=== PATIENT | male | born 1955 | race Caucasian/White ===

== ENCOUNTER → 2023-10-23 07:55 | Outpatient (REF) | payer MEDICARE, SELFPAY ==
[2023-10-23 10:03] LABS: % Basophils 0.7 % (0-2); % Eosinophils 0.4 % (0-6); % Immature Granulocytes 0.7 % (0-0.5); % Monocytes 7.2 % (1.7-9.3); Absolute Lymphocytes 1.3 10^3/uL (1.2-3.4); Absolute Monocytes 0.2 10^3/uL (0.1-0.6); Absolute Neutrophils 1.3 10^3/uL (1.4-6.5); Hemoglobin 11.1 g/dL (13.0-18.0); Mean Corp Hgb Conc. 32.6 g/dL (33.0-37.0); Mean Corpuscular Hgb 37.2 pg (27.0-31.0); Mean Corpuscular Volume 114.1 fL (80.0-94.0); Mean Platelet Volume 10.4 fL (7.4-10.4); Nucleated Red Blood Cells % 1.4 % (-); Platelet Count 140 10^3/uL (130-400); Red Blood Cell Count 2.98 10^6/uL (4.70-6.10); Red Cell Dist. Width 12.5 % (11.5-14.5); White Blood Cell Count 2.8 10^3/uL (4.8-10.8)
[2023-10-23 10:30] LABS: C-Reactive Protein < 5.00 mg/L (0.0-10.00)
[2023-10-23 11:00] LABS: Hepatitis B Surface Antigen Negative (Negative)
[2023-10-23 11:13] LABS: Erythrocyte Sed Rate 38 mm/hour (0-20)
[2023-10-23 11:18] LABS: Hepatitis B Core Ab, Total Negative (Negative); Hepatitis C Antibody Negative (Negative)
[2023-10-23 15:14] LABS: Hepatitis A Antibody, Total Negative (Negative)
[2023-10-24 17:46] LABS: HCV Quant by NAAT IU/mL Not Detected; HCV Quant by NAAT Interp Not Detected (Not Detected); HCV Quant by NAAT Log IU/mL Not Detected log IU/mL
[2023-10-26 03:47] LABS: Quantiferon Mitogen minus NIL >10.00 IU/mL; Quantiferon NIL 0.02 IU/mL; Quantiferon Plus TB2 minus NIL 0.01 IU/mL (0.00-0.34); Quantiferon TB Gold Plus Negative (Negative)
== END ==
LOC: REG 07:55
PROVIDERS: ATTENDING PHYSICIAN Internal Medicine; FAMILY PHYSICIAN Internal Medicine
DX: K75.9 Inflammatory liver disease, unspecified (principal); M05.79 Rheumatoid arthritis with rheumatoid factor of multiple sites without organ or systems involvement; Z22.7 Latent tuberculosis; Z51.81 Encounter for therapeutic drug level monitoring
CPT/HCPCS: 36415; 85025; 85652; 86140; 86480; 86704; 86708; 86803; 87340; 87522

== ENCOUNTER → 2024-01-03 07:57 | Outpatient (REF) | payer MEDICARE, SELFPAY ==
[2024-01-03 08:49] LABS: % Basophils 0.7 % (0-2); % Immature Granulocytes 1.4 % (0-0.5); % Monocytes 9.4 % (1.7-9.3); % Neutrophils 66.5 % (42.2-75.2); Absolute Eosinophils 0.1 10^3/uL (0-0.7); Absolute Immature Granulocytes 0.1 10^3/uL (0-0.05); Absolute Lymphocytes 1.2 10^3/uL (1.2-3.4); Absolute Monocytes 0.5 10^3/uL (0.1-0.6); Absolute Neutrophils 3.8 10^3/uL (1.4-6.5); Hematocrit 30.1 % (39.0-52.0); Hemoglobin 10.2 g/dL (13.0-18.0); Mean Corp Hgb Conc. 33.9 g/dL (33.0-37.0); Mean Corpuscular Hgb 36.4 pg (27.0-31.0); Mean Corpuscular Volume 107.5 fL (80.0-94.0); Mean Platelet Volume 10.5 fL (7.4-10.4); Nucleated Red Blood Cells % 0.3 % (-); Platelet Count 203 10^3/uL (130-400); Red Cell Dist. Width 13.6 % (11.5-14.5); White Blood Cell Count 5.8 10^3/uL (4.8-10.8)
[2024-01-03 09:00] LABS: Erythrocyte Sed Rate 75 mm/hour (0-20)
[2024-01-03 09:29] LABS: ALT (SGPT) < 10 U/L (0-50); AST (SGOT) 20 U/L (17-59); Albumin 3.7 g/dl (3.5-5.0); Alkaline Phosphatase 87 U/L (38-126); Blood Urea Nitrogen 14 mg/dl (9-20); Calcium 9.3 mg/dl (8.4-10.2); Carbon Dioxide 22 mmol/L (22-30); Chloride 98 mmol/L (98-107); Glucose 83 mg/dl (70-99); Potassium 4.2 mmol/L (3.5-5.1); Sodium 134 mmol/L (135-145); Total Protein 7.1 g/dl (6.3-8.2); eGFR > 60.00
[2024-01-03 09:38] LABS: C-Reactive Protein < 5.00 mg/L (0.0-10.00)
== END ==
LOC: REG 07:57
PROVIDERS: ATTENDING PHYSICIAN Internal Medicine; FAMILY PHYSICIAN Internal Medicine
DX: M05.79 Rheumatoid arthritis with rheumatoid factor of multiple sites without organ or systems involvement (principal); Z51.81 Encounter for therapeutic drug level monitoring
CPT/HCPCS: 36415; 80053; 85025; 85652; 86140

== ENCOUNTER → 2024-01-08 07:27 | Outpatient (REF) | payer MEDICARE, SELFPAY | LOC: RAD 07:27 | PROVIDERS: ATTENDING PHYSICIAN Surgery Vascular Surgery; FAMILY PHYSICIAN Internal Medicine | DX: I77.9 Disorder of arteries and arterioles, unspecified (principal) | CPT/HCPCS: 93922; 93925 ==

== ENCOUNTER 2024-01-11 08:39 | Day surgery (SDC) | payer MEDICARE, SELFPAY ==
[2024-01-11] VITALS (25 sets, daily range): BP systolic 91–135; BP diastolic 54–92; BMI 18.3
[2024-01-11] MEDS: NSS 204 ML IV (09:21)
[2024-01-11 09:29] LABS: Hematocrit 32.5 % (39.0-52.0); Hemoglobin 10.7 g/dL (13.0-18.0); Mean Corp Hgb Conc. 32.9 g/dL (33.0-37.0); Mean Corpuscular Hgb 35.9 pg (27.0-31.0); Mean Corpuscular Volume 109.1 fL (80.0-94.0); Mean Platelet Volume 10.6 fL (7.4-10.4); Platelet Count 189 10^3/uL (130-400); Red Blood Cell Count 2.98 10^6/uL (4.70-6.10); Red Cell Dist. Width 13.6 % (11.5-14.5); White Blood Cell Count 6.1 10^3/uL (4.8-10.8)
[2024-01-11 09:35] LABS: INR 1.12; PT 14.2 Sec (11.4-14.6)
[2024-01-11 09:36] LABS: APTT 35.5 Sec (23.4-35.0)
[2024-01-11 09:39] LABS: Blood Urea Nitrogen 12 mg/dl (9-20); Calcium 9.2 mg/dl (8.4-10.2); Carbon Dioxide 26 mmol/L (22-30); Chloride 101 mmol/L (98-107); Estimated Creatinine Clearance 112 ml/min; Glucose 100 mg/dl (70-99); Potassium 4.5 mmol/L (3.5-5.1); Sodium 131 mmol/L (135-145); eGFR > 60.00
--- NOTE | 2024-01-11 10:30 | W.SUR.PREOP ---
Pre-Operative Surgical Note
-
I have examined this patient prior to the performance of the scheduled procedure.
The patient's condition is unchanged from the time of the current History and
Physical and the patient is able to undergo the scheduled procedure.
--- NOTE | 2024-01-11 11:42 | W.IMMPOSTOP ---
Surgical Immed Post Op Note
-
Primary Surgeon: Dr. Fabio Maki III, MD
Assisting Surgeon: Dr. Santiago Cervantes MD, PhD (PGY-1)
Pre-op Diagnosis: Peripheral arterial occlusive disease
Post-op Diagnosis: Peripheral arterial occlusive disease
Procedure Performed: Diagnostic angiogram of the left lower extremity
Anesthesia Type: MAC
Specimen / Cultures: None
Estimated Blood Loss: Minimal
Complications: None
Operative Findings: The right femoral artery had significant disease by ultrasound. After vascular access into the right common femoral with a micropuncture kit, a sheath was inserted. Wire access was obtained by crossing into the contralateral
iliac-femoral system. Contrast was injected and demonstrated significant disease throughout the iliac-femoral vessels. The wire was removed, and palpable pulses were confirmed along the prior left lower extremity bypass. The patient tolerated the
procedure well, and the sheath will be removed with occlusive pressure in recovery.
[2024-01-11] MEDS: DILAUDID 0.5 MG IV (12:17)
--- NOTE | 2024-01-11 15:41 | OR.RPT ---
Operative Report
Operative Report
Date of Operation: 01/11/2024
Pre Op Diagnosis:
1.) Peripheral arterial occlusive disease with suspected bypass stenosis based on abnormal surveillance duplex
2.) Previous right lower extremity [id number] amputation
Post Op Diagnosis:
1.) Peripheral arterial occlusive disease with suspected bypass stenosis based on abnormal surveillance duplex
2.) Previous right lower extremity [id number]-[id number] amputation
Procedure:
1.) Selective catheterization of first-order lower extremity artery
2.) Diagnostic aortobiiliac arteriogram
3.) Diagnostic left lower extremity arteriogram
4.) Ultrasound-guided percutaneous access to the right common femoral artery
Surgeon: Fabio Maki III, MD
Bus Girl: Santiago Cervantes MD PhD, PGY1
Anesthesia: Sedation with local
Fluoroscopy:
10.6 min
78 mGy
22.95 Gy.cm2
Complications: None
Estimated Blood Loss: Minimal
History and Indications for Procedure: 68-year-old male with known severe peripheral arterial occlusive disease and prior right lower extremity amputation. Presents with abnormal surveillance duplex of his left lower extremity bypass. I made the
recommendation that we proceed with a diagnostic arteriogram of the left lower extremity with possible endovascular intervention.
Procedure in Detail: Adam Larios was correctly identified and placed supine on the operating table. After adequate induction of anesthesia the bilateral groins were prepped and draped in the usual sterile fashion. A timeout was performed with
the nursing and anesthesia staff confirming the patient's identity as well as the nature and laterality of the procedure.
The right common femoral artery was identified under ultrasound guidance. The artery was patent but heavily calcified and significant occlusive atherosclerotic plaque was identified. The superior and inferior aspects of the femoral head were
identified with radiographic guidance and marked at the skin level. The proposed puncture site was infiltrated with local anesthesia. We saved a copy of the ultrasound image to the medical record. Under ultrasound guidance we accessed the right
common femoral artery with a micropuncture needle and upsized to a 5 Fr sheath over a Bentson wire. The wire and a Shepherds hook flush catheter were advanced into the distal abdominal aorta and a diagnostic aorto-biiliac arteriogram was performed:
AORTO-ILIAC ARTERIOGRAM:
Aorta: Diffusely and heavily calcified. Patent with no significant stenosis identified.
Right common iliac artery: Heavily calcified. Diffusely stenotic with high-grade calcified stenosis in the proximal right common iliac artery
Right external iliac artery: Diffusely diseased with high-grade stenosis.
Left common iliac artery: Heavily calcified. Significant calcified stenosis identified at the origin and midportion of the common iliac artery. Significant angulation of the common iliac artery identified.
Left external iliac artery: Heavily calcified with 2 areas of high-grade stenosis identified in the proximal and distal segments.
Under roadmap guidance using a Glidewire and the Shepherds hook catheter we selected the left common iliac artery and then the external iliac artery. I could not easily pass the wire through the distal left external iliac artery calcified stenosis.
Multiple attempts were made. I was concerned about vessel injury and compromising the bypass with continued attempts therefore I performed the remainder of the diagnostic arteriogram with the catheter in the left common iliac artery. A diagnostic
left lower extremity arteriogram was then performed which demonstrated the following:
LEFT LOWER EXTREMITY:
Common femoral artery: Evidence of prior common femoral artery endarterectomy. Patent with no stenosis identified
Profunda femoral artery: Diffusely diseased and calcified. High-grade proximal stenosis identified, heavily calcified.
Superficial femoral artery: Chronically occluded.
Bypass: The common femoral artery to posterior tibial artery bypass was patent. No vein graft stenosis was identified. The proximal anastomosis was patent with no stenosis identified. The distal anastomosis appeared to be patent with no stenosis
identified. Outflow was through the posterior tibial artery. Contrast opacification in the distal calf and ankle was poor likely due to location of the catheter and loss of contrast volume/washout.
Satisfied with this result we concluded the procedure. The catheter was removed from the right femoral sheath.
The patient tolerated the procedure well and was taken to the recovery area in stable condition.
Attestation: I was present and responsible for the entire procedure.
Signed:
Fabio Maki III, MD
Vascular Surgery
[phone] (cscr)
--- NOTE | 2024-01-11 15:56 | W.PN.UPDATE ---
Update Note
Progress Note Update
Based on the distribution and location of his left iliac artery inflow disease coupled with difficulty navigating the wire up and over from the right common femoral artery access I elected to conclude today's procedure after the diagnostic portion.
My plan will be to bring Mr. Larios back to the operating room next week for an attempt at retrograde left iliac artery intervention via a bypass cutdown/exposure.
This was discussed with him in detail. The technical aspects of this procedure were discussed with him in detail. The benefits and rationale for this approach were discussed with him in detail. Operative risks were discussed with him in detail
including but not limited to bleeding, bypass thrombosis, Infection, wound healing complications, inability to successfully complete endovascular intervention, distal embolization and limb loss. He agrees to proceed with surgery as detailed above.
== END 2024-01-11 17:00 | disposition home or self-care (01) ==
LOC: CATH 08:39
PROVIDERS: ATTENDING PHYSICIAN Surgery Vascular Surgery; FAMILY PHYSICIAN Internal Medicine; OTHER PHYSICIAN Internal Medicine Cardiovascular Disease
DX: I70.209 Unspecified atherosclerosis of native arteries of extremities, unspecified extremity (principal); I25.84 Coronary atherosclerosis due to calcified coronary lesion; I73.9 Peripheral vascular disease, unspecified; I10 Essential (primary) hypertension; E78.5 Hyperlipidemia, unspecified; J44.9 Chronic obstructive pulmonary disease, unspecified; Z95.820 Peripheral vascular angioplasty status with implants and grafts; Z89.511 Acquired absence of right leg below knee; I70.0 Atherosclerosis of aorta
CPT/HCPCS: 36245; 75625; 75716; 74176; 76937; 80048; 85027; 85610; 85730; 93005; C1894; Q9967

== ENCOUNTER → 2024-01-15 08:10 | Outpatient (REF) | payer MEDICARE, SELFPAY | LOC: RAD 08:10 | PROVIDERS: ATTENDING PHYSICIAN Internal Medicine; FAMILY PHYSICIAN Internal Medicine | DX: M81.0 Age-related osteoporosis without current pathological fracture (principal) | CPT/HCPCS: 77080 ==

== ENCOUNTER 2024-01-18 08:24 | Inpatient (IN) | payer MEDICARE, SELFPAY ==
[2024-01-18] VITALS (15 sets, daily range): BP systolic 107–141; BP diastolic 54–88; BMI 17.8
[2024-01-18 09:16] LABS: Hematocrit 30.6 % (39.0-52.0); Hemoglobin 10.3 g/dL (13.0-18.0); Mean Corp Hgb Conc. 33.7 g/dL (33.0-37.0); Mean Corpuscular Hgb 37.1 pg (27.0-31.0); Mean Corpuscular Volume 110.1 fL (80.0-94.0); Mean Platelet Volume 10.2 fL (7.4-10.4); Platelet Count 212 10^3/uL (130-400); Red Blood Cell Count 2.78 10^6/uL (4.70-6.10); Red Cell Dist. Width 13.5 % (11.5-14.5); White Blood Cell Count 6.1 10^3/uL (4.8-10.8)
[2024-01-18] MEDS: BACTROBAN NASAL 1 GRAM NASAL (09:26)
[2024-01-18] MEDS: PERIDEX 0.12% ORAL RINSE 15 ML PO (09:28)
[2024-01-18 09:31] LABS: INR 1.08; PT 13.8 Sec (11.4-14.6)
[2024-01-18 09:32] LABS: APTT 34.3 Sec (23.4-35.0)
[2024-01-18 09:33] LABS: Blood Urea Nitrogen 10 mg/dl (9-20); Calcium 8.9 mg/dl (8.4-10.2); Carbon Dioxide 26 mmol/L (22-30); Chloride 101 mmol/L (98-107); Estimated Creatinine Clearance 112 ml/min; Glucose 89 mg/dl (70-99); Potassium 4.7 mmol/L (3.5-5.1); Sodium 132 mmol/L (135-145); eGFR > 60.00
[2024-01-18] MEDS: NSS 500 IV (09:37)
[2024-01-18] MEDS: DILAUDID 0.5 MG IV (15:41)
--- NOTE | 2024-01-18 15:43 | OR.RPT ---
Operative Report
Operative Report
Date of Operation: 01/18/2024
Pre Op Diagnosis: Threatened left lower extremity bypass with extensive calcified left iliac occlusive disease
Post Op Diagnosis: Threatened left lower extremity bypass with extensive calcified left iliac occlusive disease
Procedure:
1.) Cutdown and exposure of left lower extremity bypass in the proximal left thigh for endovascular access and intervention
2.) Retrograde intravascular lithotripsy of calcified left common iliac artery & left external iliac artery stenoses (9mm x 30mm L6 Shockwave balloon)
3.) Balloon angioplasty and stenting of left common iliac artery (overlapping 8 mm x 39 mm [place] VBX stents)
4.) Balloon angioplasty and stenting of left external iliac artery (overlapping 7 mm x 59 mm [place] VBX stents)
5.) Runoff arteriogram of the left lower extremity
Surgeon: Fabio Maki III, MD
Ceiling Installer: Santiago Cervantes MD PhD, PGY1
Anesthesia: Sedation with local
Fluoroscopy:
23.1 min
255 mGy
57.23 Gy.cm2
Complications: None
Estimated Blood Loss: 20 cc
History and Indications for Procedure: 68-year-old male with abnormal surveillance duplex and recent arteriogram demonstrating severe calcified inflow disease in his left iliac arterial system. He was brought to the operating room for endovascular
intervention
Procedure in Detail: Adam Larios was correctly identified and placed supine on the operating table. The ultrasound was marked with ultrasound at the skin level in the proximal left thigh. After adequate induction of anesthesia the bilateral
groins and left thigh were prepped and draped in the usual sterile fashion. A timeout was performed with the nursing and anesthesia staff confirming the patient's identity as well as the nature and laterality of the procedure.
An incision was made over the proximal left thigh over the bypass. Electrocautery and careful sharp dissection were used to expose a segment of the bypass. Proximal and distal control was obtained with vessel loops. Systemic heparin was
administered. Under direct visualization the bypass was accessed in a retrograde fashion with a micropuncture needle. I upsized to a 5 Czech sheath over a Bentson wire. Using a Quickcross and Glidewire I navigated retrograde through the heavily
calcified high-grade left external and common iliac artery stenoses. The wire and catheter were advanced into the abdominal aorta. An aortoiliac arteriogram was performed which demonstrated scattered areas of high-grade calcified stenosis in the
common iliac artery and external iliac artery. I upsized to a 7 Czech sheath. The wire was exchanged out for a 0.018 wire. A 5 mm angioplasty balloon was used to predilate the entire left iliac artery. Due to the heavily calcified nature of the
arterial disease and in an effort to modify the calcium to achieve maximum luminal gain with endovascular intervention I elected to proceed with intravascular lithotripsy. A 9 mm x 30 mm L6 shockwave balloon was placed across the stenosis under
roadmap guidance. Alternating rounds of lithotripsy pulse delivery at sub-nominal pressure and angioplasty at nominal pressure was performed across the stenosis. In between rounds of pulse delivery and angioplasty the balloon was deflated and
repositioned under roadmap guidance. All 300 pulses were delivered.
A subsequent arteriogram was performed which demonstrated a significant improvement in the appearance of the left common iliac artery and left external iliac artery with some residual stenosis remaining. I exchanged the wire out for a Storq wire.
Under roadmap guidance I treated the left common iliac artery disease with overlapping 8 mm x 39 mm [place] VBX stents. Each of these was deployed individually under roadmap guidance in the desired location. I then treated the left external iliac
artery with overlapping 8 mm x 39 mm [place] VBX stents. Each of these was deployed under roadmap guidance individually in the desired location. A 7 mm x 20 mm angioplasty balloon was used to treat a residual stenosis in the proximal aspect of the
left common iliac artery stent at the origin of the left common iliac artery.
A completion arteriogram demonstrated an excellent technical result. There was significant improvement in flow through the left common iliac artery and external iliac artery. There was a mild residual stenosis at the proximal aspect of the left
common iliac artery stent at the origin of the left common iliac artery. The left lower extremity bypass was widely patent. The proximal anastomosis was patent with no stenosis identified. The vein graft was widely patent with no stenosis
identified. The distal anastomosis at the distal posterior tibial artery was patent. There was retrograde flow through the posterior tibial artery towards the proximal calf. Antegrade flow through the [place] posterior tibial artery towards the
foot was identified but appeared diffusely diseased and small in diameter.
Satisfied with this result we concluded the procedure. The sheath was removed from the bypass. The bypass was allowed to forward bleed temporarily which was strongly pulsatile and brisk. The proximal and distal bypass was flushed with heparinized
saline solution. The vessel loops were secured. The arteriotomy was repaired with a single 6-0 Prolene suture. The vessel loops were released and there was a strong pulse easily palpable in the vein graft proximal and distal to the repair. The
suture line repair was hemostatic. The pulse in the bypass was significantly stronger than compared to pretreatment. The wound was irrigated with saline solution. The wound was then closed in layers and sterile skin glue was applied.
A robust Doppler signal was marked at the skin level over the posterior tibial artery location at the ankle.
The patient tolerated the procedure well and was taken to the recovery area in stable condition.
Attestation: I was present and responsible for the entire procedure.
Signed:
Fabio aMki III, MD
[facility] Vascular Surgery
[phone] (dpbh)
--- NOTE | 2024-01-18 15:56 | W.IMMPOSTOP ---
Surgical Immed Post Op Note
-
Primary Surgeon: Dr. Fabio Maki III, MD
Assisting Surgeon: Dr. Santiago Cervantes MD, PhD (PGY-1)
Pre-op Diagnosis: Threatened left lower extremity bypass with severe occlusive left iliac peripheral artery disease
Post-op Diagnosis: Threatened left lower extremity bypass with severe occlusive left iliac peripheral artery disease
Procedure Performed: cut down of left lower extremity bypass; diagnostic angiography; balloon angioplasty; intravascular lithotripsy of left common iliac and left external iliac; 8x39mm covered stents x2 in left common iliac; 7x59mm covered stents
x2 in left external iliac
Anesthesia Type: MAC
Specimen / Cultures: None
Estimated Blood Loss: 20cc
Complications: None
Operative Findings: The patient was brought to the OR and placed in the supine position with bilateral groins prepped and draped in usual sterile fashion. Ultrasound guidance was used to identify the left lower extremity bypass anastomosis to the
left common femoral artery. The trajectory of the bypass graft was marked on the skin. An incision was made at the skin along the path of the bypass distal to the anastomosis. The bypass graft was exposed and proximal and distal control was achieved
with vessel loops. A micropuncture kit was used to gain access to the bypass graft. A 5 canadian sheath was upsized over a [place] wire. A quickcross and glidewire was then used to access the iliac system in retrograde fashion. Arteriogram showed
extensive disease of the left common iliac and left external iliac arterial systems. A balloon angioplasty was performed for pre-treatment of the iliac system. Intravascular lithotripsy with a 9mm diameter balloon was then performed at 2 robert and
4atm. This was followed by the placement of two overlapping 8x39mm covered stents in the left common iliac artery and two overlapping 7x59mm covered stents in the left external iliac artery. A balloon angioplasty was performed again at the proximal
left common iliac where there remained a focal area of narrowing. Following this, an arteriogram was performed and showed improved patency of the left common and external iliac system with improved flow through the bypass graft. After this, the
sheath was removed from the bypass and heparinized saline was injected into the bypass graft proximally and distally. A figure of eight suture made with a 6-0 prolene suture was used to close the access site in the bypass graft. The wound bed was
irrigated and hemostasis was achieved with gel foam and fibrillar. The soft tissues were closed with running 3-0 suture followed by skin closure with running 4-0 suture and glue. At the conclusion of the case, there was a strong dp and pt doppler
signal in the left lower extremity. The patient was transferred to the PACU in stable condition.
[2024-01-18] MEDS: DILAUDID 0.25 MG IV (15:57)
[2024-01-18] MEDS: NSS 1000 IV (16:24)
--- NOTE | 2024-01-18 16:59 | PTCARENOTE ---
Pt arrived to [facility] from PACU s/p left common iliac stent placement. Pt on 1L NC satting 97%, IVF infusing, patient states mild pain. L thigh incision C/D/I, MIR with glue, + pulses with doppler, R BKA noted. Pt oriented to call peraza and room, bed
locked and in lowest position,c all peraza within reach.
[2024-01-18] MEDS: NEURONTIN 600 MG PO (17:33)
[2024-01-18] MEDS: HEPARIN 5000 UNITS SC (19:58)
[2024-01-18] MEDS: PROTONIX 40 MG PO (19:58)
[2024-01-18] MEDS: REMERON 15 MG PO (21:12)
[2024-01-19 03:01] VITALS: BP 122/61
--- NOTE | 2024-01-19 07:00 | W.PN.VS ---
Addendum entered and electronically signed by Sandip Thornton MD 01/19/24 11:38:
Note when I arrived here, I did go to patient's room to see if he was still here, but he had been discharged already. Plan of care and plan of discharge had been discussed with me already by TIGRE Conn as noted below. I was in agreement. I was
alerted now regarding rhythm strips overnight that demonstrated PACs. Not made aware of this earlier. I called patient to discuss with him. He is having no palpitations. No chest pain or pressure. No racing heartbeat. Feels well. Discussed
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 And I discussed with him that should he have any of those symptoms to immediately call 911. He is understanding fully.
Addendum entered and electronically signed by SANTANA Frias 01/19/24 07:52:
Dr. Thornton operating another hospitalist morning, plans discussed with him. He is in agreement with plan. Patient very eager to go home this morning and prefers not to wait to see Dr. Thornton. Dr. Thornton is aware, patient agreeable to call the office with
any new concerns or changes in his health. Patient will also be seeing his PCP on Sunday morning.
Original Note:
Today's Communication / Plan
-
Discussed with Dr. Thornton
Assessment/Plan
-
POD1 Cutdown and exposure of left lower extremity bypass in the proximal left thigh for endovascular access and intervention
Retrograde intravascular lithotripsy of calcified left common iliac artery & left external iliac artery stenoses (9mm x 30mm L6 Shockwave balloon)
Balloon angioplasty and stenting of left common iliac artery (overlapping 8 mm x 39 mm [place] VBX stents)
Balloon angioplasty and stenting of left external iliac artery (overlapping 7 mm x 59 mm [place] VBX stents)
Plan:
-Continue aspirin/Plavix
-Okay for DC from vascular standpoint
-Office will call patient with follow-up appointment
Subjective Data
-
Date of Service: January 19, 2024
Patient seen at bedside this a.m. Patient offers no complaints at this time, eager to go home. No events overnight
Objective Data
-
Vital Signs
Temp Pulse Resp BP Pulse Ox
97.4 F 75 16 122/61 96
01/19/24 03:01 01/19/24 03:01 01/19/24 03:01 01/19/24 03:01 01/19/24 03:01
Intake and Output
01/18/24 01/19/24 01/20/24
06:59 06:59 06:59
Intake Total 1205 / 1205
Output Total 1800 / 1800
Balance -595 / -595
Intake:
Oral fluids 910 / 910
IV fluids (Total) 295 / 295
NSS 275 / 275
Nss 1,000 ml @ 80 mls/hr IV . 20 / 20
[id number] AYAZ Rx#:[id number]
Output:
Urine, Voided 1800 / 1800
Other:
How many times incontinent 1
MODERATE amount urine
Lab Results
01/18/24 09:08
01/18/24 09:08
Calcium 8.9 mg/dl (8.4-10.2) 01/18/24 09:08
Physical Exam
-
AAOx3
No tachypnea
No tachycardia
Abdomen soft
Groin site clean dry and intact, no swelling, soft
+Doppler PT signal
--- NOTE | 2024-01-19 07:05 | W.DS.TRANS ---
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
-
Discharge Instructions:
Sleep Apnea Risk Intermediate
Discharge Diagnosis/Procedures Cutdown and exposure of left lower extremity
bypass in the proximal left thigh for
endovascular access and intervention
Retrograde intravascular lithotripsy of
calcified left common iliac artery & left
external iliac artery stenoses (9mm x 30mm L6
Shockwave balloon)
Balloon angioplasty and stenting of left common
iliac artery (overlapping 8 mm x 39 mm [place] VBX
stents)
Balloon angioplasty and stenting of left
external iliac artery (overlapping 7 mm x 59 mm
[place] VBX stents)
Runoff arteriogram of the left lower extremity
Diet No restrictions
Activity No strenuous activity
Driving Restrictions As prior to admission
Bathing Restrictions OK to Shower
Others Tests Ultrasound: Office will call with appt
Instructions:
Stand-Alone Forms: DC Instr - Vascular OR
Changes to Home Medications: No
Discharge Medications:
DC Medications w/original date entered in [employer]
acetaminophen 325 mg tablet 650 mg (2 x 325 mg) PO Q4HPRN PRN mild pain 01/17/21
bupropion HCl 200 mg tablet,12 hr sustained-release (Wellbutrin SR) 200 mg PO DAILY Mental Health 09/08/21
gabapentin 600 mg tablet 600 mg PO QPM Pain 09/08/21
polyethylene glycol 3350 17 gram oral powder packet 17 grams PO DAILYPRN PRN constipation 01/06/22
ascorbic acid (vitamin C) 500 mg tablet (Vitamin C) 500 mg PO DAILY Supplement 01/16/23
aspirin 81 mg chewable tablet 81 mg PO DAILY Blood clot prevention/tx 01/16/23
clopidogrel 75 mg tablet 75 mg PO DAILY Blood clot prevention/tx 01/16/23
cyanocobalamin (vitamin B-12) 1,000 mcg tablet 1,000 mcg PO DAILY Supplement 01/16/23
golimumab 12.5 mg/mL intravenous solution (Simponi ARIA) 100 mg IV Q8W rheumatoid arthritis 01/16/23
pantoprazole 40 mg tablet,delayed release 40 mg PO BID Gastrointestinal issue 01/16/23
sennosides 8.6 mg tablet (senna) 1 tab PO BIDPRN PRN constipation 01/16/23
atorvastatin 20 mg tablet 20 mg PO DAILY 01/10/24
levothyroxine 200 mcg tablet 200 mcg PO DAILY 01/10/24
mirtazapine 15 mg tablet (Remeron) 15 mg PO HS 01/10/24
multivitamin 1 tab PO DAILY 01/10/24
Home Medication Changes
Pending Results: No
[2024-01-19 07:44] VITALS: BP 111/60
[2024-01-19] MEDS: PLAVIX 75 MG PO (08:26)
[2024-01-19] MEDS: LOW STRENGTH ASPIRIN 81 MG PO (08:26)
[2024-01-19] MEDS: VITAMIN C 500 MG PO (08:27)
[2024-01-19] MEDS: VITAMIN B-12 1000 MCG PO (08:27)
[2024-01-19] MEDS: THERAGRAN 1 TABLET PO (08:27)
[2024-01-19] MEDS: HEPARIN 5000 UNITS SC (08:27)
[2024-01-19] MEDS: PROTONIX 40 MG PO (08:27)
[2024-01-19] MEDS: LIPITOR 20 MG PO (08:27)
--- NOTE | 2024-01-19 09:45 | PTCARENOTE ---
Patient stated he would to wellbutrin and synthroid when he gets home at home
--- NOTE | 2024-01-19 09:58 | PTCARENOTE ---
Patient discharged to home. Left via volunteer escort transport with personal rolling walker. Son Adam picking up patient. All discharge paperwork reviewed with patient. Left with all personal belongings.
--- NOTE | 2024-01-19 10:35 | PTCARENOTE ---
Noted patient had PACs on tele strip at 0730 today. Macy Conn, vascular BENCH PRESS OPERATOR notified.
--- NOTE | 2024-01-19 10:47 | CM ---
CM following re: discharge planning.
Reviewed pt's chart, met with pt.
Pt is a 68 year old male, admitted with primary dx of POD1 Cutdown and exposure of left lower extremity bypass in the proximal left thigh.
Pt reports he lives alone in an apartment 4th floor, has supportive daughter and son Brenton. Pt reports he is getting around in a wheelchair, family helps as needed.
PCP: Gunnar Castellano
Pharmacy: [facility]
Discharge order noted. Pt is aware, expressed his agreement with discharge and he stated his son Brenton will transport home. IMM reviewed, placed on chart, pt has a copy. Pt stated he will not need any after care VN services.
D/C plan: home no needs. Son Brenton to transport.
--- NOTE | 2024-01-22 14:38 | W.DCSUMMARY ---
Discharge Summary
Discharge Data
Date of Admission: 01/18/24
Date of Discharge: 01/19/24
-
Pending Results: No
Hospital Course
Attending: Fabio Maki III, MD
Consultants: None
Allergies: NKDA
Procedure with date: 01/18/2024
1.) Cutdown and exposure of left lower extremity bypass in the proximal left thigh for endovascular access and intervention
2.) Retrograde intravascular lithotripsy of calcified left common iliac artery & left external iliac artery stenoses (9mm x 30mm L6 Shockwave balloon)
3.) Balloon angioplasty and stenting of left common iliac artery (overlapping 8 mm x 39 mm [place] VBX stents)
4.) Balloon angioplasty and stenting of left external iliac artery (overlapping 7 mm x 59 mm [place] VBX stents)
5.) Runoff arteriogram of the left lower extremity
History of present illness: The patient is an 68 -year-old male with multiple medical conditions including: PAD, hypertension, hyperlipidemia, COPD, rheumatid arthritis, depression, and GI bleed. Patient presented on 01/18/2024 for scheduled procedure
with Dr. Maki. Patient presented at baseline health with no reports of recent illness.
Hospital Course: Briefly, the patient underwent scheduled arteriogram with cutdown and exposure of left lower extremity bypass without complications, and recovered in PACU. Following recovery phase one and two patient was transferred to
medical/surgical unit for continued hemodynamic monitoring. POD #1 (01/19/2024) Patient tolerating PO diet. Left leg surgical incision clean, dry, and intact with suture line well approximated and soft. No evidence of hematoma. Patient stable for
discharge to home. Prescriptions and follow up appointment are included in the DC summary manager infrastructure note. All instructions were given to the patient in both written and verbal form and the patient expressed understanding.
Discharge Plan
-
Patient Disposition: Home (Routine Discharge)
Discharge Diagnosis/Procedures: Cutdown and exposure of left lower extremity bypass in the proximal left thigh for endovascular access and intervention
Retrograde intravascular lithotripsy of calcified left common iliac artery & left external iliac artery stenoses (9mm x 30mm L6 Shockwave balloon)
Balloon angioplasty and stenting of left common iliac artery (overlapping 8 mm x 39 mm [place] VBX stents)
Balloon angioplasty and stenting of left external iliac artery (overlapping 7 mm x 59 mm [place] VBX stents)
Runoff arteriogram of the left lower extremity
Condition: Good
Diet: No restrictions
Activity: No strenuous activity
Driving Restrictions: As prior to admission
Bathing Restrictions: OK to Shower
Others Tests: Ultrasound: Office will call with appt
Stand Alone Forms: DC Instr - Vascular OR
Referrals:
Gunnar Castellano MD [Family Provider] -
Sunitha Davis CRNP [Specified Professional Personl] - (Vascular office will call you with your appt time)
Prescriptions:
Continued
gabapentin 600 MG tablet
600 mg PO QPM
bupropion HCl [Wellbutrin SR] 200 MG tablet sustained-release 12 hr
200 mg PO DAILY
polyethylene glycol 3350 17 GRAMS powder in packet
17 grams PO DAILYPRN PRN (Reason: constipation )
sennosides [senna] 1 TABLET tablet
1 tab PO BIDPRN PRN (Reason: constipation)
pantoprazole 40 MG tablet,delayed release (DR/EC)
40 mg PO BID
Simponi ARIA 12.5 mg/mL Solution
100 mg IV Q8W
cyanocobalamin (vitamin B-12) 1,000 MCG tablet
1,000 mcg PO DAILY
clopidogrel 75 MG tablet
75 mg PO DAILY
ascorbic acid (vitamin C) [Vitamin C] 500 MG tablet
500 mg PO DAILY
aspirin 81 MG tablet,chewable
81 mg PO DAILY
multivitamin Tablet
1 tab PO DAILY
atorvastatin 20 mg Tablet
20 mg PO DAILY
levothyroxine 200 mcg Tablet
200 mcg PO DAILY
mirtazapine [Remeron] 15 mg Tablet
15 mg PO HS
acetaminophen 325 MG tablet
650 mg PO Q4HPRN PRN (Reason: mild pain) 0RF
Discharge Orders:
Discharge Patient (As Directed); Ordered 01/19/24
Ordered By: Macy Conn
Discharge Date and Time
Discharge Date/Time: 01/19/24 10:00
Print Language: BOLIVIAN
== END 2024-01-19 10:00 | disposition home or self-care (01) | DRG 279 ==
LOC: 2 SOUTH 08:24
PROVIDERS: ADMITTING PHYSICIAN Surgery Vascular Surgery; FAMILY PHYSICIAN Internal Medicine
PROC: B41G1ZZ Fluoroscopy of Left Lower Extremity Arteries using Low Osmolar Contrast (ICD-10-PCS; 2024-01-18)
PROC: 04FD3ZZ Fragmentation of Left Common Iliac Artery, Percutaneous Approach (ICD-10-PCS; 2024-01-18)
PROC: 047J3DZ Dilation of Left External Iliac Artery with Intraluminal Device, Percutaneous Approach (ICD-10-PCS; 2024-01-18)
PROC: 04FJ3ZZ Fragmentation of Left External Iliac Artery, Percutaneous Approach (ICD-10-PCS; 2024-01-18)
PROC: 047D3DZ Dilation of Left Common Iliac Artery with Intraluminal Device, Percutaneous Approach (ICD-10-PCS; 2024-01-18)
DX: I70.322 Atherosclerosis of unspecified type of bypass graft(s) of the extremities with rest pain, left leg (principal); K92.2 Gastrointestinal hemorrhage, unspecified; I10 Essential (primary) hypertension; J44.9 Chronic obstructive pulmonary disease, unspecified; E78.5 Hyperlipidemia, unspecified; F32.A Depression, unspecified; M19.90 Unspecified osteoarthritis, unspecified site; Z79.82 Long term (current) use of aspirin; Z79.02 Long term (current) use of antithrombotics/antiplatelets; Z79.890 Hormone replacement therapy; Z79.52 Long term (current) use of systemic steroids
CPT/HCPCS: 37221; 77080; 80048; 85027; 85610; 85730; 86850; 86900; 86901; 87070; C1725; C1769; C1874; C1894; C9765

== ENCOUNTER → 2024-01-24 09:50 | Outpatient (REF) | payer MEDICARE, SELFPAY | LOC: RAD 09:50 | PROVIDERS: ATTENDING PHYSICIAN Nurse Practitioner | DX: Z04.3 Encounter for examination and observation following other accident (principal); W19.XXXA Unspecified fall, initial encounter; M51.35 Other intervertebral disc degeneration, thoracolumbar region | CPT/HCPCS: 72072; 72110 ==

== ENCOUNTER → 2024-02-12 07:17 | Outpatient (REF) | payer MEDICARE, SELFPAY ==
[2024-02-12 08:26] LABS: % Basophils 0.7 % (0-2); % Eosinophils 1.3 % (0-6); % Immature Granulocytes 0.9 % (0-0.5); % Lymphocytes 25.5 % (20.5-51.1); % Monocytes 7.6 % (1.7-9.3); Absolute Eosinophils 0.1 10^3/uL (0-0.7); Absolute Immature Granulocytes 0.1 10^3/uL (0-0.05); Absolute Lymphocytes 1.4 10^3/uL (1.2-3.4); Absolute Monocytes 0.4 10^3/uL (0.1-0.6); Absolute Neutrophils 3.5 10^3/uL (1.4-6.5); Hematocrit 30.1 % (39.0-52.0); Hemoglobin 9.5 g/dL (13.0-18.0); Mean Corp Hgb Conc. 31.6 g/dL (33.0-37.0); Mean Corpuscular Hgb 35.4 pg (27.0-31.0); Mean Corpuscular Volume 112.3 fL (80.0-94.0); Mean Platelet Volume 10.6 fL (7.4-10.4); Nucleated Red Blood Cells % 0.9 % (-); Platelet Count 145 10^3/uL (130-400); Red Blood Cell Count 2.68 10^6/uL (4.70-6.10); Red Cell Dist. Width 13.8 % (11.5-14.5); White Blood Cell Count 5.5 10^3/uL (4.8-10.8)
[2024-02-12 08:53] LABS: ALT (SGPT) < 10 U/L (0-50); AST (SGOT) 17 U/L (17-59); Albumin 3.3 g/dl (3.5-5.0); Alkaline Phosphatase 103 U/L (38-126); Blood Urea Nitrogen 9 mg/dl (9-20); Calcium 8.7 mg/dl (8.4-10.2); Carbon Dioxide 22 mmol/L (22-30); Chloride 103 mmol/L (98-107); Glucose 76 mg/dl (70-99); Iron 132 ug/dl (49-181); Potassium 4.7 mmol/L (3.5-5.1); Sodium 136 mmol/L (135-145); Total Bilirubin 0.9 mg/dl (0.2-1.3); Total Protein 6.9 g/dl (6.3-8.2); eGFR > 60.00
[2024-02-12 09:34] LABS: TSH < 0.02 uIU/ml (0.47-4.68)
== END ==
LOC: REG 07:17
PROVIDERS: ATTENDING PHYSICIAN Nurse Practitioner; FAMILY PHYSICIAN Internal Medicine; OTHER PHYSICIAN Internal Medicine; REFERRING PHYSICIAN Physical Medicine & Rehabilitation
DX: I70.309 Unspecified atherosclerosis of unspecified type of bypass graft(s) of the extremities, unspecified extremity (principal); E03.9 Hypothyroidism, unspecified; M06.9 Rheumatoid arthritis, unspecified; D64.9 Anemia, unspecified
CPT/HCPCS: 36415; 80053; 82728; 83540; 84443; 85025

== ENCOUNTER → 2024-02-22 10:42 | Outpatient (REF) | payer MEDICARE, SELFPAY | LOC: RAD 10:42 | PROVIDERS: ATTENDING PHYSICIAN Surgery Vascular Surgery; FAMILY PHYSICIAN Internal Medicine | DX: I77.9 Disorder of arteries and arterioles, unspecified (principal) | CPT/HCPCS: 93922; 93925; 93978 ==

== ENCOUNTER → 2024-02-29 06:48 | Outpatient (REF) | payer MEDICARE, SELFPAY | LOC: PAVMRI 06:48 | PROVIDERS: ATTENDING PHYSICIAN Physical Medicine & Rehabilitation; FAMILY PHYSICIAN Internal Medicine | DX: M54.6 Pain in thoracic spine (principal); W19.XXXA Unspecified fall, initial encounter | CPT/HCPCS: 72146 ==

== ENCOUNTER → 2024-03-11 13:44 | Outpatient (REF) | payer MEDICARE, SELFPAY ==
[2024-03-11 15:40] LABS: % Basophils 0.4 % (0-2); % Eosinophils 0.9 % (0-6); % Immature Granulocytes 1.1 % (0-0.5); % Lymphocytes 18.9 % (20.5-51.1); % Monocytes 7.4 % (1.7-9.3); % Neutrophils 71.3 % (42.2-75.2); Absolute Eosinophils 0.1 10^3/uL (0-0.7); Absolute Immature Granulocytes 0.1 10^3/uL (0-0.05); Absolute Lymphocytes 1.3 10^3/uL (1.2-3.4); Absolute Monocytes 0.5 10^3/uL (0.1-0.6); Hematocrit 28.3 % (39.0-52.0); Hemoglobin 9.2 g/dL (13.0-18.0); Mean Corp Hgb Conc. 32.5 g/dL (33.0-37.0); Mean Corpuscular Hgb 35.7 pg (27.0-31.0); Mean Corpuscular Volume 109.7 fL (80.0-94.0); Mean Platelet Volume 10.1 fL (7.4-10.4); Platelet Count 231 10^3/uL (130-400); Red Blood Cell Count 2.58 10^6/uL (4.70-6.10); Red Cell Dist. Width 13.3 % (11.5-14.5)
[2024-03-11 16:14] LABS: ALT (SGPT) < 10 U/L (0-50); AST (SGOT) 19 U/L (17-59); Albumin 3.4 g/dl (3.5-5.0); Alkaline Phosphatase 114 U/L (38-126); Blood Urea Nitrogen 11 mg/dl (9-20); Calcium 8.4 mg/dl (8.4-10.2); Carbon Dioxide 22 mmol/L (22-30); Chloride 99 mmol/L (98-107); Glucose 66 mg/dl (70-99); Potassium 4.4 mmol/L (3.5-5.1); Sodium 134 mmol/L (135-145); Total Bilirubin 0.8 mg/dl (0.2-1.3); eGFR > 60.00
== END ==
LOC: HWRAD 13:44
PROVIDERS: ATTENDING PHYSICIAN Nurse Practitioner; FAMILY PHYSICIAN Internal Medicine
DX: R91.8 Other nonspecific abnormal finding of lung field (principal); R89.8 Other abnormal findings in specimens from other organs, systems and tissues; D53.9 Nutritional anemia, unspecified; E05.90 Thyrotoxicosis, unspecified without thyrotoxic crisis or storm; M25.551 Pain in right hip
CPT/HCPCS: 36415; 71260; 73502; 80053; 84155; 84165; 84443; 85025; Q9967

== ENCOUNTER 2024-03-24 06:33 | Outpatient (REF) | payer MEDICARE, SELFPAY ==
[2024-03-24] VITALS (12 sets, daily range): BP systolic 84–119; BP diastolic 56–70
[2024-03-24 07:09] LABS: % Basophils 0.7 % (0-2); % Eosinophils 0.9 % (0-6); % Immature Granulocytes 1.4 % (0-0.5); % Lymphocytes 13.6 % (20.5-51.1); % Monocytes 6.3 % (1.7-9.3); % Neutrophils 77.1 % (42.2-75.2); Absolute Basophils 0.1 10^3/uL (0-0.2); Absolute Eosinophils 0.1 10^3/uL (0-0.7); Absolute Immature Granulocytes 0.1 10^3/uL (0-0.05); Absolute Lymphocytes 1.2 10^3/uL (1.2-3.4); Absolute Monocytes 0.5 10^3/uL (0.1-0.6); Absolute Neutrophils 6.5 10^3/uL (1.4-6.5); Hematocrit 26.8 % (39.0-52.0); Hemoglobin 9.1 g/dL (13.0-18.0); Mean Corpuscular Hgb 35.5 pg (27.0-31.0); Mean Corpuscular Volume 104.7 fL (80.0-94.0); Mean Platelet Volume 11.2 fL (7.4-10.4); Nucleated Red Blood Cells % 0.7 % (-); Platelet Count 159 10^3/uL (130-400); Red Blood Cell Count 2.56 10^6/uL (4.70-6.10); Red Cell Dist. Width 13.5 % (11.5-14.5); White Blood Cell Count 8.5 10^3/uL (4.8-10.8)
[2024-03-24 07:19] LABS: INR 1.13; PT 14.6 Sec (11.4-14.6)
== END 2024-03-24 11:55 | disposition home or self-care (01) ==
LOC: RADI 06:33
PROVIDERS: ATTENDING PHYSICIAN Internal Medicine
DX: C34.32 Malignant neoplasm of lower lobe, left bronchus or lung (principal); Z87.891 Personal history of nicotine dependence
CPT/HCPCS: 88305; 32400; 36415; 71045; 71046; 77012; 81459; 85025; 85610; 88333; 88341; 88342; 99152; 99153

== ENCOUNTER → 2024-04-18 08:17 | Outpatient (REF) | payer MEDICARE, SELFPAY ==
[2024-04-18 08:51] VITALS: BP 103/63; BP_SYST 80
[2024-04-18] MEDS: ANCEF 10 IV (09:14)
[2024-04-18 10:24] VITALS: BP 105/59; BP_SYST 92
[2024-04-18 10:51] VITALS: BP 110/64
== END ==
LOC: RADI 08:17
PROVIDERS: ATTENDING PHYSICIAN Internal Medicine Hematology & Oncology; FAMILY PHYSICIAN Internal Medicine
DX: C34.92 Malignant neoplasm of unspecified part of left bronchus or lung (principal); D50.0 Iron deficiency anemia secondary to blood loss (chronic)
CPT/HCPCS: 36561; 76937; 77001; 99152; 99153; C1788

== ENCOUNTER 2024-05-14 14:22 | Inpatient (IN) | payer MEDICARE, SELFPAY ==
[2024-05-14] VITALS (15 sets, daily range): BP systolic 115–147; BP diastolic 66–93; BMI 17.6
--- NOTE | 2024-05-14 10:00 | EDRN ---
Arminda NEWMAN currently at the pts bedside speaking with the pt
--- NOTE | 2024-05-14 10:16 | ED.GENMED ---
History of Present Illness
General
Chief Complaint: Vascular Symptoms
Source: patient
Exam Limitations: none
Time Seen by Provider: 05/14/24 09:59
Nursing documentation reviewed up to this point in time: agreed with
History of Present Illness
History of Present Illness:
pt is a 68 y/o M with h/o newly diagnosed metastatic lung CA, chronic vasculopath (multiple LE vascular surgeries, PAD, including a R AKA 3 yeras ago, known to dr. foster/louisa and also heme/onc dr. maradiaga)
here from outpatient MRI where pt was having a screening MRI for metastatic disease and he was brought over with findings of subacute infarct R parietal and frontal lobes as well as what appears to be occlusion of R ICA;
he has no symptoms currently
his L side is his stronger side and he would like to preserve what function he has
he is on asa and plavix
he was brought over by MRI
Past History
Past History
ED Past Medical History: Hypercholesterolemia, Hypothyroidism, Psychiatric (anxiety, depressionj), Other (PVD) and Other (RA,); Negative NIDDM
ED Past Surgical History: Orthopedic (AKA right)
Social History
Tobacco: Former smoker (quit x 1 yr)
Alcohol: Daily (1-2 glasses of wine)
Drug: None
Personal: Single
Living: with family
Employment: Not employed
Family History
Family History: Other (Noncontributory)
Review of Systems
Review of Systems
Allergies reviewed?: Yes
All Other Systems: Not applicable
Phy Exam
Physical Exam
Physical Exam:
GENERAL: Alert , in no apparent distress
HEAD: NCAT
EYE: pupils equal and reactive, no nystagmus, photophobia
NECK: Supple,full rom, nontender
ENT: o/p clr, mmm.
CARDIAC: Regular rate and rhythm . no edema
LUNGS: Clear breath sounds bilaterally, no acute respiratory distress, no wheezes/rales/rhonchi
ABDOMEN: Soft, without focal tenderness, no r/g, no cvat
NEUROLOGICAL: Alert and orientedx 4, cn intact, no facial asymmetry strength intact B/L UE, LLE (right AKA moving appropriately), sensation intact, neg pronator drift
SKIN: Warm and dry, skin intact.
MUSCULOSKELETAL: No edema,
right AKA
PSYCH: Normal and appropriate interaction.
Course
Orders/Labs/Results
Orders:
Orders
05/14/24 10:16
Cardiac Monitoring- Treatment ONCE
05/14/24 10:17
Electrocardiogram (*1) Stat
Reason for Study: Other
Other Reason for Exam: neuro symptoms
EKG- Treatment ONCE
05/14/24 10:29
Cardiovascular Evaluation Urgent
Comment: ADD ON
Complete Blood Count/With Diff Urgent
Comprehensive Metabolic Panel Urgent
PTT Urgent
Prothrombin Time Urgent
05/14/24 11:03
Consult Neurology [NEUROLOGY CONSULT] Urgent
Consulting Provider: Radha Salguero
Was physician already notified: Yes
Aspirin 325 mg PO NOW STA
05/14/24 11:18
CT Head & Neck Angio W/wo IV Routine
Comment:
Reason For Exam: stroke workup
05/14/24 11:50
Echo 2D MMode Color/Doppler Routine
Reason for Study: stroke workup
05/14/24 13:01
Clopidogrel Bisulfate [Plavix] 75 mg PO NOW STA
05/14/24 13:45
Admit/Transfer Patient As Directed
Co-Sign Provider:
Level of Care: Inpatient admission
Assign to:: Telemetry
Physician / Group: Hospitalist
Diagnosis: Embolic stroke
Reason for Telemetry: CVA/TIA
Date to Stop Telemetry: 05/17/24
Time to Stop Telemetry: 11:00
Reason for Hospitalization: Right Subacute Infarct
Expected length of stay greater than two midnights?: Yes
ELOS- Estimated Length of Stay in days: 3
I certify the patient meets the requirements for IP care: Yes
05/14/24 13:46
PRN Pain Medication Management As Directed
May give lesser potent ordered pain med per pt: Yes
preference::
Protocol:: Medication orders for pain may be administered in a
manner that supports deferring to patient preference
when the pt is:
- Requesting an ordered lesser potent pain medication.
Least to most potent pain medications are defined
as: acetaminophen < NSAID < tramadol < opioids
(morphine, oxycodone, hydromorphone).
- Requesting a lesser dose of the same medication IF
ORDERED.
- Requesting a less intrusive route of administration
if both routes are prescribed by the provider (PO <
IV).
05/14/24 13:56
Code Status As Directed
Resuscitation Status: Full Code
05/14/24 14:21
Add On- LAB Urgent
Tests Added?: Lipid profile [Cardiovascular Evaluation]
05/17/24 11:00
DC Protocol for Telemetry ONCE
Abnormal Lab Results
05/14/24
10:29
RBC 2.86 L 10^6/uL
(4.70-6.10)
Hgb 9.7 L g/dL
(13.0-18.0)
Hct 28.4 L %
(39.0-52.0)
MCV 99.3 H fL
(80.0-94.0)
MCH 33.9 H pg
(27.0-31.0)
RDW 19.9 H %
(11.5-14.5)
Abs Immat Gran (auto) 0.2 H 10^3/uL
(0-0.05)
Absolute Lymphs (auto) 0.1 L 10^3/uL
(1.2-3.4)
Immature Gran % 4.4 H %
(0-0.5)
Neutrophils % 90.8 H %
(42.2-75.2)
Lymphocytes % 1.9 L %
(20.5-51.1)
PT 14.9 H Sec
(11.4-14.6)
Sodium 134 L mmol/L
(135-145)
Creatinine 0.6 L mg/dL
(0.7-1.3)
Glucose 106 H mg/dl
(70-99)
Calcium 7.8 L mg/dl
(8.4-10.2)
Total Protein 6.1 L g/dl
(6.3-8.2)
Albumin 3.0 L g/dl
(3.5-5.0)
05/14/24 10:29
05/14/24 10:29
Vital Signs
Initial and Last Documented VS:
Initial Vital Signs
Temp Pulse Resp BP Pulse Ox
98.1 F 98 18 147/83 98
05/14/24 09:41 05/14/24 09:41 05/14/24 09:41 05/14/24 09:41 05/14/24 09:41
Last Documented Vital Signs
Temp Pulse Resp BP Pulse Ox
98.5 F 72 10 127/66 98
05/14/24 10:33 05/14/24 15:05 05/14/24 15:05 05/14/24 14:09 05/14/24 14:09
MDM/Problems Addressed
Differential Diagnosis Includes:
stroke, dissection, carotid stenosis
MDM/Problems Addressed:
68 y/o M vasculopath, has had multiple LE vascular surgeries here and has R AKA, newly diagnosed metastatic lung cancer; started treatment a few weeks ago
went for brain imaging to eval for brain mets
has what looks like acute vs/ subacute r frontal and parietal lobe infarct (more likely subacute) with visualized portion of the R ICA suggestive of possible occlusion vs. slow flow;
he has no new deficits and no complaints; known to dr. foster and louisa;
consulted neurologist who ordered CTA head/neck
will admit for further w/u
*Critical Care Note
Total Time (30-74mins, 75-104mins- exclusive of procedures): Not Applicable
ED Attending Note
-
Portions of this chart may have been created with voice recognition software.� Occasional wrong word or��sound alike� substitutions may have occurred due to the inherent limitations of voice recognition software.
Discharge Plan
Departure
Patient Disposition: Admit
Date of Disposition: 05/14/24
Time of Disposition: 11:03
Presentation/result/management discussed w/ accepting MD/DO: Hospitalist
Condition: Fair
Covid-19: Not Applicable
Discharge Problem:
Stroke
Interventions
Interventions:
*Risk Screen - Suicide Last Done: 05/14/24 10:33
*General Assessment Last Done: 05/14/24 10:33
*Neglect/Abuse Screening Last Done: 05/14/24 10:33
ED- Fall Risk Assessment Last Done: 05/14/24 10:33
*ED COVID-19 Vaccine History Last Done: 05/14/24 10:33
ED- Cardiac Assessment Last Done: 05/14/24 10:33
ED- Pulmonary Assessment Last Done: 05/14/24 10:33
ED-Peripheral Vascular Assessment Last Done: 05/14/24 10:33
ED-Skin Assessment Last Done: 05/14/24 10:33
--- NOTE | 2024-05-14 10:35 | EDRN ---
the pt is resting in stretcher in the lowest position, side rails up x2, call peraza within reach, HOB elevated, no s/s of distress, this RN placed a Right upper arm #20 PIV and dakota and sent labs, the pt has a RCW Port, the pt also has a right AKA,
no s/s of distress, no c/o chest pain, no c/o SOB, will continue to monitor the pt closely
--- NOTE | 2024-05-14 11:15 | EDRN ---
the pt pressed the call peraza and this RN and the PCT entered the pts room, the pt stated that he needed to use the bathroom, the pt was able to get into his w/c by himself and go to the bathroom, the pt was able to get back into the w/c then back
into stretcher, no s/s of distress, will continue to monitor the pt closely
[2024-05-14 11:21] LABS: INR 1.17; PT 14.9 Sec (11.4-14.6)
[2024-05-14 11:22] LABS: APTT 31.6 Sec (23.4-35.0)
--- NOTE | 2024-05-14 11:24 | EDRN ---
neurology currently at the pts bedside
--- NOTE | 2024-05-14 11:31 | CON.NEURO4 ---
Addendum entered and electronically signed by Radha Salguero DO 05/14/24 15:09:
Studies reviewed.
I have personally examined the patient. I agree with the ASSISTANT PORTFOLIO MANAGER's Note.
My addenda:
68 year-old male with a history of squamous cell ca of the lung; MRI brain showed incidental finding of R parietal/frontal lobe ischemic infarct; he reports feeling completely asymptomatic with this. NIHSS is 0. Not a candidate for TNK/IAT as time
of onset is unknown.
CTA showed
1. No acute intracranial abnormality identified. Findings on MRI of earlier the same date are indistinct on noncontrast CT.
2. Complete occlusion of the right internal carotid artery. Approximately 50% stenosis of the proximal left internal carotid artery.
3. Multifocal severe stenoses of both extradural vertebral arteries as well as the bilateral intradural vertebral arteries as detailed above. Questionable occlusion versus severe stenosis proximal right vertebral artery. Severe stenosis proximal
left vertebral artery.
4. Anterior, middle, and posterior cerebral arteries show no major branch vessel occlusion. There is diffuse narrow caliber of right middle cerebral artery branches related to the ICA occlusion. There is narrowing of both posterior cerebral
arteries.
5. Pleural-based mass lesion left upper chest as seen on previous CT chest examinations. Emphysema.
Reviewed with his oncologist--Dr. Redd. Would clear for switch to anticoagulation after ~3 days given size of strokes/risk of hemorrhagic conversion. DAPT until then. Echo pending.
Consult vascular for CTA findings. Will continue to follow.
Original Note:
Documented by User: Cristela Rosario NP 05/14/24 13:29
Consultation - Neurology 4
-
CONSULTING PHYSICIAN: Radha Salguero DO
REFERRING PHYSICIAN: RAVEN/Arminda Ruiz PA-C
DICTATED BY: SANTANA Gu
DATE/TIME OF REQUEST: 05/14/24
DATE/TIME OF CONSULTATION: 05/14/24
Reason for Consultation: Incidental stroke finding on MRI brain
History of Present Illness:
This is a 68-year-old left-handed male with a recent diagnosis of left lower lung squamous cell carcinoma who has presented to the hospital after completing an outpatient MRI brain for metastases workup. MRI brain demonstrates an acute/subacute
right parietal/frontal lobe ischemic infarct, and patient was referred to ER for stroke workup. Patient denies any stroke symptoms or change in his baseline in the past few weeks. He is not a candidate for TNK/IAT due to being outside of the time
window and NIHSS 0.
He has been taking DAPT with aspirin/plavix for his extensive vascular history. He does have a history of paroxysmal Afib, a 12 second run was demonstrated on telemetry monitoring once. He has a history of GI bleed and OAC was deferred due to this.
He denies missing any doses of his medications except for not taking his meds yet today. He denies any headache, dizziness, vision changes, speech difficulty, numbness, weakness, nausea, chest pain, and palpitations. He endorses a 4 year history of
swallowing difficulty in addition to poor appetite. He feels like food gets stuck in his throat easily. He also endorses a several month history of dyspnea on exertion. He denies any history of TIA or stroke in the past.
He is followed by [facility]/onc Dr. Redd and radiation/onc at [facility]. He recently started chemotherapy with Carbo-Taxol once weekly, his second dose of this was yesterday (05/13/24), he reports tolerating this fairly well. He receiving radiation 5
days per week.
Past Medical History: Squamous cell carcinoma LLL, paroxysmal Afib, COPD, HTN, HLD, hypothyroidism, anxiety, depression, PAD, PVD, RA, osteomyelitis, GI bleeds, PUD
Surgical History: R AKA, R BKA, RLE bypass, thoracentesis,
Family History: Reviewed and noncontributory.
Social History: Former smoker, 30 2PPD. 1-2 glasses wine daily. Denies illicit drug use.
Allergies: No known allergies.
Home Medications: See below.
Review of Symptoms:
Patient denies any fever, headache, chest pain, shortness of breath, GI or symptoms.
�Per the HPI.�All systems are reviewed negative except above.
Physical Exam:
The patient is afebrile, abdomen is nondistended, breathing is unlabored, skin is warm and dry, R AKA amputation.
NIH Stroke Scale:
I performed the NIH stroke scale on the patient on 05/14/24 at 1145. The patient scored 0 points on the NIH stroke scale assessment, which were assigned as follows: See below.
Neurologic Examination:
The patient is awake, alert and oriented x 3. He is able to follow commands and answer questions appropriately. There is no aphasia or dysarthria. On cranial nerve assessment, pupils are 3 mm bilateral, round and reactive to light and
accommodation. Visual ruiz are full. Extraocular movements are intact. Facial sensations are intact and bilaterally symmetrical, there is no facial asymmetry. Hearing is diminished bilaterally to normal conversation volume. Tongue palate and
uvula are midline. Sternocleidomastoid strengths are full bilaterally. Motor strengths are 5/5 bilateral upper and left lower extremities on medical research [place] scale. Limited exam of RLE due to AKA, proximal strength is 5/5. There is no drift
or involuntary movement noted. Babinski is absent in the LLE. There was no extinction noted on double simultaneous stimulation. Coordination is intact by finger to nose bilaterally.
Lab Results: See below.
Neuro Imaging:
1, MRI brain 05/14/24: Foci of increased diffusion-weighted signal and decreased ADC signal within the right posterior frontal and parietal lobes, appearance compatible with regions of acute to subacute infarction, most likely subacute. There is loss
of flow void within the visualized superior cervical and petrous portion of the right ICA, suggestive of occlusion, although could possibly be due to slow flow. No evidence for metastatic disease to the brain.
2. CTA head/neck 05/14/24: pending
Differentials for the patient's presentation include:
1. Asymptomatic acute/subacute right parietal/posterior frontal ischemic infarct as demonstrated on MRI brain imaging; unclear etiology, possibly embolic due to Afib (not on OAC), hypercoagulable state in the setting of lung carcinoma, and/or MRI
suggestive of possible R ICA occlusion.
Patient has the following risk factors for their symptoms: Vascular risk factors, Afib (not on OAC), cancer, HTN, HLD, age
IV Tenecteplase/IAT candidacy: He is not a candidate for TNK/IAT due to outside of time window, NIHSS 0.
Recommendations:
-Patient was loaded with aspirin 325mg in the ER. Provide Plavix 75mg x1 now.
-Goal normotension as this event likely occurred >24 hours ago.
-CTA head/neck pending.
-TTE pending.
-Pending results, will need discussion with heme/onc and vascular surgery about potentially stopping antiplatelet therapy and initiating OAC.
-NIHSS and neurological checks per unit guidelines.
-Provide patient with a stroke education packet.
-PT/OT/ST evaluations.
-DVT prophylaxis.
-Will follow pending results.
Discussed patient care with: Dr. Salguero, the patient
Vital Signs and Labs
-
Vital Signs and Labs:
Vital Signs
Temp Pulse Resp BP Pulse Ox
98.5 F 74 12 115/76 95
05/14/24 10:33 05/14/24 11:22 05/14/24 11:22 05/14/24 11:21 05/14/24 11:11
Lab Results
05/14/24 10:29
05/14/24 10:29
PT 14.9 Sec (11.4-14.6) H 05/14/24 10:29
INR 1.17 05/14/24 10:29
APTT 31.6 Sec (23.4-35.0) 05/14/24 10:29
Sodium 134 mmol/L (135-145) L 05/14/24 10:29
Potassium 4.8 mmol/L (3.5-5.1) 05/14/24 10:29
BUN 13 mg/dl (9-20) 05/14/24 10:29
Glucose 106 mg/dl (70-99) H 05/14/24 10:29
Calcium 7.8 mg/dl (8.4-10.2) L 05/14/24 10:29
NIH Stroke Score
Subsequent NIH Scale
Date of Subsequent NIH Scale: 05/14/24
Time of Subsequent NIH Scale: 11:45
NIH Stroke Score
Level of Consciousness: 0 - Alert
LOC Questions: 0-Answers both correctly
LOC Commands: 0-Performs both correctly
Best Horizontal Gaze: 0-Normal
Visual Ruiz: 0=Normal, no visual loss
Facial Palsy: 0=Normal, symmetrical
Motor - Right Arm: 0=No drift 10 seconds
Motor - Left Arm: 0=No drift 10 seconds
Motor - Right Le-No drift 5 seconds
Motor - Left Le-No drift 5 seconds
Limb Ataxia: 0-Absent
Sensation: 0-Normal
Best Language: 0-No aphasia
Dysarthria: 0-Normal
Extinction and Inattention: 0-No abnormality
Total Score:: 0
Modified [place] (mRS) Score
Modified [place] Scale (mRS): No symptoms
Score: 0
Alteplase Contraindication
Inclusion and Exclusion criteria reviewed: Yes
IAT Contraindications: NIHSS < 6

Documented by User: Radha Salguero DO 05/14/24 15:03
NIH Stroke Score
NIH Stroke Score
Total Score:: 0
Modified [place] (mRS) Score
Score: 0
[2024-05-14 11:40] LABS: % Basophils 0.2 % (0-2); % Immature Granulocytes 4.4 % (0-0.5); % Lymphocytes 1.9 % (20.5-51.1); % Monocytes 2.7 % (1.7-9.3); % Neutrophils 90.8 % (42.2-75.2); Absolute Immature Granulocytes 0.2 10^3/uL (0-0.05); Absolute Lymphocytes 0.1 10^3/uL (1.2-3.4); Absolute Monocytes 0.1 10^3/uL (0.1-0.6); Absolute Neutrophils 4.7 10^3/uL (1.4-6.5); Hematocrit 28.4 % (39.0-52.0); Hemoglobin 9.7 g/dL (13.0-18.0); Mean Corp Hgb Conc. 34.2 g/dL (33.0-37.0); Mean Corpuscular Hgb 33.9 pg (27.0-31.0); Mean Corpuscular Volume 99.3 fL (80.0-94.0); Nucleated Red Blood Cells % 1.1 % (-); Red Blood Cell Count 2.86 10^6/uL (4.70-6.10); Red Cell Dist. Width 19.9 % (11.5-14.5); White Blood Cell Count 5.2 10^3/uL (4.8-10.8)
[2024-05-14] MEDS: ASPIRIN 325 MG PO (11:58)
[2024-05-14 12:00] LABS: ALT (SGPT) < 10 U/L (0-50); AST (SGOT) 18 U/L (17-59); Alkaline Phosphatase 94 U/L (38-126); Blood Urea Nitrogen 13 mg/dl (9-20); Calcium 7.8 mg/dl (8.4-10.2); Carbon Dioxide 24 mmol/L (22-30); Chloride 100 mmol/L (98-107); Estimated Creatinine Clearance 105 ml/min; Glucose 106 mg/dl (70-99); Potassium 4.8 mmol/L (3.5-5.1); Sodium 134 mmol/L (135-145); Total Bilirubin 1.2 mg/dl (0.2-1.3); Total Protein 6.1 g/dl (6.3-8.2); eGFR > 60.00
--- NOTE | 2024-05-14 13:12 | EDRN ---
Plavix PO ordered, awaiting for pharmacy to verify order,the pt is being taken to echo
--- NOTE | 2024-05-14 13:12 | EDRN ---
Plavix PO administered, awaiting for pharmacy to verify order,the pt is being taken to echo
--- NOTE | 2024-05-14 14:04 | HPS.HSE ---
Addendum entered and electronically signed by Isaak Stone MD 05/14/24 22:28:
Attending Addendum-
I performed a history and physical exam of the patient and discussed his management with the resident. I reviewed the resident's note and agree with the documented findings and plan of care CC/HPI- Patient sent to ED s/p abnormal MRI results ordered
for brain met screening. Found to have acute/subacute CVA. Patient is completely asymptomatic. New dx of lung ca and started chemo on 05/13. Full 12 point ROS reviewed and negative except as documented Exam- vitals reviewed in EMR GEN-NAD heart RRR
lungs clear abd soft Ext Right AKA right IJ port CDI
Plan:
# Acute/Subacute CVA
- MRI 05/14- Foci of increased diffusion-weighted signal and decreased ADC signal within the right posterior frontal and parietal lobes, appearance compatible with regions of acute to subacute infarction no brain mets
- check CTA-
1. Complete occlusion of the right internal carotid artery. Approximately 50% stenosis of the proximal left internal carotid artery.
2. Multifocal severe stenoses of both extradural vertebral arteries as well as the bilateral intradural vertebral arteries as detailed above. Questionable occlusion versus severe stenosis proximal right vertebral artery. Severe stenosis proximal
left vertebral artery.
3. Anterior, middle, and posterior cerebral arteries show no major branch vessel occlusion. There is diffuse narrow caliber of right middle cerebral artery branches related to the ICA occlusion. There is narrowing of both posterior cerebral
arteries.
- cont DAPT increase statin to high intensity
- not a candidate for TNK
- maintain normotension
- start OAC in @ 3 days
- PT OT speech PMnR c/s
- check ECHO
# Complete RICS and 50% LICS
- cont DAPT and statin
- c/s vascular for eval
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
- care per onc Dr. Redd
- s/p chemo on 05/13- carbo/taxol
# Severe PAD
- s/p multiple procedures including right AKA
- cont dapt
- c/s vasc surg
# Hyponatremia-
- mild
- cont IVF
- repeat BMP in am
# Paroxysmal A fib
- will likely need OAC
- high risk due to h/o GI bleed
- monitor on tele
- check echo
# COPD
- not in AE
- cont nebs prn
# RA-
- on chronic steroids- continue
- hold simponi
# HTN
- cont toprol XL
# Etoh Abuse
- monitor closely for w/d
- counselled re abstinence
- may need to place on MSAS protocol
# Hypothyroidism
- cont levothyroxine
# Peripheral Neuropathy
- cont gabapentin
# Severe PCM
- nutrition consult
# GERD
- cont Protonix
DVT p - lovenox
Code- Full
Time spent coordinating care, review of plan of care with resident, personally reviewed previous records in EMR, med rec, labs, radiology, d/w nursing, family (daughter) �- 78 mins
Original Note:
Family Physician
-
Family Physician: Gunnar Castellano
Chief Complaint
-
no complaints
History of Present Illness
Pt is a 68 y/o M with h/o hypertension, hyperlipidemia, hypothyroidism, rheumatoid arthritis, peripheral arterial disease s/p��R AKA 3 years ago , left toe osteomyelitis,� newly diagnosed metastatic lung CA. He is a known patient to Dr. Thornton/louisa
and also heme/onc Dr. Redd.
Patient was here for� outpatient MRI where pt was having a screening MRI for metastatic disease and he was brought over with findings of subacute infarct R parietal and frontal lobes as well as what appears to be occlusion of R ICA; despite being on
clopidogrel 75 ans Aspirin 81 mg.� He denies missing any doses.� He denies any headache, visual changes, facial numbness, lower extremity weakness, chest pain, shortness of breath, palpitations.� For left toe osteomyelitis he was treated with IV
antibiotics infusions for 16 days.� Patient has a history of paroxysmal afib, OAC was deferred as he also has a h/o GI bleed due to PUD.� Patient is currently on chemotherapy once a week, radiation 5 days a week.� Last chemotherapy was on 05/13.�
Right internal jugular port was placed on 04/18.�
Medical History
Past Medical History
Past Medical History: Reports Arrhythmia, Cancer, HTN, Hypothyroidism and NIDDM
Past Surgical History: Reports Other (right AKA )
Additional Past Surgical History:
AKA right
Social History
Tobacco: Former Smoker (quit 2019)
Alcohol: Daily (1-2 glasses of wine )
Personal: Single
Living: With Family
Employment: Not Employed
Family History
Family History: Not pertinent
Allergies / Home Medications
Allergies reflects when Allergies were last updated in [facility].
Home Medications with original date entered in [facility]
Allergy/Medication List:
Allergies
Allergy/AdvReac Type Severity Reaction Status Date / Time
No Known Allergies Allergy Verified 05/14/24 09:40
Home Medications
acetaminophen 325 mg tablet 650 mg (2 x 325 mg) PO Q4HPRN PRN mild pain 01/17/21
bupropion HCl 200 mg tablet,12 hr sustained-release (Wellbutrin SR) 200 mg PO DAILY Mental Health 09/08/21
gabapentin 600 mg tablet 600 mg PO HS Pain 09/08/21
ascorbic acid (vitamin C) 500 mg tablet (Vitamin C) 500 mg PO DAILY Supplement 01/16/23
aspirin 81 mg chewable tablet 81 mg PO DAILY Blood clot prevention/tx 01/16/23
clopidogrel 75 mg tablet 75 mg PO DAILY Blood clot prevention/tx 01/16/23
cyanocobalamin (vitamin B-12) 1,000 mcg tablet 1,000 mcg PO DAILY Supplement 01/16/23
atorvastatin 20 mg tablet 40 mg PO DAILY High Cholesterol 01/10/24
multivitamin 1 tab PO DAILY Supplement 01/10/24
metoprolol succinate 25 mg tablet,extended release 24 hr (Toprol XL) 12.5 mg PO DAILY Blood Pressure 04/18/24
golimumab 12.5 mg/mL intravenous solution (Simponi ARIA) 100 mg IV Q8W rheumatologic condition 05/14/24
levothyroxine 150 mcg tablet (Synthroid) 150 mcg PO DAILY Thyroid 05/14/24
loperamide 2 mg tablet 2 mg PO Q6HPRN PRN diarrhea 05/14/24
ondansetron HCl 8 mg tablet 8 mg PO [id number] PRN nausea 05/14/24
pantoprazole 40 mg tablet,delayed release (Protonix) 40 mg PO DAILY Gastrointestinal Issue 05/14/24
prednisone 5 mg tablet 5 mg PO DAILYPRN PRN ra inflammation 05/14/24
tramadol 50 mg tablet 50 mg PO TIDPRN PRN moderate pain 05/14/24
Review of Systems
-
History Source: Patient
A 12 point ROS was completed and negative except as noted: Yes
Constitutional: Reports No Symptoms
EENT: Reports No Symptoms
Respiratory: Reports No Symptoms
Cardiac: Reports No Symptoms
Abdomen/GI: Reports No Symptoms
: Reports No Symptoms
Musculoskeletal: Reports No Symptoms
Skin: Reports No Symptoms
Neurological: Reports No Symptoms
Endocrine: Reports No Symptoms
Hematologic/Lymphatic: Reports No Symptoms
Psych: Reports No Symptoms
Physical Exam
Vital Signs
Vital Signs
Temp Pulse Resp BP Pulse Ox
98.5 F 74 12 115/76 95
05/14/24 10:33 05/14/24 11:22 05/14/24 11:22 05/14/24 11:21 05/14/24 11:11
Physical Exam
General: Comfortable and Conversant
HEENT: NormoCephalic, Anicteric and Moist mucous membranes
Respiratory: Clear; No Rales, Rhonchi or Crackles
Cardiac: S1/S2 and Regular Rhythm
Musculoskeletal: No Clubbing and Other (right above knee amputation )
Skin: Other (black eschar on left second toe )
Neuro: Awake, Alert, Oriented, No Motor Deficits, No Sensory Deficits and Other (no neglect, decreased dorsalis pulses b/l, finger-nose test normal); No Slurred Speech, Facial Droop or Tremors
Psych: Calm
Laboratory Results
-
05/14/24 10:
05/14/24 10:
Laboratory Results
PT 14.9 Sec (11.4-14.6) H 05/14/24 10:
INR 1.17 05/14/24 10:
APTT 31.6 Sec (23.4-35.0) 05/14/24 10:
Total Bilirubin 1.2 mg/dl (0.2-1.3) 05/14/24 10:
AST 18 U/L (17-59) 05/14/24 10:
ALT < 10 U/L (0-50) 05/14/24 10:
Alkaline Phosphatase 94 U/L (38-126) 05/14/24 10:29
Data Reviewed
-
MRI: Report Reviewed by me and Discussed with Physician
Lab Data: Labs Reviewed by me and Discussed with Physician
Impression/Plan
-
IMPRESSION:
Subacute infarct with occlusion of right ICA
History of paroxysmal atrial fibrillation
Hypertension
Hyperlipidemia
History of GI bleed
History of PAD s/p right AKA
Rheumatoid arthritis on chronic prednisone use
Hypothyroidism
Anxiety/depression
Assessment and Plan:
Subacute infarct with occlusion of right ICA
Suspect Embolic stroke
Patient is lying comfortably, oriented, no aphasia, dysarthria.
Brain MRI negative for hemorrhage
Continue DAPT- 75 mg clopidogrel increase dose of aspirin to 325 mg
Discussed with neurology to wait for 3 days from now before starting OAC given complete occlusion of right ICA and 50 % stenosis of left ICA- risk of conversion to hemorrhagic stroke
Atorvastatin 80 mg
PT/OT
CT head and neck angiogram and echo ordered
Neuro checks per unit guidelines
Neurology following
History of paroxysmal atrial fibrillation
Hold OAC
Echo ordered
EKG shows RBBB
Peripheral vascular disease s/p right AKA
Continue DAPT
Hypertension
Continue metoprolol succinate 12.5 mg
Hyperlipidemia
Start high intensity statin atorvastatin 80 mg
History of GI bleed
Patient is at a high risk to start OAC
Continue pantoprazole 40 mg
Hypothyroidism
Continue levothyroxine
Rheumatoid arthritis on chronic steroid use
Continue prednisone 5 mg
Hold IV golimumab
Anxiety/depression
Continue Wellbutrin
Full code
DVT prophylaxis- SCD, hold lovenox
Diet- chol lowering
Imaging
Brain MRI
Foci of increased diffusion-weighted signal and decreased ADC signal within the right posterior frontal and parietal lobes, appearance compatible with regions of acute to subacute infarction, most likely subacute.
There is loss of flow void within the visualized superior cervical and petrous portion of the right ICA, suggestive of occlusion, although could possibly be due to slow flow.
No evidence for metastatic disease to the brain
Head/neck CTA
IMPRESSION:
1. No acute intracranial abnormality identified. Findings on MRI of earlier the same date are indistinct on noncontrast CT.
2. Complete occlusion of the right internal carotid artery. Approximately 50% stenosis of the proximal left internal carotid artery.
3. Multifocal severe stenoses of both extradural vertebral arteries as well as the bilateral intradural vertebral arteries as detailed above. Questionable occlusion versus severe stenosis proximal right vertebral artery. Severe stenosis proximal
left vertebral artery.
4. Anterior, middle, and posterior cerebral arteries show no major branch vessel occlusion. There is diffuse narrow caliber of right middle cerebral artery branches related to the ICA occlusion. There is narrowing of both posterior cerebral
arteries.
5. Pleural-based mass lesion left upper chest as seen on previous CT chest examinations. Emphysema.
[2024-05-14] MEDS: PLAVIX 75 MG PO (14:07)
[2024-05-14 15:12] LABS: HDL Cholesterol 41 mg/dl; LDL Cholesterol, Calculated 67 mg/dl; Total Cholesterol 121 mg/dl (50-199); Triglyceride 68 mg/dl (10-149); Very Low Density Lipoprotein 13 mg/dl (0-30)
--- NOTE | 2024-05-14 15:15 | EDRN ---
admission orders processed, pharmacy notified
[2024-05-14] MEDS: LIPITOR 80 MG PO (17:42)
[2024-05-14] MEDS: TOPROL XL 12.5 MG PO (17:42)
--- NOTE | 2024-05-14 19:10 | EDRN ---
the pt pressed the call peraza and this RN entered the pts room, the pt stated that he was hungry, this RN provided the pt with an ER lunch box
[2024-05-14] MEDS: NEURONTIN 600 MG PO (22:02)
[2024-05-14] MEDS: LOVENOX 40 MG SC (23:22)
[2024-05-15 03:05] VITALS: BP 118/70
[2024-05-15] MEDS: SYNTHROID 150 MCG PO (06:30)
[2024-05-15 07:32] LABS: ALT (SGPT) < 10 U/L (0-50); AST (SGOT) 21 U/L (17-59); Albumin 2.8 g/dl (3.5-5.0); Alkaline Phosphatase 80 U/L (38-126); Blood Urea Nitrogen 13 mg/dl (9-20); Carbon Dioxide 28 mmol/L (22-30); Chloride 100 mmol/L (98-107); Estimated Creatinine Clearance 105 ml/min; Glucose 78 mg/dl (70-99); Potassium 4.5 mmol/L (3.5-5.1); Sodium 133 mmol/L (135-145); Total Bilirubin 1.2 mg/dl (0.2-1.3); Total Protein 5.9 g/dl (6.3-8.2); eGFR > 60.00
--- NOTE | 2024-05-15 07:32 | W.PN.HOSP.TC ---
Addendum entered and electronically signed by Isaak Stone MD 05/15/24 22:41:
Attending Addendum-
I saw and evaluated the patient. I reviewed the resident�s note and agree with findings and plan as documented in the resident�s note. Sub-patient wants to go home, 'i need my chemo' Patient is completely asymptomatic. Full 12 point ROS reviewed
and negative except as documented Exam- vitals reviewed in EMR GEN-NAD heart RRR lungs clear abd soft Ext Right AKA right IJ port site CDI
Plan:
# Acute/Subacute CVA
- MRI 05/14- Foci of increased diffusion-weighted signal and decreased ADC signal within the right posterior frontal and parietal lobes, appearance compatible with regions of acute to subacute infarction no brain mets
- CTA 05/14-
1. Complete occlusion of the right internal carotid artery. Approximately 50% stenosis of the proximal left internal carotid artery.
2. Multifocal severe stenoses of both extradural vertebral arteries as well as the bilateral intradural vertebral arteries as detailed above. Questionable occlusion versus severe stenosis proximal right vertebral artery. Severe stenosis proximal
left vertebral artery.
3. Anterior, middle, and posterior cerebral arteries show no major branch vessel occlusion. There is diffuse narrow caliber of right middle cerebral artery branches related to the ICA occlusion. There is narrowing of both posterior cerebral
arteries.
- cont DAPT increase statin to high intensity
- not a candidate for TNK
- maintain normotension
- start OAC in @ 2 days and dc ASA cont plavix
- PT OT speech PMnR c/s
- ECHO 05/14-Global hypokinesis with regional
variability. Left ventricular ejection fraction is 35-40%
# Complete RICS and 50% LICS
- cont DAPT and statin
- c/s vascular surg for eval
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
- care per onc Dr. Redd
- c/s onc for eval
- s/p chemo on 05/13- carbo/taxol
# Severe PAD
- s/p multiple procedures including right AKA
- cont dapt
- c/s vasc surg
# HFrEF
- new dx
- Echo 05/14- ef 35-40%
- cards c/s and appreciate input- increase Toprol-XL, add low-dose lisinopril. As an outpatient continue to reassess whether patient is a candidate for switching to Entresto, adding Aldactone or adding SGLT2 inhibitor.
# Hyponatremia-
- mild
- cont IVF
- repeat BMP in am
# Paroxysmal A fib
- start OAC in 2 days (
- high risk due to h/o GI bleed
- monitor on tele
# COPD
- not in AE
- cont nebs prn
# RA-
- on chronic steroids- continue
- hold simponi
# HTN
- cont toprol XL
# Etoh Abuse
- monitor closely for w/d
- counselled re abstinence
- start MSAS protocol
# Hypothyroidism
- cont levothyroxine
# Peripheral Neuropathy
- cont gabapentin
# Severe PCM
- nutrition consult
# GERD
- cont Protonix
DVT p - lovenox
Code- Full
Time spent coordinating care, review of plan of care with resident, personally reviewed previous records in EMR, med rec, labs, radiology, d/w nursing, and cards�- 59 mins
Original Note:
Today's Communication/Plan
-
New reduced LVEF 35-40%
Consult cardiology
Once Ok with cardiology and neurology possible d/c tomorrow
Assessment / Plan
Assessment / Plan
IMPRESSION:
Subacute infarct with occlusion of right ICA
Metastatic Lung cancer
Hyponatremia
History of paroxysmal atrial fibrillation
Hypertension
Hyperlipidemia
History of GI bleed
History of PAD s/p right AKA
Rheumatoid arthritis on chronic prednisone use
Hypothyroidism
Anxiety/depression
Assessment and Plan:
Subacute infarct with occlusion of right ICA
Suspect Embolic stroke
Patient is lying comfortably, oriented, no aphasia, no dysarthria.
Brain MRI negative for hemorrhage
Continue DAPT- 75 mg clopidogrel increase dose of aspirin to 325 mg
Discussed with neurology, plan is to start DOAC after 2 days, until then DAPT. After 2 days DOAC and ASA only.
Atorvastatin 80 mg
PT/OT
CT head and neck angiogram and echo ordered
Neuro checks per unit guidelines
Reduced LVEF 35-40 % -- new
Consult cardiology
Metastatic Lung cancer
Mets to the 6th rib with poorly diff SCC
on going chemotherapy and radiation
Hyponatremia
Euvolemic, moist mucous membrane
Na 133<134
Monitor BMP
History of paroxysmal atrial fibrillation
Hold OAC for 3 days
Echo Global hypokinesis with regional variability. Left ventricular ejection fraction is 35-40% by visual assessment. Mild concentric left ventricular hypertrophy
EKG shows RBBB
Peripheral vascular disease s/p right AKA
Continue DAPT
consult vascular surgery
Hypertension
Continue metoprolol succinate 12.5 mg
Hyperlipidemia
Start high intensity statin atorvastatin 80 mg
History of GI bleed
Patient is at a high risk to start OAC
Continue pantoprazole 40 mg
Hypothyroidism
Continue levothyroxine
Rheumatoid arthritis on chronic steroid use
Continue prednisone 5 mg
Hold IV golimumab
Anxiety/depression
Continue Wellbutrin
Full code
DVT prophylaxis- SCD, hold lovenox
Diet- chol lowering
Imaging
Brain MRI
Foci of increased diffusion-weighted signal and decreased ADC signal within the right posterior frontal and parietal lobes, appearance compatible with regions of acute to subacute infarction, most likely subacute.
There is loss of flow void within the visualized superior cervical and petrous portion of the right ICA, suggestive of occlusion, although could possibly be due to slow flow.
No evidence for metastatic disease to the brain
Head/neck CTA
IMPRESSION:
1. No acute intracranial abnormality identified. Findings on MRI of earlier the same date are indistinct on noncontrast CT.
2. Complete occlusion of the right internal carotid artery. Approximately 50% stenosis of the proximal left internal carotid artery.
3. Multifocal severe stenoses of both extradural vertebral arteries as well as the bilateral intradural vertebral arteries as detailed above. Questionable occlusion versus severe stenosis proximal right vertebral artery. Severe stenosis proximal
left vertebral artery.
4. Anterior, middle, and posterior cerebral arteries show no major branch vessel occlusion. There is diffuse narrow caliber of right middle cerebral artery branches related to the ICA occlusion. There is narrowing of both posterior cerebral
arteries.
5. Pleural-based mass lesion left upper chest as seen on previous CT chest examinations. Emphysema.
Echo:
Normal left ventricular chamber size. Global hypokinesis with regional variability. Left ventricular ejection fraction is 35-40% by visual assessment. Mild concentric left ventricular hypertrophy. Stage I diastolic dysfunction suggestive of
abnormal relaxation. Normal right ventricular size and function. Aortic sclerosis without stenosis.
Patient does not want to stay in the hospital as he has had a bad experience in the past when he was in [place]. Discussed echo results with the patient and we will consult cardiology for further evaluation. Patient seemed upset and would like to be
discharged or else he will leave the hospital by himself.
Anticipated Discharge: 24 - 48 hours
Subjective/Interval History
-
Date of Service: May 15, 2024
Patient denies any lower extremity weakness, no aphasia no dysarthria. Vitals are stable
Objective Data
-
Labs:
Laboratory Results
05/15/24
07:01
WBC Pending
Hgb Pending
Hct Pending
Plt Count Pending
Sodium Pending
Potassium Pending
Chloride Pending
Carbon Dioxide Pending
BUN Pending
Creatinine Pending
Glucose Pending
Calcium Pending
Total Bilirubin Pending
AST Pending
ALT Pending
Alkaline Phosphatase Pending
Vital Signs:
Vital Signs
Temp Pulse Resp BP Pulse Ox
98.5 F 75 20 118/70 97
05/14/24 10:33 05/15/24 06:15 05/14/24 18:39 05/15/24 03:05 05/15/24 06:15
Review of Systems
-
History Source: Patient
All other systems: Reviewed and negative
Physical Exam
-
General: Comfortable and Conversant
HEENT: Normocephalic and Atraumatic
Respiratory: Clear to Auscultation
Cardiac: Regular Rhythm and S1/S2
Musculoskeletal: No Edema
Neuro: AO x 3, No Motor Deficits and Other (feeble dorsalis pulses b/l ); Negative Slurred Speech or Facial Droop
Hematologic / Lymphatic: No Lymphadenopathy
Psych: Calm
Data Reviewed
-
MRI: Report Reviewed by me and Discussed with Physician
Labs: Labs Reviewed by me and Discussed with Physician
[2024-05-15 07:47] LABS: % Basophils 0.4 % (0-2); % Eosinophils 0.2 % (0-6); % Immature Granulocytes 2.3 % (0-0.5); % Lymphocytes 9.3 % (20.5-51.1); % Monocytes 3.4 % (1.7-9.3); % Neutrophils 84.4 % (42.2-75.2); Absolute Immature Granulocytes 0.1 10^3/uL (0-0.05); Absolute Lymphocytes 0.4 10^3/uL (1.2-3.4); Absolute Monocytes 0.2 10^3/uL (0.1-0.6); Hematocrit 28.6 % (39.0-52.0); Hemoglobin 9.8 g/dL (13.0-18.0); Mean Corp Hgb Conc. 34.3 g/dL (33.0-37.0); Mean Corpuscular Hgb 34.3 pg (27.0-31.0); Nucleated Red Blood Cells % 1.1 % (-); Red Blood Cell Count 2.86 10^6/uL (4.70-6.10); Red Cell Dist. Width 19.7 % (11.5-14.5); White Blood Cell Count 4.8 10^3/uL (4.8-10.8)
[2024-05-15] MEDS: PROTONIX 40 MG PO (09:07)
[2024-05-15] MEDS: THERAGRAN 1 TABLET PO (09:07)
[2024-05-15] MEDS: TOPROL XL 12.5 MG PO ×2 (09:07→20:04)
[2024-05-15 09:08] VITALS: BP 130/75
[2024-05-15] MEDS: WELLBUTRIN SR (12 hour sustained release) 200 MG PO (09:08)
--- NOTE | 2024-05-15 09:11 | W.PN.UPDATE ---
Update Note
Progress Note Update
Patient is eager to go home. Plan is:
DAPT with ASA 81mg daily and Plavix 75mg daily until switch to DOAC after two days.
In 2 days, switch to DOAC plus ASA 81mg daily (latter give diffuse intracranial stenoses).
Echo negative for any CSE.
Needs OP f/u with vascular and with neurology, latter in 1 month.
[2024-05-15 10:00] VITALS: BMI 17.6
--- NOTE | 2024-05-15 15:05 | CON.CAR ---
Addendum entered and electronically signed by Brenda Arnold MD 05/15/24 16:28:
I saw and examined the patient.
The Electric Brain [employer] Equipment Mechanic's note was reviewed and I agree with the note.
Comment: I saw the patient independently and examined the patient. Currently clinically stable.
He is very complicated with history of non-small cell lung cancer undergoing treatment, CAD, peripheral vascular disease status post right AKA, paroxysmal atrial fibrillation (previously low burden), paroxysmal atrial tachycardia, RA and
cardiovascular risk factors. As part of the workup for malignancy he underwent a CT scan which revealed an acute/subacute CVA on brain MRI. He then underwent further testing and was noted to have occlusion of the right internal carotid artery and
50% stenosis of left internal carotid artery. He underwent echocardiogram which showed ejection fraction 35 to 40%. He denies chest pain, palpitations, dizziness and syncope. We are consulted for reduction in ejection fraction.
Last echocardiogram 2020 with normal left ventricular ejection fraction however he had cardiac catheterization with chronic total occlusion of distal left circumflex which is medically managed in 2021. At that time V gram in the setting of PVCs
noted ejection fraction of 40%. He underwent Lexiscan nuclear stress test in 2021 which revealed ejection fraction of 33%. It is possible that although echocardiogram now shows ejection fraction of 35 to 40% that is not much different than 2022.
Unclear etiology of decline in ejection fraction compared to 2021. We discussed this at great length and may be in part related to known coronary disease or possibly silent tachyarrhythmias.
-Neurology evaluated the patient and plan right now is for DAPT for 3 days with aspirin and Plavix and then transition to DOAC and aspirin per neurology recommendations with neurology follow-up.
-Plan will be for 14-day monitor, rhythm*, on discharge which may be tomorrow. Want to assess burden of atrial arrhythmias.
-Guideline directed medical therapy for cardiomyopathy is limited because of patient's blood pressure. Will try to increase Toprol-XL slightly. Will add low-dose lisinopril. As an outpatient continue to reassess whether patient is a candidate for
switching to Entresto, adding Aldactone or adding SGLT2 inhibitor.
-Volume status clinically is stable follow-up. Will check proBNP.
-Continue oncology follow-up.
-EKG is stable and no symptoms of chest pain.
-Continue risk factor modification.
Discussed at length with the patient and all questions answered. Follow-up has been arranged.
-Vascular to follow carotid disease
Original Note:
Consultation
Consultation Request
Date/Time Consultation Requested: 05/15/2024
Date/Time Consultation Performed: 05/15/2024 at 1430
Requesting Provider: Dr. Betts
Performing Provider: Margaret Gonzalez PA-C for Dr. Brenda Arnold
Reason for Consultation: CM, CVA
Medical History
-
History of Present Illness:
HPI:Adam is a 68 year old male with PMH of NSCLC, CAD, PVD s/p R AKA, cardiomyopathy, paroxysmal atrial fibrillation, paroxysmal atrial tachycardia, GIB, DM2, COPD, chronic anemia, RA, HTN, HLD, and hypothyroidism. He presented to [facility] after he
was found to have acute/subacute CVA on MRI of brain which was ordered as part of OP cancer workup. He states a few months ago he started to use his prosthesis and had a couple severe falls and had ongoing back pain which he felt was related to the
falls. During workup of back pain, he was found to have bone lesion with pulmonary nodule noted. After further workup, he was diagnosed with stage III/IV NSCLC. He was started on chemotherapy with carboplatin and paclitaxel on 05/02 and started
radiation 05/05. He was planned for outpatient MRI of the brain as part of ongoing workup and was incidentally found to have acute/subacute right parietal/frontal lobe ischemic infarct. He was referred to ER for evaluation. Patient has not noted any
neurologic/stroke like symptoms and denies any weakness, facial droop, or difficulty speaking. He notes he has had chronic SOB which he feels is likely related to his cancer and also notes some decreased appetite and weight loss, also which he feels
is related to underlying malignancy. With acute CVA, he underwent CTA of head/neck where he was noted to have complete occlusion of the R ICA and 50% stenosis of the L ICA. Echo showed EF 35-40%. Cardiology consulted for evaluation given
cardiomyopathy as well as acute CVA with history of paroxysmal atrial fibrillation (11.3 seconds on prior OP monitor). He continues to feel well at this time and is mostly concerned with restarting his chemotherapy and radiation.
PMH:
Stage III NSCLC
Recently started chemo (Carboplatin and paclitaxel) 05/02/24 and radiation 05/05/2024
CAD
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
PVD
s/p angioplasty and stenting of left common iliac artery and left external iliac artery 01/18/2024
s/p R AKA (s/p non-healing R BKA) 12/2020
Cardiomyopathy, EF 40% by [facility] 12/2021
Paroxysmal atrial fibrillation
Paroxysmal atrial tachycardia
Not chronically anticoagulated due to low burden and h/o GIB
h/o GIB due to gastric ulcer 2020
DM2
COPD
Chronic Anemia
RA
HTN
HLD
Hypothyroidism
Past Medical History
Past Medical History: Other (In HPI)
Past Surgical History: Other (peripheral bypass, peripheral angioplasty and stenting, R AKA, )
Social History
Tobacco: Former Smoker
Alcohol: Daily
Drug: None
Personal: Single
Family History
Family History: Diabetes and Hypertension
Allergies / Home Medications
Allergy/AdvReac Type Severity Reaction Status Date / Time
No Known Allergies Allergy Verified 05/14/24 09:40
�Medication �Instructions �Recorded �Confirmed �Type
acetaminophen 325 mg tablet 650 mg (2 x 325 mg) PO Q4HPRN PRN 01/17/21 05/14/24 Rx
mild pain
bupropion HCl 200 mg tablet,12 hr 200 mg PO DAILY Mental Health 09/08/21 05/14/24 History
sustained-release (Wellbutrin SR)
gabapentin 600 mg tablet 600 mg PO HS Pain 09/08/21 05/14/24 History
ascorbic acid (vitamin C) 500 mg 500 mg PO DAILY Supplement 01/16/23 05/14/24 History
tablet (Vitamin C)
aspirin 81 mg chewable tablet 81 mg PO DAILY Blood clot 01/16/23 05/14/24 History
prevention/tx
clopidogrel 75 mg tablet 75 mg PO DAILY Blood clot 01/16/23 05/14/24 History
prevention/tx
cyanocobalamin (vitamin B-12) 1,000 mcg PO DAILY Supplement 01/16/23 05/14/24 History
1,000 mcg tablet
atorvastatin 20 mg tablet 40 mg PO DAILY High Cholesterol 01/10/24 05/14/24 History
multivitamin 1 tab PO DAILY Supplement 01/10/24 05/14/24 History
metoprolol succinate 25 mg 12.5 mg PO DAILY Blood Pressure 04/18/24 05/14/24 History
tablet,extended release 24 hr
(Toprol XL)
golimumab 12.5 mg/mL intravenous 100 mg IV Q8W rheumatologic 05/14/24 05/14/24 History
solution (Simponi ARIA) condition
levothyroxine 150 mcg tablet 150 mcg PO DAILY Thyroid 05/14/24 05/14/24 History
(Synthroid)
loperamide 2 mg tablet 2 mg PO Q6HPRN PRN diarrhea 05/14/24 05/14/24 History
ondansetron HCl 8 mg tablet 8 mg PO [id number] PRN nausea 05/14/24 05/14/24 History
pantoprazole 40 mg tablet,delayed 40 mg PO DAILY Gastrointestinal 05/14/24 05/14/24 History
release (Protonix) Issue
prednisone 5 mg tablet 5 mg PO DAILYPRN PRN ra 05/14/24 05/14/24 History
inflammation
tramadol 50 mg tablet 50 mg PO TIDPRN PRN moderate pain 05/14/24 05/14/24 History
Review of Systems
-
History Source: Patient
All other systems: Negative unless noted
Physical Exam
Vital Signs
Temp Pulse Resp BP Pulse Ox
98.5 F 90 20 130/75 98
05/14/24 10:33 05/15/24 12:00 05/14/24 18:39 05/15/24 09:08 05/15/24 12:00
Lab Results
05/15/24 07:01
05/15/24 07:01
Physical Exam
General: Well Developed, Well Nourished and No Apparent Distress
HEENT: Normocephalic, Anicteric and Moist Mucous Membranes
Respiratory: Clear and Non Labored Respirations
Cardiac: S1/S2 and Regular Rhythm
Musculoskeletal: No Clubbing, No Cyanosis, No Edema and Other (R AKA)
Skin: Warm and Dry
Neuro: AO x 3 and Nonfocal/Grossly Intact
Psych: Calm
Impression / Plan
-
PCP: Dr. Castellano
Card Hanger: Dr. Aponte
Impression:
Acute/subacute R parietal/frontal infarct on MRI of brain 05/14/24
Cardiomyopathy, EF 35-40% by echo 05/14/24
Carotid artery disease
Total occlusion of R ICA, 50% stenosis L ICA by CTA head/neck 05/14/24
Stage III NSCLC
Recently started chemo (Carboplatin and paclitaxel) 05/02/24 and radiation 05/05/2024
CAD
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
PVD
s/p angioplasty and stenting of left common iliac artery and left external iliac artery 01/18/2024
s/p R AKA
Paroxysmal atrial fibrillation
Paroxysmal atrial tachycardia
Not chronically anticoagulated due to low burden and h/o GIB
h/o GIB due to gastric ulcer 2020
DM2
COPD
Chronic Anemia
RA
HTN
HLD
Hypothyroidism
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 Nonobstructive disease in LAD. EF 40%.
Echo 12/30/2020: EF 50 to 55%, mild concentric LVH, mild basal to mid inferolateral hypokinesis, stage I diastolic dysfunction, trace TR, estimated PAP 40 mmHg
Echo 05/14/2024: EF 35 to 40%, global hypokinesis with regional variability, mild concentric LVH, stage I diastolic dysfunction, aortic sclerosis without stenosis
Plan:
-Presented to ER after he had outpatient MRI which revealed acute/subacute CVA. He is asymptomatic.
-Neurology evaluated and plan is for DAPT for 3 days with aspirin and Plavix. Will then transition to DOAC and aspirin per neurology recommendations.
-Total occlusion of the right ICA noted by CTA of head/neck. Outpatient follow-up with vascular surgery recommended.
-Echo completed 05/14/2024 with EF 35%-40%. Prior echo in 2020 noted EF 50-55%, but at time of cath 12/2021 EF noted to be 40%.
-Medical therapy over the past few years has been limited by hypotension, recently was able to started on Toprol 12.5mg daily.
-BP today improved and will increase Toprol to 12.5mg BID. Will also start lisinopril 2.5mg daily.
-Follow BP and will recheck BMP in AM.
-Follow up echo in 3 months as OP to reassess
-He has history of paroxysmal atrial fibrillation (11.3 seconds on prior OP monitor) and more frequent paroxysmal atrial tachycardia.
-He has not been anticoagulated as an outpatient due to low burden and history of GIB. He has had no recurrent bleeding. Hgb stable at 9.8.
-With acute stroke and CHADSVASc score 6, agree with starting anticoagulation. Will have case management assess the cost of Eliquis 5mg BID and will plan to start after 3 days of DAPT.
-Will arrange 14 day Rhythm Star monitor at time of discharge to follow burden of atrial fibrillation and atrial tachycardia.
-Continue lipitor at increased dose 80mg daily. LDL 67.
-Continue chemotherapy/radiation per oncology.
HPI: Adam is a 68 year old male with PMH of NSCLC, CAD, PVD s/p R AKA, cardiomyopathy, paroxysmal atrial fibrillation, paroxysmal atrial tachycardia, GIB, DM2, COPD, chronic anemia, RA, HTN, HLD, and hypothyroidism. He presented to [facility] after he
was found to have acute/subacute CVA on MRI of brain which was ordered as part of OP cancer workup. He states a few months ago he started to use his prosthesis and had a couple severe falls and had ongoing back pain which he felt was related to the
falls. During workup of back pain, he was found to have bone lesion with pulmonary nodule noted. After further workup, he was diagnosed with stage III/IV NSCLC. He was started on chemotherapy with carboplatin and paclitaxel on 05/02 and started
radiation 05/05. He was planned for outpatient MRI of the brain as part of ongoing workup and was incidentally found to have acute/subacute right parietal/frontal lobe ischemic infarct. He was referred to ER for evaluation. Patient has not noted any
neurologic/stroke like symptoms and denies any weakness, facial droop, or difficulty speaking. He notes he has had chronic SOB which he feels is likely related to his cancer and also notes some decreased appetite and weight loss, also which he feels
is related to underlying malignancy. With acute CVA, he underwent CTA of head/neck where he was noted to have complete occlusion of the R ICA and 50% stenosis of the L ICA. Echo showed EF 35-40%. Cardiology consulted for evaluation given
cardiomyopathy as well as acute CVA with history of paroxysmal atrial fibrillation (11.3 seconds on prior OP monitor). He continues to feel well at this time and is mostly concerned with restarting his chemotherapy and radiation.
Data Reviewed
-
EKG: Tracing Personally Visualized and interpreted
CT Scan: Report Reviewed by me
MRI: Report Reviewed by me
Medical Tests (Nuc Med, Echo etc): Report Reviewed by me
Labs: Labs Reviewed by me
Old Records: Reviewed
[2024-05-15 17:10] LABS: NT-proBNP 5370 pg/ml
[2024-05-15] MEDS: ZESTRIL 2.5 MG PO (17:36)
[2024-05-15] MEDS: LIPITOR 80 MG PO (17:39)
[2024-05-15] MEDS: LOW STRENGTH ASPIRIN 81 MG PO (17:39)
[2024-05-15 17:41] VITALS: BP 115/69
[2024-05-15 18:14] VITALS: BP 128/81
[2024-05-15] MEDS: LOVENOX 40 MG SC (18:20)
[2024-05-15] MEDS: PLAVIX 75 MG PO (18:20)
[2024-05-15 19:40] VITALS: BP 105/64
[2024-05-15] MEDS: NEURONTIN 600 MG PO (22:24)
--- NOTE | 2024-05-15 22:45 | PTCARENOTE ---
Pt reported hx of 'difficulty swallowing but it seemed even more difficult than usual to swallow that pill [half tablet].' Pt passed swallow screening. Pt reports 'this could be a possible side effect of my chemo.' Pt reported 'no difficulty'
swallowing capsules. Pt offered apple sauce for medication administration. 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 No new orders at this time. AM RN will be updated. Plan of care ongoing.
[2024-05-15 23:59] VITALS: BP 101/53
[2024-05-16] VITALS (7 sets, daily range): BP systolic 80–105; BP diastolic 49–58
[2024-05-16] MEDS: SYNTHROID 150 MCG PO (06:42)
[2024-05-16 07:16] LABS: Blood Urea Nitrogen 13 mg/dl (9-20); Carbon Dioxide 29 mmol/L (22-30); Chloride 96 mmol/L (98-107); Estimated Creatinine Clearance 90 ml/min; Glucose 77 mg/dl (70-99); Hematocrit 27.8 % (39.0-52.0); Hemoglobin 9.3 g/dL (13.0-18.0); Mean Corp Hgb Conc. 33.5 g/dL (33.0-37.0); Mean Corpuscular Hgb 33.5 pg (27.0-31.0); Potassium 4.4 mmol/L (3.5-5.1); Red Blood Cell Count 2.78 10^6/uL (4.70-6.10); Red Cell Dist. Width 19.1 % (11.5-14.5); Sodium 132 mmol/L (135-145); White Blood Cell Count 5.9 10^3/uL (4.8-10.8); eGFR > 60.00
--- NOTE | 2024-05-16 08:03 | W.PN.HOSP.TC ---
Addendum entered and electronically signed by Isaak Stone MD 05/16/24 15:19:
Attending Addendum-
I saw and evaluated the patient. I reviewed the resident�s note and agree with findings and plan as documented in the resident�s note. Sub- Had low BP this am due to change in BP meds. Was given NS bolus and resolved. Patient is completely
asymptomatic. Full 12 point ROS reviewed and negative except as documented Exam- vitals reviewed in EMR GEN-NAD heart RRR lungs clear abd soft Ext Right AKA right IJ port site CDI
Plan:
# Acute/Subacute CVA
- MRI 05/14- Foci of increased diffusion-weighted signal and decreased ADC signal within the right posterior frontal and parietal lobes, appearance compatible with regions of acute to subacute infarction no brain mets
- CTA 05/14-
1. Complete occlusion of the right internal carotid artery. Approximately 50% stenosis of the proximal left internal carotid artery.
2. Multifocal severe stenoses of both extradural vertebral arteries as well as the bilateral intradural vertebral arteries as detailed above. Questionable occlusion versus severe stenosis proximal right vertebral artery. Severe stenosis proximal
left vertebral artery.
3. Anterior, middle, and posterior cerebral arteries show no major branch vessel occlusion. There is diffuse narrow caliber of right middle cerebral artery branches related to the ICA occlusion. There is narrowing of both posterior cerebral
arteries.
- cont DAPT increase statin to high intensity
- not a candidate for TNK
- maintain normotension
- start eliquis 05/17, dc plavix and cont asa
- PT OT speech PMnR c/s
- ECHO 05/14-Global hypokinesis with regional
variability. Left ventricular ejection fraction is 35-40%
- dc home f/u neuro as OP
# Complete RICS and 50% LICS
- cont asa and statin
- f/u vascular surg as op
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
- care per onc Dr. Redd
- f/u onc as OP
- s/p chemo on 05/13- carbo/taxol
# Severe PAD
- s/p multiple procedures including right AKA
- cont asa
- f/u vasc surg as OP
# HFrEF
- new dx
- Echo 05/14- ef 35-40%
- cards c/s and appreciate input- decrease Toprol-XL, add low-dose lisinopril. As an outpatient continue to reassess whether patient is a candidate for switching to Entresto, adding Aldactone or adding SGLT2 inhibitor.
# Hyponatremia-
- mild
- repeat BMP as op
# Paroxysmal A fib
- start NOAC/eliquis 05/17
- high risk due to h/o GI bleed
- OP f/u OP
- DC with heart monitor
# COPD
- not in AE
- cont nebs prn
# RA-
- on chronic steroids- continue
- restart simponi
# HTN
- cont toprol XL
# Etoh Abuse
- monitor closely for w/d
- counselled re abstinence
# Hypothyroidism
- cont levothyroxine
# Peripheral Neuropathy
- cont gabapentin
# Severe PCM
# GERD
- cont Protonix
DVT p - lovenox
Code- Full
Dispo DC home today
Time spent coordinating care, review of plan of care with resident, DC planing, transition of care, personally reviewed previous records in EMR, med rec, labs, radiology, d/w nursing, family and cards�- 35 mins
Original Note:
Today's Communication/Plan
-
Discharge patient today
Eliquis 5 mg twice daily starting tomorrow 05/17 . Continue aspirin 81 mg daily
Stop Plavix
Start lisinopril 2.5mg daily
Continue Toprol XL 12.5mg daily
Assessment / Plan
Assessment / Plan
IMPRESSION:
Subacute infarct with occlusion of right ICA
HFrEF
Hyponatremia
Metastatic Lung cancer
Hyponatremia
History of paroxysmal atrial fibrillation
Hypertension
Hyperlipidemia
History of GI bleed
History of PAD s/p right AKA
Rheumatoid arthritis on chronic prednisone use
Hypothyroidism
Anxiety/depression
Assessment and Plan:
Patient's blood pressure decreased to 80/49 and this morning . Suspect due to increase dosage of toporol XL to 12.5 BID and new addition of lisinopril 2.5 mg QD.
Gave patients IV fluids in am . BP improved 99/59. Patient is hemodynamically stable . OK to discharge.
Subacute infarct with occlusion of right ICA
Suspect Embolic stroke
Patient is lying comfortably, oriented, no aphasia, no dysarthria.
Brain MRI negative for hemorrhage
Continue DAPT- 75 mg clopidogrel increase dose of aspirin to 325 mg
Discussed with neurology, plan is to start DOAC after 1 day, until then DAPT. After 1 day DOAC and ASA only. Stop Plavix.
Plan to discharge patient today.
Follow-up with neurology outpatient
HFrEF
New dx
Reduced LVEF 35-40 %
Plan for a 14 day monitor on discharge to assess for atrial arrhythmias per cardiology
Discharge with Toprol XL to 12.5 daily, adding lisinopril 2.5 mg.
Follow-up outpatient to reassess whether the patient is a candidate for switching to Entresto, adding Aldactone or adding SGLT2
Follow-up with cardiology outpatient
Metastatic Lung cancer
Mets to the 6th rib with poorly diff SCC
on going chemotherapy and radiation
Follow-up with hematology/oncology outpatient
Hyponatremia
Euvolemic, moist mucous membrane
Na 132. IV fluids given
Monitor BMP
History of paroxysmal atrial fibrillation
Hold OAC for 3 days
Echo Global hypokinesis with regional variability. Left ventricular ejection fraction is 35-40% by visual assessment. Mild concentric left ventricular hypertrophy
EKG shows RBBB
Peripheral vascular disease s/p right AKA
Starting Eliquis tomorrow. Continue aspirin 81 mg. Stop Plavix.
Follow-up with vascular surgery outpatient
Hypertension
Continue metoprolol succinate 12.5 mg
Hyperlipidemia
Start high intensity statin atorvastatin 80 mg
History of GI bleed
Patient is at a high risk to start OAC
Continue pantoprazole 40 mg
Hypothyroidism
Continue levothyroxine
Rheumatoid arthritis on chronic steroid use
Continue prednisone 5 mg
Hold IV golimumab
Anxiety/depression
Continue Wellbutrin
Full code
DVT prophylaxis- SCD, hold lovenox
Diet- chol lowering
Imaging
Brain MRI
Foci of increased diffusion-weighted signal and decreased ADC signal within the right posterior frontal and parietal lobes, appearance compatible with regions of acute to subacute infarction, most likely subacute.
There is loss of flow void within the visualized superior cervical and petrous portion of the right ICA, suggestive of occlusion, although could possibly be due to slow flow.
No evidence for metastatic disease to the brain
Head/neck CTA
IMPRESSION:
1. No acute intracranial abnormality identified. Findings on MRI of earlier the same date are indistinct on noncontrast CT.
2. Complete occlusion of the right internal carotid artery. Approximately 50% stenosis of the proximal left internal carotid artery.
3. Multifocal severe stenoses of both extradural vertebral arteries as well as the bilateral intradural vertebral arteries as detailed above. Questionable occlusion versus severe stenosis proximal right vertebral artery. Severe stenosis proximal
left vertebral artery.
4. Anterior, middle, and posterior cerebral arteries show no major branch vessel occlusion. There is diffuse narrow caliber of right middle cerebral artery branches related to the ICA occlusion. There is narrowing of both posterior cerebral
arteries.
5. Pleural-based mass lesion left upper chest as seen on previous CT chest examinations. Emphysema.
Echo:
Normal left ventricular chamber size. Global hypokinesis with regional variability. Left ventricular ejection fraction is 35-40% by visual assessment. Mild concentric left ventricular hypertrophy. Stage I diastolic dysfunction suggestive of
abnormal relaxation. Normal right ventricular size and function. Aortic sclerosis without stenosis.
Anticipated Discharge: Today
Subjective/Interval History
-
Date of Service: May 16, 2024
Patient's blood pressure was 80/40 9 in the AM. Gave him IV fluids his blood pressure went up to 99/58. Patient remains asymptomatic.
Objective Data
-
Labs:
Laboratory Results
05/16/24
06:27
WBC 5.9
Hgb 9.3 L
Hct 27.8 L
Plt Count
Sodium 132 L
Potassium 4.4
Chloride 96 L
Carbon Dioxide 29
BUN 13
Creatinine 0.7
Glucose 77
Calcium 8.0 L
Vital Signs:
Vital Signs
Temp Pulse Resp BP Pulse Ox
98.4 F 96 16 105/57 96
05/16/24 03:54 05/16/24 03:54 05/16/24 03:54 05/16/24 03:54 05/16/24 03:54
I&O
05/15/24 05/16/24 05/17/24
06:59 06:59 06:59
Intake Total 240 / 240
Output Total 550 / 550 475 / 475
Balance -310 / -310 -475 / -475
Review of Systems
-
All other systems: Reviewed and negative
Physical Exam
-
General: No Apparent Distress and Comfortable
HEENT: Normocephalic and Atraumatic
Respiratory: Clear to Auscultation
Cardiac: Regular Rhythm and S1/S2
Musculoskeletal: No Edema and Other (R AKA )
Neuro: AO x 3, No Motor Deficits and No Sensory Deficits; Negative Slurred Speech or Facial Droop
Psych: Calm
Data Reviewed
-
Labs: Labs Reviewed by me and Discussed with Physician
[2024-05-16] MEDS: NSS 250 IV (08:20)
[2024-05-16] MEDS: THERAGRAN 1 TABLET PO (08:32)
[2024-05-16] MEDS: PROTONIX 40 MG PO (08:32)
[2024-05-16] MEDS: DELTASONE 5 MG PO (08:32)
[2024-05-16] MEDS: WELLBUTRIN SR (12 hour sustained release) 200 MG PO (08:32)
[2024-05-16] MEDS: LOW STRENGTH ASPIRIN 81 MG PO (08:32)
[2024-05-16] MEDS: PLAVIX 75 MG PO (08:36)
[2024-05-16] MEDS: NSS 500 IV (09:06)
--- NOTE | 2024-05-16 10:33 | CM ---
Eliquis 5 mg BID $47 per [facility].
TT to .
--- NOTE | 2024-05-16 10:38 | W.PN.CARDCBS ---
Addendum entered and electronically signed by Titi Calvert MD 05/16/24 16:28:
I saw and examined the patient.
The Gardening Manager's note was reviewed and I agree with the note.
Comment: Briefly, 68-year-old man presenting for evaluation of stroke after outpatient MRI revealed likely subacute right parietal infarct
Cardiology was asked to evaluate for cardioembolic source of stroke
Transthoracic echocardiogram revealed newly identified cardiomyopathy with reduced LVEF 35-40% for which he is being treated with low-dose Toprol and lisinopril, up titration is limited by hypotension
Telemetry here is unremarkable, no evidence of atrial fibrillation; however reportedly had approximately 10 seconds of atrial fibrillation on an outpatient monitor in the past
Plan for long-term outpatient monitor which we will arrange on discharge
Per neurology plan is for aspirin/Eliquis on discharge
Stable cardiac status, outpatient follow-up has been arranged
Original Note:
Today's Communication / Plan
-
Transition to aspirin and Eliquis 5mg BID starting tomorrow
Reduce Toprol back to 12.5mg daily, continue lisinopril 2.5mg daily
Rhythm Star monitor to be placed today prior to discharge
Follow up arranged.
Impression / Plan
-
PCP: Dr. Castellano
Heavy Mobile Equipment Operator: Dr. Aponte
Impression:
Acute/subacute R parietal/frontal infarct on MRI of brain 05/14/24
Cardiomyopathy, EF 35-40% by echo 05/14/24
Carotid artery disease
Total occlusion of R ICA, 50% stenosis L ICA by CTA head/neck 05/14/24
Stage III NSCLC
Recently started chemo (Carboplatin and paclitaxel) 05/02/24 and radiation 05/05/2024
CAD
EDUCATION TRAINER of circ by cath 01/06/2022
PVD
s/p angioplasty and stenting of left common iliac artery and left external iliac artery 01/18/2024
s/p R AKA
Paroxysmal atrial fibrillation
Paroxysmal atrial tachycardia
Not chronically anticoagulated due to low burden and h/o GIB
h/o GIB due to gastric ulcer 2020
DM2
COPD
Chronic Anemia
RA
HTN
HLD
Hypothyroidism
LHC 01/06/2022: EDUCATION TRAINER of distal circumflex. Nonobstructive disease in LAD. EF 40%.
Echo 12/30/2020: EF 50 to 55%, mild concentric LVH, mild basal to mid inferolateral hypokinesis, stage I diastolic dysfunction, trace TR, estimated PAP 40 mmHg
Echo 05/14/2024: EF 35 to 40%, global hypokinesis with regional variability, mild concentric LVH, stage I diastolic dysfunction, aortic sclerosis without stenosis
Plan:
-Presented to ER after he had outpatient MRI which revealed acute/subacute CVA. He is asymptomatic.
-Seen by neurology who recommended DAPT x 3 days with subsequent transition to Eliquis 5mg BID and aspirin starting tomorrow.
-Total occlusion of the right ICA noted by CTA of head/neck. Outpatient follow-up with vascular surgery recommended.
-Echo completed 05/14/2024 with EF 35%-40%. Prior echo in 2020 noted EF 50-55%, but at time of cath 12/2021 EF noted to be 40%.
-Medical therapy has been limited by hypotension, recently was able to started on Toprol 12.5mg daily.
-Started on lisinopril 2.5mg daily 05/15 and Toprol was increased to 12.5mg BID, however hypotension noted this AM. Pt reports he was asymptomatic with this and had no dizziness/lightheadedness/weakness.
-Will decrease Toprol back to 12.5mg daily, and will continue lisinopril 2.5mg daily.
-Follow up echo in 3 months as OP to reassess EF.
-He has history of paroxysmal atrial fibrillation (11.3 seconds on prior OP monitor) and more frequent paroxysmal atrial tachycardia. Not chronically on AC due to low burden and h/o GIB.
-Will plan to start Eliquis 5mg BID in AM and will continue baby aspirin. No further plavix. Cost of Eliquis per CM $47/month.
-Will place 14 day Rhythm Star monitor today prior to discharge to follow burden of atrial fibrillation and atrial tachycardia.
-Continue lipitor at increased dose 80mg daily. LDL 67.
-Continue chemotherapy/radiation per oncology.
-Ok for discharge from cardiac standpoint. Follow up arranged.
HPI: Adam is a 68 year old male with PMH of NSCLC, CAD, PVD s/p R AKA, cardiomyopathy, paroxysmal atrial fibrillation, paroxysmal atrial tachycardia, GIB, DM2, COPD, chronic anemia, RA, HTN, HLD, and hypothyroidism. He presented to [facility] after he
was found to have acute/subacute CVA on MRI of brain which was ordered as part of OP cancer workup. He states a few months ago he started to use his prosthesis and had a couple severe falls and had ongoing back pain which he felt was related to the
falls. During workup of back pain, he was found to have bone lesion with pulmonary nodule noted. After further workup, he was diagnosed with stage III/IV NSCLC. He was started on chemotherapy with carboplatin and paclitaxel on 05/02 and started
radiation 05/05. He was planned for outpatient MRI of the brain as part of ongoing workup and was incidentally found to have acute/subacute right parietal/frontal lobe ischemic infarct. He was referred to ER for evaluation. Patient has not noted any
neurologic/stroke like symptoms and denies any weakness, facial droop, or difficulty speaking. He notes he has had chronic SOB which he feels is likely related to his cancer and also notes some decreased appetite and weight loss, also which he feels
is related to underlying malignancy. With acute CVA, he underwent CTA of head/neck where he was noted to have complete occlusion of the R ICA and 50% stenosis of the L ICA. Echo showed EF 35-40%. Cardiology consulted for evaluation given
cardiomyopathy as well as acute CVA with history of paroxysmal atrial fibrillation (11.3 seconds on prior OP monitor). He continues to feel well at this time and is mostly concerned with restarting his chemotherapy and radiation.
Progress Note - Heavy Mobile Equipment Operator
Subjective
Date of Service: May 16, 2024
Feeling well this morning. No complaints.
Objective
Labs:
05/16/24 06:27
05/16/24 06:27
Labs
Hgb 9.3 g/dL (13.0-18.0) L 05/16/24 06:27
Hct 27.8 % (39.0-52.0) L 05/16/24 06:27
Plt Count 10^3/uL (130-400) 05/16/24 06:27
PT 14.9 Sec (11.4-14.6) H 05/14/24 10:29
INR 1.17 05/14/24 10:29
APTT 31.6 Sec (23.4-35.0) 05/14/24 10:29
Sodium 132 mmol/L (135-145) L 05/16/24 06:27
Potassium 4.4 mmol/L (3.5-5.1) 05/16/24 06:27
BUN 13 mg/dl (9-20) 05/16/24 06:27
Creatinine 0.7 mg/dL (0.7-1.3) 05/16/24 06:27
Glucose 77 mg/dl (70-99) 05/16/24 06:27
Vital Signs and I&O:
Vital Signs
Temp Pulse Resp BP Pulse Ox
98.1 F 92 20 81/49 100
05/16/24 08:00 05/16/24 08:00 05/16/24 08:00 05/16/24 08:00 05/16/24 08:00
Vital Signs
Temp Pulse Resp BP Pulse Ox
98.1 F 92 20 81/49 100
05/16/24 08:00 05/16/24 08:00 05/16/24 08:00 05/16/24 08:00 05/16/24 08:00
Intake & Output
05/14/24 05/15/24 05/16/24 05/17/24
06:59 06:59 06:59 06:59
Intake Total 240 / 240
Output Total 550 / 550 475 / 475
Balance -310 / -310 -475 / -475
Physical Exam
Physical Exam
GEN: No distress, awake, alert, oriented x3
HEENT: supple, anicteric, mmm
LUNGS: CTA b/l, no wheezes/rales
CV: Reg, S1/S2, no murmur
EXT: No clubbing, cyanosis, or edema s/p R AKA
NEURO: Gross non-focal
SKIN: Warm, dry, no rash
--- NOTE | 2024-05-16 12:01 | CM ---
Patient seen bedside.
IA completed.
Patient lives alone in 4th floor apartment with elevator access.
Patient with RLE prosthesis.
Patient has WC, walker, cane.
Patient can drive and drove here.
Patient currently undergoing chemo at [facility] and XRT at [place] due to machine problems here.
Patient current with [facility] and would like to resume.
Referral placed with [facility] for RN/PT/OT/SW and STRAIGHT CUTTER.
Patient inquired about private nursing and inability to afford, recourses for the HUB/[facility] given to patient.
Patient also inquired about transportation, printed recourses and website for [employer] provided to patient.
Eliquis Coupon provided for patient.
IMM reviewed and signed.
PCP; Dr Castellano
Pharmacy: [facility]
Plan: home with [facility], resources provided.
[2024-05-16] MEDS: ZESTRIL PO (12:22)
[2024-05-16] MEDS: TOPROL XL PO (12:23)
--- NOTE | 2024-05-16 13:47 | VNURNOTE ---
Chart reviewed, spoke with patient over the phone, he is current with [facility] and would like to resume services. [facility] aware, Resumption referral in [facility].
--- NOTE | 2024-05-16 17:43 | W.DCSUMMARY ---
Addendum entered and electronically signed by Isaak Stone MD 05/16/24 21:49:
Read, reviewed, and agree. See same day progress note for additional details.
Sumeet Stone MD
Original Note:
Documented by User: Gwendolyn Narvaez MD, Resident 05/16/24 18:13
Discharge Summary
Discharge Data
Date of Admission: 05/14/24
Date of Discharge: 05/16/24
-
Pending Results: No
Hospital Course
Discharging Physician : Dr Gwendolyn Narvaez, Dr Isaak Stone
Disposition : Home
Primary care physician : Dr Gunnar Castellano
Principal Discharge diagnosis :
Subacute infarct with occlusion of right ICA
HFrEF
Hyponatremia
Metastatic Lung cancer
Hyponatremia
History of paroxysmal atrial fibrillation
Chronic Discharge diagnosis :
Hypertension
Hyperlipidemia
History of GI bleed
History of PAD s/p right AKA
Rheumatoid arthritis on chronic prednisone use
Hypothyroidism
Anxiety/depression
Hospital Course : Adam was scheduled to get his outpatient MRI on 05/14. Patient has a history of metastatic lung cancer for which he is getting treated with chemotherapy and radiation. He was brought over to the ED with findings of subacute
infarct right parietal and frontal lobe as well as occlusion of right ICA. On physical examination no aphasia, dysarthria, lower extremity weakness, headaches, visual changes. Neurology was consulted and patient was started on 325 mg of aspirin
and [address] angiography of the head and neck showed complete occlusion of the right ICA and 50% occlusion of the left ICA. Patient was not a candidate for TNK. Cardiology was consulted as echocardiogram showed reduced ejection
fraction 35 to 40% which changed from his previous echocardiogram. Patient was started on Toprol 12.5 mg twice daily and new addition of lisinopril 2.5 mg daily. There was a discussion about initiating DOAC. Neurology, hematology , vascular
surgery were reached out to for initiating DOAC. Agreed on starting DOAC after 3 days of admission with continuation of aspirin and to stop Plavix.
On the day of discharge, patient was hypotensive with blood pressure of 88/49, started patient on IV fluids , blood pressure increased to 99/58. Metoprolol was decreased to 12.5mg once a day. Patient was hemodynamically stable. We discharged the
patient on a monitor to assess for atrial arrhythmias for 14 days per cardiology. To start Eliquis 5 mg twice daily with aspirin only from 05/17/2024. Stop Plavix. Patient was advised to continue metoprolol and lisinopril.
All other home medications were continued.
Important imaging findings :
Brain MRI
Foci of increased diffusion-weighted signal and decreased ADC signal within the right posterior frontal and parietal lobes, appearance compatible with regions of acute to subacute infarction, most likely subacute.
There is loss of flow void within the visualized superior cervical and petrous portion of the right ICA, suggestive of occlusion, although could possibly be due to slow flow.
No evidence for metastatic disease to the brain
Head/neck CTA
IMPRESSION:
1. No acute intracranial abnormality identified. Findings on MRI of earlier the same date are indistinct on noncontrast CT.
2. Complete occlusion of the right internal carotid artery. Approximately 50% stenosis of the proximal left internal carotid artery.
3. Multifocal severe stenoses of both extradural vertebral arteries as well as the bilateral intradural vertebral arteries as detailed above. Questionable occlusion versus severe stenosis proximal right vertebral artery. Severe stenosis proximal
left vertebral artery.
4. Anterior, middle, and posterior cerebral arteries show no major branch vessel occlusion. There is diffuse narrow caliber of right middle cerebral artery branches related to the ICA occlusion. There is narrowing of both posterior cerebral
arteries.
5. Pleural-based mass lesion left upper chest as seen on previous CT chest examinations. Emphysema.
Echo:
Normal left ventricular chamber size. Global hypokinesis with regional variability. Left ventricular ejection fraction is 35-40% by visual assessment. Mild concentric left ventricular hypertrophy. Stage I diastolic dysfunction suggestive of
abnormal relaxation. Normal right ventricular size and function. Aortic sclerosis without stenosis.
Procedure findings : none
Discharge Plan
-
Patient Disposition: Home (Routine Discharge)
Discharge Diagnosis/Procedures: Subacute/acute CVA
Right and left ICA occlusion
Heart failure with reduced ejection fraction
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
Severe PAD
Hyponatremia
Proximal atrial fibrillation
Hypertension
Condition: Good
Diet: Low Cholesterol
Activity: No restrictions
Driving Restrictions: As prior to admission
Bathing Restrictions: None
Referrals:
Wesly Aponte MD [Active] - 06/17/24 2:00 pm (You have a follow up visit with Dr. Aponte at the [place] office. Please call with questions.)
Fay Redd DO [Active] - in one to two weeks (to start anticoagulation )
Sandip Thornton MD [Active] - in one to two weeks
Gunnar Castellano MD [Family Provider] - in less than 1 week
Radha Salguero DO [Active] - in one month
Additional Discharge Medication Instructions: Medication disposition :
Start taking ELIQUIS 5 mg twice daily from tomorrow 05/17/2024. You will continue taking ASPIRIN 81 mg daily. STOP taking PLAVIX from tomorrow, 05/17 2024.
You will be taking Eliquis and only aspirin from tomorrow. Patient will be discharged on 14-day monitor to assess arrhythmias. Please follow-up with cardiology in 1 month.
Follow-up with outpatient Dr. Redd hematology oncology
Follow-up with outpatient vascular surgery Dr. Thornton
Follow-up outpatient with neurology, Dr Salguero, in 1 month.
Eliquis take one tablet to be taken twice a day- Start medication on 05/17/2024
ASPIRIN 81 mg - Take one table to be taken once a day
Lisinopril 2.5 mg 1 tablet to be taken once a day
Toprol XL 12.5 mg 1 tablet to be taken once a day
Stop Plavix on 05/17/24
Prescriptions:
New
lisinopril 2.5 mg Tablet
2.5 mg PO DAILY Qty: 30 0RF
Eliquis 5 mg tablet
5 mg PO BID 30 Days Qty: 60 0RF
Rx Instructions:
Take one tablet starting from tomorrow 05/17/24.
Continued
gabapentin 600 MG tablet
600 mg PO HS
bupropion HCl [Wellbutrin SR] 200 MG tablet sustained-release 12 hr
200 mg PO DAILY
cyanocobalamin (vitamin B-12) 1,000 MCG tablet
1,000 mcg PO DAILY
ascorbic acid (vitamin C) [Vitamin C] 500 MG tablet
500 mg PO DAILY
aspirin 81 MG tablet,chewable
81 mg PO DAILY
multivitamin Tablet
1 tab PO DAILY
atorvastatin 20 mg Tablet
40 mg PO DAILY
metoprolol succinate [Toprol XL] 25 mg Tablet Extended Release 24 Hr
12.5 mg PO DAILY
ondansetron HCl 8 mg Tablet
8 mg PO [id number] PRN (Reason: nausea)
prednisone 5 mg Tablet
5 mg PO DAILYPRN PRN (Reason: ra inflammation)
loperamide 2 mg Tablet
2 mg PO Q6HPRN PRN (Reason: diarrhea)
tramadol 50 mg Tablet
50 mg PO TIDPRN PRN (Reason: moderate pain)
pantoprazole [Protonix] 40 mg Tablet,Delayed Release (Dr/Ec)
40 mg PO DAILY
levothyroxine [Synthroid] 150 mcg Tablet
150 mcg PO DAILY
Simponi ARIA 12.5 mg/mL Solution
100 mg IV Q8W
acetaminophen 325 MG tablet
650 mg PO Q4HPRN PRN (Reason: mild pain) 0RF
Discontinued
clopidogrel 75 MG tablet
75 mg PO DAILY
Discharge Orders:
Discharge Patient (As Directed); Ordered 05/16/24
Ordered By: Gwendolyn Narvaez
Discharge Date and Time
Discharge Date/Time: 05/16/24 15:37
Print Language: GERMAN

Documented by User: Isaak Stone MD 05/16/24 21:45
Discharge Summary
Discharge Data
Date of Admission: 05/14/24
Date of Discharge: 05/16/24
Discharge Plan
-
Patient Disposition: Home (Routine Discharge)
Discharge Diagnosis/Procedures: Subacute/acute CVA
Right and left ICA occlusion
Heart failure with reduced ejection fraction
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
Severe PAD
Hyponatremia
Proximal atrial fibrillation
Hypertension
Condition: Good
Diet: Low Cholesterol
Activity: No restrictions
Driving Restrictions: As prior to admission
Bathing Restrictions: None
Referrals:
Wesly Aponte MD [Active] - 06/17/24 2:00 pm (You have a follow up visit with Dr. Aponte at the [place] office. Please call with questions.)
Fay Redd DO [Active] - in one to two weeks (to start anticoagulation )
Sandip Thornton MD [Active] - in one to two weeks
Gunnar Castellano MD [Family Provider] - in less than 1 week
Radha Salguero DO [Active] - in one month
Additional Discharge Medication Instructions: Medication disposition :
Start taking ELIQUIS 5 mg twice daily from tomorrow 05/17/2024. You will continue taking ASPIRIN 81 mg daily. STOP taking PLAVIX from tomorrow, 05/17 2024.
You will be taking Eliquis and only aspirin from tomorrow. Patient will be discharged on 14-day monitor to assess arrhythmias. Please follow-up with cardiology in 1 month.
Follow-up with outpatient Dr. Redd hematology oncology
Follow-up with outpatient vascular surgery Dr. Thornton
Follow-up outpatient with neurology, Dr Salguero, in 1 month.
Eliquis take one tablet to be taken twice a day- Start medication on 05/17/2024
ASPIRIN 81 mg - Take one table to be taken once a day
Lisinopril 2.5 mg 1 tablet to be taken once a day
Toprol XL 12.5 mg 1 tablet to be taken once a day
Stop Plavix on 05/17/24
Prescriptions:
New
lisinopril 2.5 mg Tablet
2.5 mg PO DAILY Qty: 30 0RF
Eliquis 5 mg tablet
5 mg PO BID 30 Days Qty: 60 0RF
Rx Instructions:
Take one tablet starting from tomorrow 05/17/24.
Continued
gabapentin 600 MG tablet
600 mg PO HS
bupropion HCl [Wellbutrin SR] 200 MG tablet sustained-release 12 hr
200 mg PO DAILY
cyanocobalamin (vitamin B-12) 1,000 MCG tablet
1,000 mcg PO DAILY
ascorbic acid (vitamin C) [Vitamin C] 500 MG tablet
500 mg PO DAILY
aspirin 81 MG tablet,chewable
81 mg PO DAILY
multivitamin Tablet
1 tab PO DAILY
atorvastatin 20 mg Tablet
40 mg PO DAILY
metoprolol succinate [Toprol XL] 25 mg Tablet Extended Release 24 Hr
12.5 mg PO DAILY
ondansetron HCl 8 mg Tablet
8 mg PO [id number] PRN (Reason: nausea)
prednisone 5 mg Tablet
5 mg PO DAILYPRN PRN (Reason: ra inflammation)
loperamide 2 mg Tablet
2 mg PO Q6HPRN PRN (Reason: diarrhea)
tramadol 50 mg Tablet
50 mg PO TIDPRN PRN (Reason: moderate pain)
pantoprazole [Protonix] 40 mg Tablet,Delayed Release (Dr/Ec)
40 mg PO DAILY
levothyroxine [Synthroid] 150 mcg Tablet
150 mcg PO DAILY
Simponi ARIA 12.5 mg/mL Solution
100 mg IV Q8W
acetaminophen 325 MG tablet
650 mg PO Q4HPRN PRN (Reason: mild pain) 0RF
Discontinued
clopidogrel 75 MG tablet
75 mg PO DAILY
Discharge Orders:
Discharge Patient (As Directed); Ordered 05/16/24
Ordered By: Gwendolyn Narvaez
Discharge Date and Time
Discharge Date/Time: 05/16/24 15:37
Print Language: GERMAN
== END 2024-05-16 15:37 | disposition home health service (06) | DRG 64 ==
LOC: 4 WEST ACU 14:22
PROVIDERS: Nurse Practitioner Gerontology; Physician Assistant; Student in an Organized Health Care Education/Training Program; ADMITTING PHYSICIAN Family Medicine; CONSULT PHYSICIAN Internal Medicine Cardiovascular Disease; CONSULT PHYSICIAN Psychiatry & Neurology Neurology; EMERGENCY PHYSICIAN Emergency Medicine; FAMILY PHYSICIAN Internal Medicine
DX: I63.40 Cerebral infarction due to embolism of unspecified cerebral artery (principal); E43 Unspecified severe protein-calorie malnutrition; C34.32 Malignant neoplasm of lower lobe, left bronchus or lung; I50.20 Unspecified systolic (congestive) heart failure; E87.1 Hypo-osmolality and hyponatremia; Z68.1 Body mass index [BMI] 19.9 or less, adult; I42.9 Cardiomyopathy, unspecified; I47.19 Other supraventricular tachycardia; E11.51 Type 2 diabetes mellitus with diabetic peripheral angiopathy without gangrene; E11.40 Type 2 diabetes mellitus with diabetic neuropathy, unspecified; E03.9 Hypothyroidism, unspecified; E78.00 Pure hypercholesterolemia, unspecified; F41.9 Anxiety disorder, unspecified; M06.9 Rheumatoid arthritis, unspecified; F10.10 Alcohol abuse, uncomplicated; K21.9 Gastro-esophageal reflux disease without esophagitis; I48.0 Paroxysmal atrial fibrillation; I11.0 Hypertensive heart disease with heart failure; R13.10 Dysphagia, unspecified; R63.0 Anorexia; F32.A Depression, unspecified; J43.9 Emphysema, unspecified; I25.10 Atherosclerotic heart disease of native coronary artery without angina pectoris; D64.9 Anemia, unspecified; I95.9 Hypotension, unspecified; M54.9 Dorsalgia, unspecified; R06.09 Other forms of dyspnea; Z89.611 Acquired absence of right leg above knee; Z79.02 Long term (current) use of antithrombotics/antiplatelets; Z79.82 Long term (current) use of aspirin; Z87.891 Personal history of nicotine dependence; Z87.19 Personal history of other diseases of the digestive system; Z92.3 Personal history of irradiation; Z92.21 Personal history of antineoplastic chemotherapy; Z79.52 Long term (current) use of systemic steroids; Z79.890 Hormone replacement therapy
CPT/HCPCS: 70496; 70498; 70553; 80048; 80053; 80061; 83880; 85025; 85027; 85610; 85730; 93005; 93306; 93356; 99284; A9575; Q9967

== ENCOUNTER → 2024-06-11 12:36 | Outpatient (REF) | payer MEDICARE, SELFPAY | LOC: RAD 12:36 | PROVIDERS: ATTENDING PHYSICIAN Registered Nurse; FAMILY PHYSICIAN Internal Medicine | DX: I77.9 Disorder of arteries and arterioles, unspecified (principal) | CPT/HCPCS: 76770; 93922; 93925 ==

== ENCOUNTER → 2024-06-25 15:32 | Outpatient (REF) | payer MEDICARE, SELFPAY ==
[2024-06-25 11:33] LABS: % Basophils 0.5 % (0-2); % Immature Granulocytes 1.5 % (0-0.5); % Lymphocytes 4.9 % (20.5-51.1); % Monocytes 11.7 % (1.7-9.3); % Neutrophils 81.4 % (42.2-75.2); Absolute Immature Granulocytes 0.1 10^3/uL (0-0.05); Absolute Lymphocytes 0.2 10^3/uL (1.2-3.4); Absolute Monocytes 0.5 10^3/uL (0.1-0.6); Absolute Neutrophils 3.3 10^3/uL (1.4-6.5); Hematocrit 24.3 % (39.0-52.0); Hemoglobin 8.2 g/dL (13.0-18.0); Mean Corp Hgb Conc. 33.7 g/dL (33.0-37.0); Mean Corpuscular Hgb 32.8 pg (27.0-31.0); Mean Corpuscular Volume 97.2 fL (80.0-94.0); Mean Platelet Volume 10.9 fL (7.4-10.4); Platelet Count 59 10^3/uL (130-400); Red Cell Dist. Width 18.5 % (11.5-14.5); White Blood Cell Count 4.1 10^3/uL (4.8-10.8)
[2024-06-25 12:08] LABS: ALT (SGPT) < 10 U/L (0-50); AST (SGOT) 24 U/L (17-59); Albumin 2.5 g/dl (3.5-5.0); Alkaline Phosphatase 104 U/L (38-126); Blood Urea Nitrogen 10 mg/dl (9-20); Calcium 6.3 mg/dl (8.4-10.2); Carbon Dioxide 25 mmol/L (22-30); Chloride 98 mmol/L (98-107); Glucose 94 mg/dl (70-99); Sodium 132 mmol/L (135-145); Total Bilirubin 0.7 mg/dl (0.2-1.3); Total Protein 5.4 g/dl (6.3-8.2); eGFR > 60.00
[2024-06-25 13:10] LABS: Magnesium 0.7 mg/dl (1.6-2.3)
== END ==
LOC: OIDL 15:32
PROVIDERS: ATTENDING PHYSICIAN Internal Medicine Hematology & Oncology
DX: D50.0 Iron deficiency anemia secondary to blood loss (chronic) (principal); D63.8 Anemia in other chronic diseases classified elsewhere; M06.9 Rheumatoid arthritis, unspecified; C34.92 Malignant neoplasm of unspecified part of left bronchus or lung
CPT/HCPCS: 80053; 83735; 85025

== ENCOUNTER → 2024-07-02 15:18 | Outpatient (REF) | payer MEDICARE, SELFPAY ==
[2024-07-02 14:42] LABS: % Basophils 0.7 % (0-2); % Eosinophils 0.4 % (0-6); % Immature Granulocytes 3.4 % (0-0.5); % Lymphocytes 4.6 % (20.5-51.1); % Monocytes 8.7 % (1.7-9.3); % Neutrophils 82.2 % (42.2-75.2); Absolute Basophils 0.1 10^3/uL (0-0.2); Absolute Immature Granulocytes 0.3 10^3/uL (0-0.05); Absolute Lymphocytes 0.4 10^3/uL (1.2-3.4); Absolute Monocytes 0.7 10^3/uL (0.1-0.6); Absolute Neutrophils 6.9 10^3/uL (1.4-6.5); Hematocrit 24.2 % (39.0-52.0); Mean Corp Hgb Conc. 33.1 g/dL (33.0-37.0); Mean Corpuscular Hgb 33.1 pg (27.0-31.0); Platelet Count 68 10^3/uL (130-400); Red Blood Cell Count 2.42 10^6/uL (4.70-6.10); Red Cell Dist. Width 19.5 % (11.5-14.5); White Blood Cell Count 8.4 10^3/uL (4.8-10.8)
[2024-07-02 15:26] LABS: ALT (SGPT) < 10 U/L (0-50); AST (SGOT) 22 U/L (17-59); Albumin 2.3 g/dl (3.5-5.0); Alkaline Phosphatase 121 U/L (38-126); Blood Urea Nitrogen 11 mg/dl (9-20); Calcium 6.7 mg/dl (8.4-10.2); Carbon Dioxide 28 mmol/L (22-30); Chloride 99 mmol/L (98-107); Glucose 83 mg/dl (70-99); Magnesium 1.1 mg/dl (1.6-2.3); Potassium 3.2 mmol/L (3.5-5.1); Sodium 134 mmol/L (135-145); Total Bilirubin 0.7 mg/dl (0.2-1.3); Total Protein 5.3 g/dl (6.3-8.2); eGFR > 60.00
== END ==
LOC: OIDL 15:18
PROVIDERS: ATTENDING PHYSICIAN Internal Medicine Hematology & Oncology
DX: D50.0 Iron deficiency anemia secondary to blood loss (chronic) (principal); D63.8 Anemia in other chronic diseases classified elsewhere; M06.9 Rheumatoid arthritis, unspecified; C34.92 Malignant neoplasm of unspecified part of left bronchus or lung
CPT/HCPCS: 80053; 83735; 85025

== ENCOUNTER 2024-07-22 12:26 | Inpatient (IN) | payer MEDICARE, SELFPAY ==
[2024-07-22] VITALS (14 sets, daily range): BP systolic 111–125; BP diastolic 65–80; BMI 15.5
--- NOTE | 2024-07-22 10:49 | ED.GENMED ---
History of Present Illness
General
Chief Complaint: Dizziness
Source: patient
Exam Limitations: none
Time Seen by Provider: 07/22/24 10:15
Nursing documentation reviewed up to this point in time: agreed with
History of Present Illness
History of Present Illness:
PT IS A 68 Y/O M with h/o metastatic lung ca, PAF on eliquis, R ica occlusion
HFrEF
here with fatigue, sob, vomiting an ddiarrhea x 3 weeks
pt just completed weeks of chemo and radiation fo rhis metastatic L lung ca
he is followed by dr. maradiaga
pt started having nauesa/vomiting/diarrhea after completing the therpay
he feels worse now than he did while on cheom
he says he has a few episodes of diarrhea a day that is thin and watery and clear and not black but that is tapering down
he has dry heaving or vomiting every other day
pt has not had any ab dominal pain
he spoke with his oncologist who thought he should come get checked but he waited a day
his daughter thinks he needs to be somewhere where he can get more care; he lives alone
pt has not had any chest pain, recent falls, syncope, fever
he does have chronic lower back pain from a fall a fe wmonths ago
Past History
Past History
ED Past Medical History: Hypercholesterolemia, Hypothyroidism, Psychiatric (anxiety, depressionj), Other (PVD) and Other (RA,); Negative NIDDM
ED Past Surgical History: Orthopedic (AKA right)
Social History
Tobacco: Former smoker (quit x 1 yr)
Alcohol: Daily (1-2 glasses of wine)
Drug: None
Personal: Single
Living: with family
Employment: Not employed
Family History
Family History: Other (Noncontributory)
Review of Systems
Review of Systems
Allergies reviewed?: Yes
All Other Systems: Not applicable
Phy Exam
Physical Exam
Physical Exam:
GENERAL: Alert , in no apparent distress
EYE: pupils equal and reactive
NECK: Supple
ENT: o/p clr, mmm.
CARDIAC: Regular rate and rhythm .
LUNGS: Clear breath sounds bilaterally, no acute respiratory distress, no wheezes/rales/rhonchi
ABDOMEN: Soft, without focal tenderness, no r/g, no cvat, normal bowel sounds
NEUROLOGICAL: Alert and oriented, no focal neuro deficits
SKIN: Warm and dry, skin intact.
MUSCULOSKELETAL: No edema, well perfused. neg suly's sign
PSYCH: Normal and appropriate interaction.
Course
Orders/Labs/Results
Orders:
Orders
07/22/24 10:10
EKG [Electrocardiogram (*1)] Urgent
Reason for Study: Fatigue / Weakness
07/22/24 10:11
EKG- Treatment ONCE
07/22/24 10:31
Type+Screen Urgent
Complete Blood Count/With Diff Urgent
Comprehensive Metabolic Panel Urgent
Glycohemoglobin (HgbA1c) Urgent
Lipase Urgent
Magnesium Urgent
07/22/24 10:43
0.9% Sodium Chloride 500 ml [Nss] 500 ml IV BOLUS
Ondansetron Injectable [Zofran] 4 mg IV NOW STA
07/22/24 10:54
NT-proBNP Urgent
07/22/24 10:57
* Blood Bank Products Urgent
Blood Bank Products: *Packed RBC Leuko(PRBC's)
Quantity: 2
Transfuse Today: Yes
Reason: Anemia
07/22/24 10:58
CR Chest - 2 Views Urgent
Comment:
Reason For Exam: sob, anemia, eval chf
07/22/24 11:42
ONCOLOGY CONSULT Routine
Consulting Provider: Caro Burris
Was physician already notified: Yes
Prochlorperazine [Compazine] 10 mg IV NOW STA
07/22/24 11:43
Admit/Transfer Patient As Directed
Co-Sign Provider:
Level of Care: Inpatient admission
Assign to:: Telemetry
Physician / Group: bettie ny
Diagnosis: anemia, dehydration, vomiting, lung cancer
Reason for Telemetry: Medication for Arrhythmia
Date to Stop Telemetry: 07/24/24
Time to Stop Telemetry: 11:00
Reason for Hospitalization: anemia, dehydration, vomiting, lung cancer
Expected length of stay greater than two midnights?: Yes
ELOS- Estimated Length of Stay in days: 2
I certify the patient meets the requirements for IP care: Yes
07/22/24 11:44
PRN Pain Medication Management As Directed
May give lesser potent ordered pain med per pt: Yes
preference::
Protocol:: Medication orders for pain may be administered in a
manner that supports deferring to patient preference
when the pt is:
- Requesting an ordered lesser potent pain medication.
Least to most potent pain medications are defined
as: acetaminophen < NSAID < tramadol < opioids
(morphine, oxycodone, hydromorphone).
- Requesting a lesser dose of the same medication IF
ORDERED.
- Requesting a less intrusive route of administration
if both routes are prescribed by the provider (PO <
IV).
07/22/24 11:47
Code Status As Directed
Resuscitation Status: Full Code
07/22/24 11:52
Magnesium Sulfate 2 Gram/50 ml [Magnesium Sulfate] 2 gram in 50 ml IV NOW
07/22/24 11:54
Add On- LAB Routine
Tests Added?: HgbA1C
07/24/24 11:00
DC Protocol for Telemetry ONCE
Abnormal Lab Results
07/22/24
10:31
WBC 14.7 H 10^3/uL
(4.8-10.8)
RBC 1.78 L 10^6/uL
(4.70-6.10)
Hgb 5.9 L* g/dL
(13.0-18.0)
Hct 17.5 L* %
(39.0-52.0)
MCV 98.3 H fL
(80.0-94.0)
MCH 33.1 H pg
(27.0-31.0)
RDW 21.6 H %
(11.5-14.5)
Plt Count 44 L 10^3/uL
(130-400)
MPV 12.0 H fL
(7.4-10.4)
Abs Immat Gran (auto) 0.7 H 10^3/uL
(0-0.05)
Absolute Neuts (auto) 12.7 H 10^3/uL
(1.4-6.5)
Absolute Lymphs (auto) 0.3 L 10^3/uL
(1.2-3.4)
Absolute Monos (auto) 0.9 H 10^3/uL
(0.1-0.6)
Immature Gran % 4.7 H %
(0-0.5)
Neutrophils % 86.5 H %
(42.2-75.2)
Lymphocytes % 2.1 L %
(20.5-51.1)
Sodium 130 L mmol/L
(135-145)
Chloride 97 L mmol/L
(98-107)
Calcium 7.4 L mg/dl
(8.4-10.2)
Magnesium 1.5 L mg/dl
(1.6-2.3)
Alkaline Phosphatase 148 H U/L
(38-126)
Total Protein 5.3 L g/dl
(6.3-8.2)
Albumin 2.1 L g/dl
(3.5-5.0)
Crossmatch IS Only See Detail
07/22/24 10:31
07/22/24 10:31
Vital Signs
Initial and Last Documented VS:
Initial Vital Signs
Temp Pulse Resp BP Pulse Ox
98.2 F 121 18 119/78 100
07/22/24 10:05 07/22/24 10:05 07/22/24 10:05 07/22/24 10:05 07/22/24 10:05
Last Documented Vital Signs
Temp Pulse Resp BP Pulse Ox
98.2 F 103 18 117/80 96
07/22/24 12:16 07/22/24 12:19 07/22/24 12:19 07/22/24 12:19 07/22/24 11:30
MDM/Problems Addressed
Differential Diagnosis Includes:
SYMMPTOMATIC ANEMA, GI BLEED, DECONDITIONING, ELECTROLYTE DISTURBANCE
MDM/Problems Addressed:
roseann zamora 68 y/o M metastatic lung ca completed chemo/radiation 3 weeks ago, very thin, deconditioned, PAF on eliquis, h/o anemia
here with fatigue, nauesa, vomiting, diarrhea for 3 weeks, fluctuating episodes, maybe every other day or once a day, not eating; dyspneic on exertion; no chest pain, no edema
hf with pEF
cachectic, dry appearing, nontender abdomen, heme neg stool,
hg 5.9;
consented for blood
admit
*Critical Care Note
Total Time (30-74mins, 75-104mins- exclusive of procedures): Not Applicable
ED Attending Note
-
Portions of this chart may have been created with voice recognition software.� Occasional wrong word or��sound alike� substitutions may have occurred due to the inherent limitations of voice recognition software.
Discharge Plan
Departure
Patient Disposition: Admit
Date of Disposition: 07/22/24
Time of Disposition: 10:58
Admit to: Telemetry
Presentation/result/management discussed w/ accepting MD/DO: Hospitalist
Condition: Fair
Discharge Problem:
Symptomatic anemia
Interventions
Interventions:
*Risk Screen - Suicide Last Done: 07/22/24 10:05
*General Assessment Last Done: 07/22/24 10:05
*Neglect/Abuse Screening Last Done: 07/22/24 10:05
ED- Neurological Assessment Last Done: 07/22/24 12:24
[2024-07-22 10:52] LABS: % Basophils 0.2 % (0-2); % Eosinophils 0.1 % (0-6); % Immature Granulocytes 4.7 % (0-0.5); % Lymphocytes 2.1 % (20.5-51.1); % Monocytes 6.4 % (1.7-9.3); % Neutrophils 86.5 % (42.2-75.2); Absolute Immature Granulocytes 0.7 10^3/uL (0-0.05); Absolute Lymphocytes 0.3 10^3/uL (1.2-3.4); Absolute Monocytes 0.9 10^3/uL (0.1-0.6); Absolute Neutrophils 12.7 10^3/uL (1.4-6.5); Hematocrit 17.5 % (39.0-52.0); Hemoglobin 5.9 g/dL (13.0-18.0); Mean Corp Hgb Conc. 33.7 g/dL (33.0-37.0); Mean Corpuscular Hgb 33.1 pg (27.0-31.0); Mean Corpuscular Volume 98.3 fL (80.0-94.0); Nucleated Red Blood Cells % 1.2 % (-); Platelet Count 44 10^3/uL (130-400); Red Blood Cell Count 1.78 10^6/uL (4.70-6.10); Red Cell Dist. Width 21.6 % (11.5-14.5); White Blood Cell Count 14.7 10^3/uL (4.8-10.8)
[2024-07-22] MEDS: NSS 500 IV (10:54)
[2024-07-22] MEDS: ZOFRAN 4 MG IV (10:56)
--- NOTE | 2024-07-22 11:06 | PHANOTE ---
med rec note- patient does not know his medication and is not willing to go over them, patient also stated he lives alone and has not taking anything for weeks
[2024-07-22 11:13] LABS: ALT (SGPT) 12 U/L (0-50); AST (SGOT) 26 U/L (17-59); Albumin 2.1 g/dl (3.5-5.0); Alkaline Phosphatase 148 U/L (38-126); Blood Urea Nitrogen 18 mg/dl (9-20); Calcium 7.4 mg/dl (8.4-10.2); Carbon Dioxide 22 mmol/L (22-30); Chloride 97 mmol/L (98-107); Glucose 84 mg/dl (70-99); Lipase 297 U/L (23-300); Magnesium 1.5 mg/dl (1.6-2.3); Potassium 3.8 mmol/L (3.5-5.1); Sodium 130 mmol/L (135-145); Total Bilirubin 1.2 mg/dl (0.2-1.3); Total Protein 5.3 g/dl (6.3-8.2); eGFR > 60.00
[2024-07-22 11:25] LABS: NT-proBNP 9670 pg/ml
[2024-07-22] MEDS: COMPAZINE 10 MG IV (12:06)
--- NOTE | 2024-07-22 12:30 | HPS.HSE ---
Family Physician
-
Family Physician: SANTANA Hernandez
Chief Complaint
-
Fatigue, SOB
History of Present Illness
68-year-old male with a past medical history of metastatic lung cancer status post chemo and radiation, paroxysmal atrial fibrillation on Eliquis, diabetes, rheumatoid arthritis, anemia, COPD, hypertension, hyperlipidemia, and hypothyroidism
presents with fatigue and shortness of breath for 2-3 weeks. Patient states he finished his chemo and radiation treatments 3 weeks ago. About a week afterwards, he started having nausea, vomiting, diarrhea, and poor oral intake. Last loose stool
was 2-3 days ago. No abdominal pain. No chest pain, no shortness of breath.
Medical History
Past Medical History
Past Medical History: Reports Other
Additional Past Medical History:
Stage III NSCLC
Paroxysmal atrial fibrillation
Paroxysmal atrial tachycardia
Not chronically anticoagulated due to low burden and h/o GIB
h/o GIB due to gastric ulcer 2020
DM2
COPD
Chronic Anemia
RA
HTN
HLD
Hypothyroidism
Past Surgical History: Reports Other (Peripheral bypass, peripheral angioplasty and stenting, R AKA)
Social History
Tobacco: Former Smoker
Alcohol: Occasional
Drug: None
Living: Alone
Family History
Family History: Not pertinent
Allergies / Home Medications
Allergies reflects when Allergies were last updated in [facility].
Home Medications with original date entered in [facility]
Allergy/Medication List:
Allergies
Allergy/AdvReac Type Severity Reaction Status Date / Time
No Known Allergies Allergy Verified 07/22/24 10:05
Home Medications Table - record
�Medication �Instructions �Recorded �Confirmed
bupropion HCl 200 mg tablet,12 hr 200 mg PO DAILY Mental Health 09/08/21 07/22/24
sustained-release (Wellbutrin SR)
gabapentin 600 mg tablet 600 mg PO HS Pain 09/08/21 07/22/24
aspirin 81 mg chewable tablet 81 mg PO DAILY Blood clot 01/16/23 07/22/24
prevention/tx
cyanocobalamin (vitamin B-12) 1,000 mcg PO DAILY Supplement 01/16/23 07/22/24
1,000 mcg tablet
atorvastatin 20 mg tablet 40 mg PO DAILY High Cholesterol 01/10/24 07/22/24
multivitamin 1 tab PO DAILY Supplement 01/10/24 07/22/24
metoprolol succinate 25 mg 12.5 mg PO DAILY Blood Pressure 04/18/24 07/22/24
tablet,extended release 24 hr
(Toprol XL)
golimumab 12.5 mg/mL intravenous 100 mg IV Q8W rheumatologic 05/14/24 07/22/24
solution (Simponi ARIA) condition
levothyroxine 150 mcg tablet 150 mcg PO DAILY Thyroid 05/14/24 07/22/24
(Synthroid)
loperamide 2 mg tablet 2 mg PO Q6HPRN PRN diarrhea 05/14/24 07/22/24
ondansetron HCl 8 mg tablet 8 mg PO [id number] PRN nausea 05/14/24 07/22/24
pantoprazole 40 mg tablet,delayed 40 mg PO DAILY Gastrointestinal 05/14/24 07/22/24
release (Protonix) Issue
prednisone 5 mg tablet 5 mg PO DAILYPRN PRN ra 05/14/24 07/22/24
inflammation
tramadol 50 mg tablet 50 mg PO TIDPRN PRN moderate pain 05/14/24 07/22/24
apixaban 5 mg tablet (Eliquis) 5 mg PO BID 30 days #60 tabs 05/16/24 07/22/24
lisinopril 2.5 mg tablet 2.5 mg PO DAILY #30 tabs 05/16/24 07/22/24
olanzapine 5 mg disintegrating 10 mg PO HS 07/22/24 07/22/24
tablet
Review of Systems
-
A 12 point ROS was completed and negative except as noted: Yes
Physical Exam
Vital Signs
Vital Signs
Temp Pulse Resp BP Pulse Ox
98.2 F 103 18 117/80 96
07/22/24 12:16 07/22/24 12:19 07/22/24 12:19 07/22/24 12:19 07/22/24 11:30
Physical Exam
General: No Apparent Distress and Other (Thin, cachectic, appears chronically ill)
HEENT: NormoCephalic, Anicteric, Moist mucous membranes and Atraumatic
Respiratory: Clear
Cardiac: S1/S2 and Tachycardia
GI: Soft, Non Tender, Non Distended and Normal Bowel Sounds
Musculoskeletal: Edema, Left Lower Extremity and Other (Right AKA noted)
Skin: Warm
Neuro: Awake, Alert and Oriented
Psych: Calm
Laboratory Results
-
07/22/24 10:31
07/22/24 10:31
Laboratory Results
Total Bilirubin 1.2 mg/dl (0.2-1.3) 07/22/24 10:31
AST 26 U/L (17-59) 07/22/24 10:31
ALT 12 U/L (0-50) 07/22/24 10:31
Alkaline Phosphatase 148 U/L (38-126) H 07/22/24 10:31
Lipase 297 U/L (23-300) 07/22/24 10:31
Impression/Plan
-
HPI: 68-year-old male with a past medical history of metastatic lung cancer status post chemo and radiation, paroxysmal atrial fibrillation on Eliquis, diabetes, rheumatoid arthritis, anemia, COPD, hypertension, hyperlipidemia, and hypothyroidism
presents with fatigue and shortness of breath for 2-3 weeks. Patient states he finished his chemo and radiation treatments 3 weeks ago. About a week afterwards, he started having nausea, vomiting, diarrhea, and poor oral intake. Last loose stool
was 2-3 days ago. No abdominal pain. No chest pain, no shortness of breath.
#Symptomatic anemia
Hemoglobin 5.9 today, was 8.0 three weeks ago, baseline 9-11
Suspect likely from chemo
Consult oncology, transfuse 2 units packed red blood cells
#Nausea/vomiting
Zofran as needed, Compazine as needed
Monitor QTc
#Loose stools
Last bowel movement 2-3 days ago, loose per patient
#Stage III NSCLC
Follows [facility], consult oncology as above
#Hypovolemic hyponatremia
IV fluids
#Cachexia
#Failure to thrive
Start protein supplement, check prealbumin
#Leukocytosis
Patient is afebrile, was hypothermic at 96.2
Chest x-ray negative for pneumonia, check urine analysis, blood culture
#Hypomagnesemia
Replete by IV, trend a.m. labs
#Paroxysmal atrial fibrillation
Currently with sinus tachycardia
Continue Eliquis, metoprolol
#History of diabetes, no longer diabetic
Hemoglobin A1c 5.3
#Anxiety/depression
Continue Wellbutrin, olanzapine
#Hypothyroidism
Continue Synthroid
DVT prophylaxis�Eliquis
Full code
Total time spent to see the patient on the floor, examine the patient, review data and lab results, discuss treatment plan with patient, nursing staff around 78 minutes.
--- NOTE | 2024-07-22 13:27 | PTCARENOTE ---
received from ED. blood is infusing via RCW port. AAOx3, able to answer all the questions appropriately. skin check completed with 2 RNs. stage 2 pressure wound on mid back. foam dressing applied. VS obtained and documented. on RA, patient is w/c
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 on CLD. assisted with room service. family at bedside. assessment as documented.
[2024-07-22 13:55] LABS: Glycohemoglobin (HgbA1c) 5.3 % (4.0-5.6)
[2024-07-22] MEDS: ROXICODONE 5 MG PO (14:08)
[2024-07-22] MEDS: MAGNESIUM SULFATE 50 IV (15:03)
--- NOTE | 2024-07-22 15:34 | VNURNOTE ---
Chart reviewed. Patient is current with [facility] Nursing, PT, OT. Per T.Text from [facility] [employer] Geovany, patient has been declining at home- not eating since last chemo/rad tx. Patient's daughter requesting placement. [facility] remains available pending
DC dispo plan.
[2024-07-22] MEDS: TOPROL XL 12.5 MG PO (16:12)
--- NOTE | 2024-07-22 17:27 | CON.ONC ---
Impression
Impression
stage IIIB lung cancer, s/p chemo/RT which finished 06/20/24
symptomatic anemia, thrombocytopenia
Leukocytosis w/ immature granulocytes
N/V (brain MRI 05/14/24 showed no [employer] mets)
Plan
Plan
agree w/ pRBC transfusions
Prior anemia w/ u was unrevealing - will update iron studies, B12/folate and check flow cytometry
He may need bone marrow biopsy if cytopenias remain unexplained and don't improve
Continue antiemetics prn, low threshold to repeat [employer] imaging if symptoms persist
Patient History
History of Present Illness
This is a 68yo M w/ h/o stage IIIB lung cancer and chronic anemia, who finished chemo/RT on 06/20/24, who presented with fatigue and dyspnea, found to have hgb of 5.9 with MCV 98.3. He also has been struggling with N/V and diarrhea, recently started
on olanzapine per palliative care.
His second unit of PRBCs is running currently. He saw Dr. Redd prior to lung cancer diagnosis for anemia, which was thought secondary to etoh abuse, iron def, chronic inflammation from RA.
WBc elevated to 14.7, with immature granulocytes. He denies fevers or signs of infection.
Platelet count is 44, he denies bleeding.
Past-Medical/Surgical History
Stage III NSCLC
Paroxysmal atrial fibrillation
Paroxysmal atrial tachycardia
Not chronically anticoagulated due to low burden and h/o GIB
h/o GIB due to gastric ulcer 2020
DM2
COPD
Chronic Anemia
RA
HTN
HLD
Hypothyroidism
Past Surgical History: Reports Other (Peripheral bypass, peripheral angioplasty and stenting, R AKA)
Social History
Tobacco: Former Smoker
Alcohol: wine daily
Drug: None
Living: Alone
Family History
Family History: Not pertinent
Patient Medication
�Medication �Instructions �Recorded �Confirmed �Last Taken �Type
bupropion HCl 200 mg tablet,12 hr 200 mg PO DAILY Mental Health 09/08/21 07/22/24 2 Weeks Ago History
sustained-release (Wellbutrin SR) ~07/08/24
gabapentin 600 mg tablet 600 mg PO HS Pain 09/08/21 07/22/24 2 Weeks Ago History
~07/08/24
aspirin 81 mg chewable tablet 81 mg PO DAILY Blood clot 01/16/23 07/22/24 2 Weeks Ago History
prevention/tx ~07/08/24
cyanocobalamin (vitamin B-12) 1,000 mcg PO DAILY Supplement 01/16/23 07/22/24 2 Weeks Ago History
1,000 mcg tablet ~07/08/24
atorvastatin 20 mg tablet 40 mg PO DAILY High Cholesterol 01/10/24 07/22/24 2 Weeks Ago History
~07/08/24
multivitamin 1 tab PO DAILY Supplement 01/10/24 07/22/24 2 Weeks Ago History
~07/08/24
metoprolol succinate 25 mg 12.5 mg PO DAILY Blood Pressure 04/18/24 07/22/24 2 Weeks Ago History
tablet,extended release 24 hr ~07/08/24
(Toprol XL)
golimumab 12.5 mg/mL intravenous 100 mg IV Q8W rheumatologic 05/14/24 07/22/24 Unknown History
solution (Simponi ARIA) condition
levothyroxine 150 mcg tablet 150 mcg PO DAILY Thyroid 05/14/24 07/22/24 2 Weeks Ago History
(Synthroid) ~07/08/24
loperamide 2 mg tablet 2 mg PO Q6HPRN PRN diarrhea 05/14/24 07/22/24 2 Weeks Ago History
~07/08/24
ondansetron HCl 8 mg tablet 8 mg PO [id number] PRN nausea 05/14/24 07/22/24 Unknown History
pantoprazole 40 mg tablet,delayed 40 mg PO DAILY Gastrointestinal 05/14/24 07/22/24 2 Weeks Ago History
release (Protonix) Issue ~07/08/24
prednisone 5 mg tablet 5 mg PO DAILYPRN PRN ra 05/14/24 07/22/24 Unknown History
inflammation
tramadol 50 mg tablet 50 mg PO TIDPRN PRN moderate pain 05/14/24 07/22/24 05/14/24 History
apixaban 5 mg tablet (Eliquis) 5 mg PO BID 30 days #60 tabs 05/16/24 07/22/24 2 Weeks Ago Rx
~07/08/24
lisinopril 2.5 mg tablet 2.5 mg PO DAILY #30 tabs 05/16/24 07/22/24 2 Weeks Ago Rx
~07/08/24
olanzapine 5 mg disintegrating 10 mg PO HS 07/22/24 07/22/24 2 Weeks Ago History
tablet ~07/08/24
Active Medications
Generic Name Dose Route Start Last Admin
Trade Name Freq PRN Reason Stop Dose Admin
Acetaminophen 650 mg 07/22/24 13:12
Acetaminophen 325 Mg Tablet PO 08/19/24 13:11
Q4HPRN PRN
mild pain/BROWN/temp> 100.4F
Apixaban 5 mg 07/22/24 20:00
Apixaban (Eliquis) 5 Mg Tablet PO 08/19/24 19:59
BID AYAZ
Aspirin 81 mg 07/23/24 08:00
Aspirin 81 Mg Chewable Tablet PO 08/20/24 07:59
DAILY AYAZ
Atorvastatin Calcium 40 mg 07/23/24 08:00
Atorvastatin (Lipitor) 40 Mg Tablet PO 08/20/24 07:59
DAILY AYAZ
Bupropion HCl 200 mg 07/23/24 08:00
Bupropion (12hr) Sustained Release 100 Mg Tablet PO 08/20/24 07:59
DAILY AYAZ
Cyanocobalamin 1,000 mcg 07/23/24 08:00
Cyanocobalamin 1,000 Mcg Tablet PO 08/20/24 07:59
DAILY AYAZ
Gabapentin 600 mg 07/22/24 22:00
Gabapentin 300 Mg Capsule PO 08/19/24 21:59
HS AYAZ
Lactated Ringer's 1,000 mls @ 75 mls/hr 07/22/24 13:12
Lr IV
[id number] AYAZ
Levothyroxine Sodium 150 mcg 07/23/24 06:00
Levothyroxine 150 Mcg Tablet PO 08/20/24 05:59
DAILY @ 0600 AYAZ
Lisinopril 2.5 mg 07/23/24 08:00
Lisinopril 2.5 Mg Tablet PO 08/20/24 07:59
DAILY AYAZ
Loperamide HCl 2 mg 07/22/24 14:07
Loperamide 2 Mg Capsule PO 08/19/24 14:06
Q6HPRN PRN
diarrhea
Metoprolol Succinate 12.5 mg 07/22/24 15:00 07/22/24 16:12
Metoprolol 12.5 Mg Extended Release Dose (1/2 Of 25 Mg Xl Tablet) PO 08/19/24 14:59 12.5 mg
DAILY AYAZ Administration
Multivitamins Therapeutic 1 tablet 07/23/24 08:00
Multivitamin Tablet PO 08/20/24 07:59
DAILY AYAZ
Olanzapine 10 mg 07/22/24 22:00
Olanzapine (Orally-Disintegrating) 5 Mg Tablet PO 08/19/24 21:59
HS AYAZ
Ondansetron HCl 4 mg 07/22/24 17:00
Ondansetron 4 Mg/2 Ml Vial IV 08/19/24 16:59
Q6HPRN PRN
NAUSEA/VOMITING
Oxycodone HCl 5 mg 07/22/24 13:12 07/22/24 14:08
Oxycodone 5 Mg Regular Release Tablet PO 08/05/24 13:11 5 mg
Q4HPRN PRN Administration
severe pain
Pantoprazole Sodium 40 mg 07/23/24 08:00
Pantoprazole 40 Mg Delayed Release Tablet PO 08/20/24 07:59
DAILY AYAZ
Prednisone 5 mg 07/22/24 13:12
Prednisone 5 Mg Tablet PO 08/19/24 13:11
DAILYPRN PRN
ra inflammation
Prochlorperazine Edisylate 10 mg 07/22/24 18:00
Prochlorperazine 10 Mg/2 Ml Vial IV 08/19/24 17:59
Q6HPRN PRN
n/v not relieved w/ zofran
Sodium Chloride 0 flush 07/22/24 14:00
Sodium Chloride 0.9% (Flush) Syringe IV 08/19/24 13:59
PER PROTOCOL AYAZ
Tramadol HCl 50 mg 07/22/24 13:12
Tramadol Hcl 50 Mg Tablet PO 08/19/24 13:11
TIDPRN PRN
moderate pain
Review of Systems
-
All Other Systems: Not reviewed unless documented
Physical Exam
-
General: Appears Chronically Ill
HEENT: Negative Jaundice
Cardiology: Normal Sinus Rhythm
Pulmonary: Clear
GI: Soft
Musculoskeletal: Other (right BKA)
Neurology: Non Focal
Skin: Warm and Dry
Psych: Calm
Labs
Lab Results
WBC 14.7 10^3/uL (4.8-10.8) H 07/22/24 10:31
RBC 1.78 10^6/uL (4.70-6.10) L 07/22/24 10:31
Hgb 5.9 g/dL (13.0-18.0) L* 07/22/24 10:31
Hct 17.5 % (39.0-52.0) L* 07/22/24 10:31
MCV 98.3 fL (80.0-94.0) H 07/22/24 10:31
MCH 33.1 pg (27.0-31.0) H 07/22/24 10:31
MCHC 33.7 g/dL (33.0-37.0) 07/22/24 10:
RDW 21.6 % (11.5-14.5) H 07/22/24 10:31
Plt Count 44 10^3/uL (130-400) L 07/22/24 10:
MPV 12.0 fL (7.4-10.4) H 07/22/24 10:31
Abs Immat Gran (auto) 0.7 10^3/uL (0-0.05) H 07/22/24 10:
Absolute Neuts (auto) 12.7 10^3/uL (1.4-6.5) H 07/22/24 10:
Absolute Lymphs (auto) 0.3 10^3/uL (1.2-3.4) L 07/22/24 10:
Absolute Monos (auto) 0.9 10^3/uL (0.1-0.6) H 07/22/24 10:
Absolute Eos (auto) 0.0 10^3/uL (0-0.7) 07/22/24 10:
Absolute Basos (auto) 0.0 10^3/uL (0-0.2) 07/22/24 10:
Immature Gran % 4.7 % (0-0.5) H 07/22/24 10:
Neutrophils % 86.5 % (42.2-75.2) H 07/22/24 10:
Lymphocytes % 2.1 % (20.5-51.1) L 07/22/24 10:
Monocytes % 6.4 % (1.7-9.3) 07/22/24 10:
Eosinophils % 0.1 % (0-6) 07/22/24 10:
Basophils % 0.2 % (0-2) 07/22/24 10:
Creatinine 0.8 mg/dL (0.7-1.3) 07/22/24 10:31
Vital Signs
Vital Signs
Temp Pulse Resp BP Pulse Ox
98.2 F 106 21 111/72 96
07/22/24 16:48 07/22/24 16:48 07/22/24 16:48 07/22/24 16:48 07/22/24 16:48
[2024-07-22] MEDS: LR 1000 IV (18:09)
[2024-07-22 18:17] LABS: Urine Albumin 1+ (Neg - Trace); Urine Bilirubin 2+ (Negative); Urine Character Clear (Clear); Urine Color Yellow; Urine Glucose Negative (Negative); Urine Ketone Negative (Negative); Urine Leukocyte 2+ (Negative); Urine Nitrite Negative (Negative); Urine Occult Blood 3+ (Negative); Urine Urobilinogen 3+ (Neg - 1+)
[2024-07-22 18:23] LABS: Urine Calcium Oxalate Crystals Present; Urine Squamous Cell 0-2 /LPF (Few)
[2024-07-22 18:24] LABS: Urine Bacteria Many (Negative); Urine White Cell 70-80 /HPF (0-5)
[2024-07-22 19:07] LABS: Iron 62 ug/dl (49-181)
[2024-07-22 19:17] LABS: Percent Saturation 82 % (20-50); Total Iron Binding Capacity 75 ug/dl (261-462)
[2024-07-22] MEDS: ELIQUIS 5 MG PO (20:08)
[2024-07-22 20:36] LABS: Folate 3.1 ng/ml (2.76-20); Vitamin B12 > 1000 pg/ml (239-931)
[2024-07-22] MEDS: NEURONTIN 600 MG PO (21:34)
[2024-07-22] MEDS: ZYPREXA ZYDIS (ORALLY DISINTEGRATING) 10 MG PO (21:35)
[2024-07-23] VITALS (35 sets, daily range): BP systolic 68–116; BP diastolic 40–71; O2SAT 97
[2024-07-23] MEDS: SYNTHROID 150 MCG PO (05:45)
[2024-07-23] MEDS: LR 1000 IV (05:45)
[2024-07-23 06:02] LABS: Hematocrit 22.3 % (39.0-52.0); Hemoglobin 7.8 g/dL (13.0-18.0); Mean Corpuscular Hgb 32.1 pg (27.0-31.0); Mean Corpuscular Volume 91.8 fL (80.0-94.0); Mean Platelet Volume 11.6 fL (7.4-10.4); Red Blood Cell Count 2.43 10^6/uL (4.70-6.10); Red Cell Dist. Width 18.8 % (11.5-14.5); White Blood Cell Count 9.2 10^3/uL (4.8-10.8)
[2024-07-23 06:03] LABS: Platelet Count 30 10^3/uL (130-400)
[2024-07-23 06:23] LABS: Procalcitonin 0.17 ng/ml (0.0-0.25)
[2024-07-23 06:24] LABS: Blood Urea Nitrogen 17 mg/dl (9-20); Calcium 7.2 mg/dl (8.4-10.2); Carbon Dioxide 26 mmol/L (22-30); Chloride 99 mmol/L (98-107); Estimated Creatinine Clearance 79 ml/min; Glucose 62 mg/dl (70-99); Magnesium 1.8 mg/dl (1.6-2.3); Phosphorus 3.5 mg/dl (2.5-4.5); Potassium 3.9 mmol/L (3.5-5.1); Sodium 132 mmol/L (135-145); eGFR > 60.00
[2024-07-23 06:29] LABS: Prealbumin (Transthyretin) 3.8 mg/dl (17.6-36.0)
--- NOTE | 2024-07-23 07:15 | W.PN.ONC2 ---
Today's Communication / Plan
-
Anemia improved with transfusion; platelet count is dropping.
Her forearms, no clear-cut evidence to explain this.
Awaiting flow cytometry and BCR/ABL. Low threshold for bone marrow aspirate biopsy but I think that this would be somewhat unusual to have 2 separate diagnoses all within the same timeframe but that is possible as patient's platelet counts were
normal just prior to starting chemoradiation.
Continue inpatient observation and monitoring.
Impression
Impression
stage IIIB lung cancer, s/p chemo/RT which finished 06/20/24
symptomatic anemia, thrombocytopenia
Leukocytosis w/ immature granulocytes
N/V (brain MRI 05/14/24 showed no [employer] mets)
Plan
Plan
agree w/ pRBC transfusions. Hemoglobin much improved from 5.9 up to 7.8.
Platelet count 30,000. This is quite atypical based on the patient's recent chemoradiation but I do not have any other specific cause.
Awaiting flow cytometry and added BCR/ABL as differential seems to show predominantly granulocytic forms
Prior anemia w/ u was unrevealing.
No evidence of iron deficiency with ferritin >1000. Will start folic acid.
He may need bone marrow biopsy if cytopenias remain unexplained and don't improve.
Subjective/Objective
Chief Complaint
ACS Heme Onc
Subjective
States he is feeling much better. Vomiting much better. He is hungry. No fevers or chills. No bleeding
Vital Signs:
Vital Signs
Temp Pulse Resp BP Pulse Ox
97.4 F 94 18 111/65 96
07/22/24 23:14 07/22/24 23:14 07/22/24 23:14 07/22/24 23:14 07/22/24 23:14
Lab Results:
Laboratory Data
WBC 9.2 10^3/uL (4.8-10.8) 07/23/24 05:35
Hgb 7.8 g/dL (13.0-18.0) L D 07/23/24 05:35
Plt Count 30 10^3/uL (130-400) L D 07/23/24 05:35
eGFR > 60.00 07/23/24 05:35
Physical Exam
HEENT: No Jaundice
Cardiology: S1 and S2
Pulmonary: Clear
GI: Soft
Extremities: Other (Right AKA)
Review of Systems
Review of Systems
Feeling better. No bleeding.
Constitutional: Denies Fever
Gastrointestinal: Denies Nausea/Vomiting
Orders
Orders
Orders From Last 24 Hours
07/23/24 05:35
BCR-ABL1 Qual Reflex to Quant [S] Routine
[2024-07-23] MEDS: TOPROL XL 12.5 MG PO (09:08)
--- NOTE | 2024-07-23 09:08 | W.PN.HOSP.TC ---
Today's Communication/Plan
-
see bold
Assessment / Plan
Assessment / Plan
HPI: 68-year-old male with a past medical history of metastatic lung cancer status post chemo and radiation, paroxysmal atrial fibrillation on Eliquis, diabetes, rheumatoid arthritis, anemia, COPD, hypertension, hyperlipidemia, and hypothyroidism
presents with fatigue and shortness of breath for 2-3 weeks. Patient states he finished his chemo and radiation treatments 3 weeks ago. About a week afterwards, he started having nausea, vomiting, diarrhea, and poor oral intake. Last loose stool
was 2-3 days ago. No abdominal pain. No chest pain, no shortness of breath.
#Symptomatic anemia
#Thrombocytopenia
Hemoglobin 7.8 today, increased from 5.9 status post 2 units packed red blood cells 07/22
No evidence of iron deficiency with ferritin >1000. Oncology started folic acid 07/23
Appreciate oncology input, follow-up flow cytology and BCR/ABL
He may need bone marrow biopsy if cytopenias remain unexplained and don't improve
#Nausea/vomiting
Discontinue Zofran/Compazine secondary to prolonged QTc
Phenergan p.o. as needed, Tigan IM as needed
#Prolonged QTc
Discontinue Zofran/Compazine
Monitor EKG daily
#Loose stools
Last bowel movement 2-3 days ago, loose per patient
#Stage III NSCLC
[facility], oncology following inpatient
Consult palliative care
#Hypovolemic hyponatremia
Improved with IV fluids, continue
#Cachexia
#Failure to thrive
#Severe protein calorie malnutrition
Continue protein supplement, consult palliative care
#Leukocytosis
Patient is afebrile, was hypothermic at 96.2
Chest x-ray negative for pneumonia, blood culture negative to date
Leukocytosis resolved without any antibiotics
Urine analysis is positive, will follow-up on urine culture
#Hypomagnesemia
Repleted and resolved
#Paroxysmal atrial fibrillation
Currently with sinus tachycardia
Continue Eliquis, metoprolol
#History of diabetes, no longer diabetic
Hemoglobin A1c 5.3
#Anxiety/depression
Continue Wellbutrin, olanzapine
#Hypothyroidism
Continue Synthroid
DVT prophylaxis�Eliquis
Full code
Updated daughter on phone 07/23
Total time spent to see the patient on the floor, examine the patient, review data and lab results, discuss treatment plan with patient, nursing staff around 50 minutes.
Physical Exam
General: No Apparent Distress and Other (Thin, cachectic, appears chronically ill)
HEENT: NormoCephalic, Anicteric, Moist mucous membranes and Atraumatic
Respiratory: Clear
Cardiac: S1/S2 and regular rate/rhythm
GI: Soft, Non Tender, Non Distended and Normal Bowel Sounds
Musculoskeletal: Edema, Left Lower Extremity and Other (Right AKA noted)
Skin: Warm
Neuro: Awake, Alert and Oriented
Psych: Calm
Anticipated Discharge: > 48 hours
Subjective/Interval History
-
Date of Service: July 23, 2024
Patient reports feeling better. Shortness of breath improved. Nausea improved. No vomiting. He tolerated solids this morning. No fever, no chest pain.
Objective Data
-
Labs:
Laboratory Results
07/23/24
05:35
WBC 9.2
Hgb 7.8 L D
Hct 22.3 L
Plt Count 30 L D
Sodium 132 L
Potassium 3.9
Chloride 99
Carbon Dioxide 26
BUN 17
Creatinine 0.7
Glucose 62 L
Calcium 7.2 L
Vital Signs:
Vital Signs
Temp Pulse Resp BP Pulse Ox
97.6 F 81 16 100/64 95
07/23/24 08:22 07/23/24 08:22 07/23/24 08:22 07/23/24 08:22 07/23/24 08:22
I&O
07/22/24 07/23/24 07/24/24
06:59 06:59 06:59
Intake Total 500 / 500
Output Total 200 / 200
Balance 500 / 500 -200 / -200
[2024-07-23] MEDS: FOLVITE 1 MG PO (09:09)
[2024-07-23] MEDS: WELLBUTRIN SR (12 hour sustained release) 200 MG PO (09:09)
[2024-07-23] MEDS: THERAGRAN 1 TABLET PO (09:09)
[2024-07-23] MEDS: ELIQUIS 5 MG PO (09:09)
[2024-07-23] MEDS: VITAMIN B-12 1000 MCG PO (09:10)
[2024-07-23] MEDS: LOW STRENGTH ASPIRIN 81 MG PO (09:10)
[2024-07-23] MEDS: PROTONIX 40 MG PO (09:10)
[2024-07-23] MEDS: LIPITOR 40 MG PO (09:10)
--- NOTE | 2024-07-23 12:57 | W.CON.PAL ---
Consultation
-
Date/Time Consultation Requested: 07/23/2024
Date/Time Consultation Performed: 07/23/2024
Requesting Provider: Dr. Lobo
Performing Provider: Dr. Maher
Reason for Consult: Goals of Care Discussion
Primary Diagnosis: Symptomatic Anemia
Related Diagnosis: IV Lung cancer
Consult Requested By: Patient's Physician
Reason for Admission
Illness Course/HPI
Adam is a 68 y/o male with IV lung cancer who completed chemo therapy and radiation to the ribs about one month ago. He is s/p Right BKA approx 3 years ago. Admitted to hospital because of new finding of symptomatic anemia, hgb 5.9 and Low
platelets
He joined the outpatient palliative care program Jun 27, 2024.
Palliative care consult today to discuss goals of care of care.
Functional Status
He lives by himself in an appartment. He has caregivers 16-20 hours per week. At his baseline he is able to transfer out of bed into a chair, and even has a specialized car equiped with hand control brakes.
In the past month due to severe diarrhea, nausea and vomiting, he has become quite weak, but was starting on olanzapine which helped control symptoms (started approx 2 weeks ago), diarrhea is also better at present time.
Goals of Care Discussion
-
Individuals Present for Discussion & Relationship to Patient:
Patient
Patient's Information Preferences: Fully Involved/Able to Participate
Patient Goals
Patient was able to discuss his goals of care.
He reports he was actually scheduled for outpatient PET scan today for follow up of his lung cancer. If his lung cancer had showed signs of recurrence/progression, he was considering transition to hospice care.
Now with new complication of anemia, he would like to know if his anemia is from a correctable cause, and can be treated. If workup is showing a new/secondary cancer, would likely transition to hospice care.
He would prefer to be at home and hopes to maintain function in his hands and maintain his mentation.
If he was unable to make decisions, he would prefer his daughter Arminda to be his medical poa. he has not completed directives and he is aware that untill then both his son and daughter would legally share medical decision making authority. He
plans to complete the documentation in the near future.
Regarding code status - he is aware that chances of meaningful recovery are low, but would still want a trial of CPR. He would not want to be intubated however for more than 2 weeks and would not want tracheostomy to be done. If he is unable to
return to his current baseline level of function, then he would prefer to focus on comfort care.
He is hoping to complete medicaid application [facility] if he qualifies.
Pain & Symptom Assessment
-
He reports still feels tired but better than before the transfusion.
Today denies nasuea/vomiting. was able to eat
Objective Data
-
Objective Data:
Vital Signs
Temp Pulse Resp BP Pulse Ox
96.3 F L 86 14 116/71 99
07/23/24 11:46 07/23/24 11:46 07/23/24 11:46 07/23/24 11:46 07/23/24 11:46
Laboratory Results
07/23/24 05:35
07/23/24 05:35
Hemoglobin A1c 5.3 % (4.0-5.6) 07/22/24 10:31
Total Protein 5.3 g/dl (6.3-8.2) L 07/22/24 10:31
Albumin 2.1 g/dl (3.5-5.0) L 07/22/24 10:31
Prealbumin 3.8 mg/dl (17.6-36.0) L 07/23/24 05:35
Urine Color Yellow 07/22/24 18:10
Urine Clarity Clear (Clear) 07/22/24 18:10
Urine pH 6.0 (5.0-9.0) 07/22/24 18:10
Ur Specific [place] 1.020 (<1.030) 07/22/24 18:10
Urine Ketones Negative (Negative) 07/22/24 18:10
Urine Bilirubin 2+ (Negative) A 07/22/24 18:10
Palliative Performance Scale
Palliative Performance Scale:
PPS Level Ambulation Activity & Evidence of Disease Self Care Intake Conscious Level
100% Full Normal Activity & Work; Full Intake Full
No Evidence of Disease
90% Full Normal Activity & Work; Full Normal Full
Some Evidence of Disease
80% Full Normal Activity with Effort Full Normal or Full
Some Evidence of Disease Reduced
70% Reduced Unable Normal Job/Work Full Normal or Full
Significant Disease Reduced
60% Reduced Unable Hobby/Housework Occasional Normal or Full or Confusion
Significant Disease Assistance Reduced
50% Mainly Sit/Lie Unable to do Any Work Considerable Normal or Full or Confusion
Extensive Disease Assistance Req'd Reduced
40% Mainly in Bed Unable to do Most Activity Mainly Assistance Normal or Full or Drowsy;
Extensive Disease Reduced +/- Confusion
30% Totally Bed Unable to do Any Activity Total Care Normal or Full or Drowsy;
Bound Extensive Disease Reduced +/- Confusion
20% Totally Bed Bound Unable to do Any Activity Total Care Minimal to Full or Drowsy;
Extensive Disease Sips +/- Confusion
10% Totally Bed Bound Unable to do Any Activity Total Care Mouth Care Drowsy or Coma;
Extensive Disease Only +/- Confusion
0%
PPS Score Level:
Palliative Performance Score Response
Palliative Performance Score Response: 40%
Physical Exam
-
General: No Apparent Distress and Comfortable
Neuro: Awake and Alert
Psych: Calm and Intact Judgement/Insight
Assessment / Plan
-
Assessment/Plan:
Goals are treatment oriented, pending PET scan (now to be rescheduled as an outpatient) and anemia workup, likely to transition to comfort care if showing cancer progression.
Full code status with time limited trial on vent.
Patient working on advanced directive completion.
Regarding anemia - anemia and thrombocytopenia predates initiation of olanzapine, however if medication induced cytopenia is suspected, would discontinue and trial another medication for nausea control.
Spoke with daughter arminda, provided update.
Care Reviewed
Data Reviewed
Reviewed with: Patient
--- NOTE | 2024-07-23 15:51 | CM ---
Patient seen bedside, initial assessment completed. Patient resides independently in an apartment, fourth floor, elevator access. Patient has a cane, walker, wheelchair, and trapeze bar at home, current with [facility]. Patient denies SNF history,
agreeable to SNF, referrals placed to [facility]. Patient confirms PCP Marga Galindo, [facility], confirms prescription coverage. Patient denies insecurities at home, has meals on wheels. Palliative care consulted. CM
will continue to follow for all discharge planning needs.
Plan; SNF pending accepting facility.
[2024-07-23 15:53] LABS: Glucose - Point of Care 110 mg/dl (70-99)
--- NOTE | 2024-07-23 16:05 | PN.CDI ---
CDI
- -
CDI:
Physician Documentation Request
Admit Date: 07/22/24 12:26
Dear Doctor Do,
07/22 assessment and notes: Muscle loss over clavicle Severe, Temporal severe. Patient meets ASPEN critieria for severe protein calorie malnutrition of chronic illness due to less than 75% of nutritional needs met for more than 1 month and severe
muscle loss of the clavical and temporal regions. BMI 15.5 underweight (<18.5)
Based on the above information and your assessment, which of the following most accurately represents the patient's nutritional status?
Severe Malnutrition
Other (please specify)
Amalia Criteria ([facility] Hospitalist 2017)
2 or more criteria must be present for either
non severe or severe malnutrition
Note that the criteria differs related to the
presence of an acute or chronic illness
Acute Illness Chronic Illness
Energy Intake Non Severe: <75% for >7 days Non Severe: <75% for >1 month
Severe: <50% for >5 days Severe: <75% for >1 month
Weight Loss Non Severe: 1-2% over 1 week Non Severe: 5% over 1 month
5% over 1 month 7.5% over 3 months
7.5% over 3 months 10% over 6 months
1 year N/A 20% over 1 year
Severe: >2% over 1 week Severe: >5% over 1 month
>5% over 1 month >7.5% over 3 months
>7.5% over 3 months >10% over 6 months
1 year N/A >20% over 1 year
Body Fat Non Severe: Mild Decrease Non Severe: Mild Loss
Severe: Moderate Decrease Severe: Severe Loss
Muscle Mass Non Severe: Mild Decrease Non Severe: Mild Loss
Severe: Moderate Decrease Severe: Severe Loss
Fluid Accumulation Non Severe: Mild Accumulation Non Severe: Mild Accumulation
Severe: Moderate to severe Severe: Moderate to severe
accumulation accumulation
Reduced [employer] Kettle Tender Strength Non Severe: N/A Non Severe: N/A
Severe: Measurably reduced Severe: Measurably reduced
Use of terms such as suspected, likely, concern for, or probable (associated with a specific diagnosis that is being evaluated, monitored, or treated as if it exists) are acceptable and can be coded in the inpatient setting, when documented at the
time of discharge.
Thank you,
Isela Funez RN, BSN
CDI Specialist
tiger text
Please use your independent medical judgment in providing your response.
--- NOTE | 2024-07-23 16:24 | W.PN.UPDATE ---
Update Note
Progress Note Update
Called to evaluate the patient as he was hypotensive and he was also complaining of 8 out of 10 abdominal pain after he ate.
Patient is awake and alert able to communicate sitting up does not want to lay down as his back hurts. He stated that his pain started after he ate he had a good meal but now it hurts. Blood pressure is low he has slight dizziness but not
symptomatic otherwise.
Examination
Cachectic appearing gentleman
Cardiovascular system S1-S2 appreciated
Chest decreased breath sounds at bases
Abdomen epigastric tenderness present
Right amputation
Chart reviewed admitted for symptomatic anemia and thrombocytopenia
Hemoglobin 7.8 after 2 units of blood on 07/22/2024.
Patient has a history of stage III non-small cell lung cancer
Will give a bolus of normal saline 500 mL
Repeat blood pressure
Check EKG and troponin
If blood pressure not coming up needs to be transferred to stepdown
Discussed with nursing at bedside
Spoke to daughter.
Is very sick and he is waiting for his repeat scan to see if he will accept hospice.
CODE STATUS was addressed I asked if he would consider DNR daughter said that if it is up to her she would make a decision for him to be DNR but he does not want it at this time. Family is in the process of talking to him regarding this.
CC time 20 min
[2024-07-23 17:06] LABS: Lipase 151 U/L (23-300)
[2024-07-23] MEDS: NSS 250 IV (17:27)
--- NOTE | 2024-07-23 17:41 | W.PN.UPDATE ---
Addendum entered and electronically signed by Niurka Quinones MD 07/23/24 18:42:
Per discussion with Heme Onc. switch Eliquis to Heparin gtt.
Original Note:
Update Note
Progress Note Update
Discussed with radiology. Patient has a right-sided pulmonary embolism on CT chest, portal venous gas, moderate pericardial effusion, air in the mesenteric veins, emphysematous cystitis, 7.6 endometrial low-attenuation density soft tissue involving
and dystrophic right inferior pubic ramus metastasis versus infection.
Plan
Transferred patient to ICU
He likely has septic shock
Check Blood Cx times 2
Unclear why he has portal venous gas and air in the mesenteric veins I have requested general surgery to weigh in. Per discussion with general surgery patient's bile look bowels look okay.
He had has really bad emphysematous cystitis-I have started him on meropenem with a now dose.
Urine cultures with gram-negative bacilli noted
Continue with Eliquis
Will give patient IV fluids
Start pressors if needed
Check venous Dopplers
For pericardial effusion-will consult cardiology. I am reluctant to hold Eliquis given PE. This is likely malignant effusion
Check echo
Keep n.p.o.
Hold Zestril, metoprolol and also aspirin
I will also give him a stress dose of steroids because of patient using prednisone
Also texted lath tier regarding the transfer.
Multiple discussions with radiology.
I called and spoke to patient's daughter regarding all the findings on the CT scan. Guarded prognosis explained. She is supposed to travel for work tomorrow , but decided to stay back instead.
Critical care time 45 minutes
--- NOTE | 2024-07-23 18:20 | CON.CAR ---
Consultation
Consultation Request
Date/Time Consultation Requested: 07/23/2024 at 6:10 PM
Date/Time Consultation Performed: 07/23/2024 at 6:20 PM
Requesting Provider: Drs. Shen
Performing Provider: Dr Brenda Maxwell
Reason for Consultation: Hypertension pericardial effusion
Medical History
-
History of Present Illness:
He is a 68-year-old man with metastatic non-small cell lung cancer status post chemo and radiation (06/20/2024), coronary artery disease, peripheral vascular disease status post right AKA paroxysmal atrial fibrillation/PAT on Eliquis, rheumatoid
arthritis who presented with fatigue and shortness of breath. He has had nausea, vomiting, diarrhea and poor oral intake. Given poor p.o. intake and weight loss he has not been taking his outpatient medications including Eliquis. For the past few
weeks along with the GI symptomatology he has felt short of breath. He denies chest pain and palpitations.
He has history of hypertension and hyperlipidemia.
He became hypotensive this evening. CT scan tonight 07/23/2024 revealed moderate pericardial effusion, filling defects in distal right main pulmonary artery extending to predominately right lower lobe pulmonary artery branches consistent with
pulmonary embolism. Small bilateral pleural effusions. Left lower lobe mass no longer identified. Small sclerosis left sixth rib. Air in the liver suspicious for portal venous gas as well as widespread mesenteric air marked emphysematous
cystitis. Pelvic cystic density measuring 7.6 cm suspicious for a large metastatic lesion versus infection.
Of note he is also being followed by oncology he has anemia which responded to transfusion however platelet count was dropping. He had leukocytosis with immature granulocytes. During this admission hemoglobin improved from 5.9 up to 7.8 but
platelet count 30,000. BUN/creatinine 17/0.7. EKG 07/23/2024 at 1620 sinus rhythm with right bundle branch block and left axis deviation. Cannot rule out old inferior wall DE.
At last admission 05/16/2024 as part of the workup for malignancy he underwent a CT scan which revealed an acute/subacute CVA on brain MRI. He then underwent further testing and was noted to have occlusion of the right internal carotid artery and
50% stenosis of left internal carotid artery. He underwent echocardiogram which showed ejection fraction 35 to 40%.
He was noted to have paroxysmal atrial fibrillation/atrial tachycardia he was transition from aspirin and Plavix to DOAC given CVA and atrial arrhythmia. He was also seen by neurology at that time.
Rhythm star monitor revealed PACs and PVCs no significant pauses. No atrial fibrillation. 1 9 beat run of nonsustained VT.
Echocardiogram 05/14/2024 with EF 35 to 40%. Mild LVH. Normal RV. Aortic valve sclerosis.
Guideline directed medical therapy of heart failure with reduced ejection fraction was limited because of patient's blood pressure.
Previously in 2021 he had cardiac catheterization with chronic total occlusion of distal left circumflex which is medically managed. Otherwise he had nonobstructive disease. At that time V gram in the setting of PVCs noted ejection fraction of
40%. He underwent Lexiscan nuclear stress test in 2021 which revealed ejection fraction of 33%. At time of recent echocardiogram it was felt that ejection fraction of 35 to 40% may not have been very different than in 2021.
Past Medical History
Past Medical History: Arrhythmias (PAF and atrial tachycardia), CAD (Medically managed chronic total occlusion left circumflex 12/2021), Cancer (Non-small cell lung cancer carboplatin and paclitaxel along with radiation), CHF (Cardiomyopathy with
ejection fraction 35 to 40%), COPD, CVA (Carotid disease), Hypercholesterolemia, Hypothyroidism, NIDDM and Other (Anemia, peripheral vascular disease; Peripheral vascular disease status post angioplasty and stenting left common iliac artery and left
external iliac artery 01/18/2024. 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
Past Surgical History: Other (Right AKA)
Social History
Tobacco: Former Smoker
Family History
Family History: Reviewed & Not Pertinent
Allergies / Home Medications
Allergy/AdvReac Type Severity Reaction Status Date / Time
No Known Allergies Allergy Verified 07/22/24 10:05
�Medication �Instructions �Recorded �Confirmed �Type
bupropion HCl 200 mg tablet,12 hr 200 mg PO DAILY Mental Health 09/08/21 07/22/24 History
sustained-release (Wellbutrin SR)
gabapentin 600 mg tablet 600 mg PO HS Pain 09/08/21 07/22/24 History
aspirin 81 mg chewable tablet 81 mg PO DAILY Blood clot 01/16/23 07/22/24 History
prevention/tx
cyanocobalamin (vitamin B-12) 1,000 mcg PO DAILY Supplement 01/16/23 07/22/24 History
1,000 mcg tablet
atorvastatin 20 mg tablet 40 mg PO DAILY High Cholesterol 01/10/24 07/22/24 History
multivitamin 1 tab PO DAILY Supplement 01/10/24 07/22/24 History
metoprolol succinate 25 mg 12.5 mg PO DAILY Blood Pressure 04/18/24 07/22/24 History
tablet,extended release 24 hr
(Toprol XL)
golimumab 12.5 mg/mL intravenous 100 mg IV Q8W rheumatologic 05/14/24 07/22/24 History
solution (Simponi ARIA) condition
levothyroxine 150 mcg tablet 150 mcg PO DAILY Thyroid 05/14/24 07/22/24 History
(Synthroid)
loperamide 2 mg tablet 2 mg PO Q6HPRN PRN diarrhea 05/14/24 07/22/24 History
ondansetron HCl 8 mg tablet 8 mg PO [id number] PRN nausea 05/14/24 07/22/24 History
pantoprazole 40 mg tablet,delayed 40 mg PO DAILY Gastrointestinal 05/14/24 07/22/24 History
release (Protonix) Issue
prednisone 5 mg tablet 5 mg PO DAILYPRN PRN ra 05/14/24 07/22/24 History
inflammation
tramadol 50 mg tablet 50 mg PO TIDPRN PRN moderate pain 05/14/24 07/22/24 History
apixaban 5 mg tablet (Eliquis) 5 mg PO BID 30 days #60 tabs 05/16/24 07/22/24 Rx
lisinopril 2.5 mg tablet 2.5 mg PO DAILY #30 tabs 05/16/24 07/22/24 Rx
olanzapine 5 mg disintegrating 10 mg PO HS Mental Health/Anxiety 07/22/24 07/22/24 History
tablet
Review of Systems
-
History Source: Patient and Family
All other systems: Negative unless noted
Constitutional: Weight Loss and Fatigue
Respiratory: Trouble Breathing
Physical Exam
Vital Signs
Temp Pulse Resp BP Pulse Ox
97.2 F 67 16 68/40 99
07/23/24 15:52 07/23/24 15:52 07/23/24 15:52 07/23/24 15:52 07/23/24 15:52
Lab Results
07/23/24 05:35
Hum-C-Fwuydejzvyj Pept 9670 pg/ml 07/22/24 10:54
General: Cachectic appearing man
Heart: Non displaced PMI, RRR, no murmurs, No S3, S4, no rubs.
Lungs: Coarse anterior breath sounds
Extremities: No clubbing, cyanosis or edema bilaterally.
Neuro: Grossly nonfocal, awake, alert and oriented x3.
Impression / Plan
-
PCP: Dr. Castellano
Horse Stud Worker: Dr. Aponte
Impression:
Hypotension
Likely sepsis
Moderate pericardial effusion
Pulmonary embolism despite being on Eliquis oral anticoagulation-07/23/2024
Anemia
Thrombocytopenia
Recent acute/subacute R parietal/frontal infarct on MRI of brain 05/14/24
Cardiomyopathy, EF 35-40% by echo 05/14/24
Carotid artery disease
Total occlusion of R ICA, 50% stenosis L ICA by CTA head/neck 05/14/24Stage III NSCLC
Recently started chemo (Carboplatin and paclitaxel) 05/02/24 and radiation 4CAD
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
s/p angioplasty and stenting of left common iliac artery and left external iliac artery 01/18/2024
s/p R AKA
Paroxysmal atrial fibrillation
Paroxysmal atrial tachycardia
h/o GIB due to gastric ulcer 2020
DM2
COPD
Chronic Anemia
RA
HTN
HLD
Hypothyroidism
LHC 01/06/2022: FOOD AND BEVERAGE CHECKER of distal circumflex. Nonobstructive disease in LAD. EF 40%.
Echo 12/30/2020: EF 50 to 55%, mild concentric LVH, mild basal to mid inferolateral hypokinesis, stage I diastolic dysfunction, trace TR, estimated PAP 40 mmHg
Echo 05/14/2024: EF 35 to 40%, global hypokinesis with regional variability, mild concentric LVH, stage I diastolic dysfunction, aortic sclerosis without stenosis
Echocardiogram preliminary 07/23/2024 Limited study: Ejection fraction 40%. Normal right ventricle. No significant valve disease. Small to moderate, moderate circumferential pericardial effusion with fibrinous stranding which is adherent. No
echocardiographic evidence of tamponade.
Plan:
He presented with GI symptoms, dehydration, nausea vomiting and not taking his medications for few weeks including Eliquis. He appears weak and cachectic and tonight he was hypotensive. He is receiving IV fluids.
CT scan noted with abnormality in the pelvis that may be consistent with abscess/infection versus malignancy. In addition pulmonary emboli noted.
He denies chest pain. EKG stable. Echocardiogram with small to moderate, moderate pericardial effusion without echocardiographic evidence of tamponade. We spoke at great length and I spoke with his daughter in addition.
Plan at this time:
-Agree with IV fluids
-Pressor support if needed
-Panculture
-Broad-spectrum antibiotics
-Agree with stress dose steroids given history of rheumatoid arthritis and steroid use previous.
-Hospitalist service has consulted surgery regarding abnormality in pelvis which may be an abscess
-Supportive blood products given anemia for which he responded to packed red blood cells. Platelets as needed.
-Continue to hold all antihypertensive/rate control medications given low blood pressure
-Echocardiogram performed tonight with heart function stable ejection fraction 40%. Despite pulmonary emboli normal right ventricle. Small to moderate, moderate pericardial effusion with stranding but no echocardiographic evidence of tamponade.
Continue to follow. Continue supportive care.
-Thankfully no recurrence of atrial arrhythmias. Continue to monitor telemetry. EKG stable.
-At this time not a candidate for guideline directed medical therapy for heart failure with mildly reduced ejection fraction given hypotension.
-Defer care of pulmonary embolism to hematology/oncology, hospitalist and automatic pad making machine operator service. Tricky at this time given platelet count is 30,000. Repeat blood work pending.
-Cancer care per oncology.
I spoke with his daughter who is realistic about expectations. The patient however although they have met with palliative care does not seem to understand the gravity of his situation. I have given his daughter support. I will continue to discuss
with patient in addition. His daughter Arminda appreciated our discussion. Emotional support provided to the patient
40 minutes total critical care time.
Data Reviewed
-
EKG: Tracing Personally Visualized and interpreted
Radiology: Image Personally Visualized and interpreted and Report Reviewed by me
CT Scan: Image Personally Visualized and interpreted and Report Reviewed by me
Ultrasound: Image Personally Visualized and interpreted
Medical Tests (Nuc Med, Echo etc): Image Personally Visualized and interpreted and Report Reviewed by me
Labs: Labs Reviewed by me
Old Records: Reviewed
[2024-07-23] MEDS: NSS 1000 IV ×2 (18:45→23:21)
[2024-07-23] MEDS: SOLU-CORTEF 100 MG IV (18:45)
[2024-07-23] MEDS: MERREM 500 MG IV (18:46)
[2024-07-23] MEDS: STERILE WATER FOR INJECTION 10 ML IV (18:46)
--- NOTE | 2024-07-23 18:50 | PTCARENOTE ---
Patient received from the floor. No apparent signs of distress. C/o mild subjective, SOB,
--- NOTE | 2024-07-23 18:50 | PTCARENOTE ---
Patient received from the floor via bed accompanied by RN x 2. He is awake and alert, without apparent signs of distress. Denies pain, CP. Mild SOB but resps appear non labored. Placed on CM, SR 80s with BBB. SBP 85. Right SC PC accessed, CMP, CBC,
coags, Lactic acid drawn and BC x2 sets drawn peripherally. Skin care provided. Spine wound stage II and unstageable due to scabbed area and coccyx wound stage II--mepiplex dressings donned. Left heel red, mepiplex dressing. Left foot with 2nd and
3rd toes with abrasions, dressing donned to 2nd toe. Patient very cachectic with marked muscle wasting. Sats well on RA. Cardiology ADVERTISING COORDINATOR at bedside to assess, updated with patient clinical status. ECHO performed at bedside.
[2024-07-23 19:11] LABS: INR 1.59; PT 19.4 Sec (11.4-14.6)
[2024-07-23 19:12] LABS: APTT 51.1 Sec (23.4-35.0); Hematocrit 21.6 % (39.0-52.0); Hemoglobin 7.5 g/dL (13.0-18.0); Mean Corp Hgb Conc. 34.7 g/dL (33.0-37.0); Mean Corpuscular Hgb 32.2 pg (27.0-31.0); Mean Corpuscular Volume 92.7 fL (80.0-94.0); Mean Platelet Volume 11.1 fL (7.4-10.4); Platelet Count 28 10^3/uL (130-400); Red Blood Cell Count 2.33 10^6/uL (4.70-6.10); Red Cell Dist. Width 19.3 % (11.5-14.5); White Blood Cell Count 7.1 10^3/uL (4.8-10.8)
[2024-07-23 19:14] LABS: ALT (SGPT) < 10 U/L (0-50); AST (SGOT) 20 U/L (17-59); Albumin 1.7 g/dl (3.5-5.0); Alkaline Phosphatase 117 U/L (38-126); Blood Urea Nitrogen 17 mg/dl (9-20); Carbon Dioxide 27 mmol/L (22-30); Chloride 96 mmol/L (98-107); Estimated Creatinine Clearance 79 ml/min; Glucose 103 mg/dl (70-99); Lactic Acid 2.1 mmol/L (0.7-2.0); Potassium 3.7 mmol/L (3.5-5.1); Sodium 131 mmol/L (135-145); Total Bilirubin 0.8 mg/dl (0.2-1.3); Total Protein 4.5 g/dl (6.3-8.2); eGFR > 60.00
--- NOTE | 2024-07-23 19:24 | PTCARENOTE ---
Report endorsed to oncoming shift, questions answered.
[2024-07-23 19:34] LABS: Troponin I 0.013 ng/ml
[2024-07-23] MEDS: LR IV (19:46)
[2024-07-23] MEDS: PROTONIX IV 40 MG IV (19:50)
[2024-07-23] MEDS: NSS (PRESERVATIVE FREE) 10 ML IV (19:50)
--- NOTE | 2024-07-23 20:25 | W.PN.UPDATE ---
Update Note
Progress Note Update
1929- Follow up labs platelets trending down now 28, hgb 7.5. Discussed with Dr. Cannon, stand in, patient was non complaint at home with Eliquis the last 2 weeks vs Pulmonary embolisms from malignancy vs infectious etiology. At this time it
is felt that the bleeding risk outweighs the benefit and to hold on heparin gtt and re-evaluate lab work in the morning if hemoglobin and platelets are trending up. Patient at high risk for bleeding, will transfuse PRBC x1 unit. Plan possibly
tomorrow to consider placement of IVC filter if patient is still unable to be anticoagulated. Updated hospitalist Dr. Quinones and RN.
[2024-07-23] MEDS: CALCIUM GLUCONATE 100 IV (21:06)
[2024-07-23] MEDS: ZYPREXA ZYDIS (ORALLY DISINTEGRATING) PO (21:34)
--- NOTE | 2024-07-23 21:53 | PTCARENOTE ---
Received patient AAOx3, complaining of chronic back pain 11/24, tolerable level of pain for patient. Sinus oscar/normal sinus 50s-70s. BP soft, 70s-80s/50s-60s with MAP>65. +2 edema on left lower extremity. Normothermic, palpable pedal pulse on LLE
and radial pulses b/l. 99% on room air, lung sounds diminished throughout. No BM since admission, abdomen soft, hypoactive bowel sounds. Urinal to void. Foam on spine, sacrum, and left heel CDI. NSS ongoing per order. Norepinephrine gtt started per
order, maintaining MAP>65. 1 unit PRBCs onoging, calcium repleted. Right subcutaneous port and 2 PIVs inserted by IV team CDI, patent. Repositioned, call peraza within reach.
[2024-07-24] VITALS (63 sets, daily range): BP systolic 78–128; BP diastolic 53–95; PULSE 82–85; O2SAT 96; BMI 16.6
[2024-07-24] MEDS: SOLU-CORTEF 50 MG IV ×5 (00:14→23:52)
[2024-07-24] MEDS: MERREM 500 MG IV ×3 (00:14→11:59)
[2024-07-24] MEDS: STERILE WATER FOR INJECTION 10 ML IV ×4 (00:14→18:09)
--- NOTE | 2024-07-24 00:34 | PTCARENOTE ---
1 unit platelets given, titrating levo gtt as tolerated. Otherwise patient assessment unchanged from previous.
--- NOTE | 2024-07-24 01:35 | W.PN.SEPSIS ---
Sepsis
Vital Signs
Temp Pulse Resp BP Pulse Ox
96 F L 62 18 83/56 97
07/23/24 23:53 07/24/24 01:00 07/24/24 01:00 07/24/24 01:00 07/23/24 23:56
Physical Exam
Physical Exam:
A focused exam was performed after fluid resuscitation.
Capillary Refill
Bilateral Upper Extremity:
Vero Time: Less than 3 sec
Bilateral Lower Extremity:
Vero Time: Less than 3 sec
Pulse Evaluation
Bilateral Radial:
Pulse Evaluation: Present
Bilateral Dorsalis Pedis:
Pulse Evaluation: Present
[2024-07-24 02:09] LABS: Hematocrit 25.8 % (39.0-52.0); Hemoglobin 9.2 g/dL (13.0-18.0); Mean Corp Hgb Conc. 35.7 g/dL (33.0-37.0); Mean Corpuscular Hgb 32.1 pg (27.0-31.0); Mean Corpuscular Volume 89.9 fL (80.0-94.0); Mean Platelet Volume 10.6 fL (7.4-10.4); Platelet Count 49 10^3/uL (130-400); Red Blood Cell Count 2.87 10^6/uL (4.70-6.10); Red Cell Dist. Width 18.3 % (11.5-14.5); White Blood Cell Count 15.1 10^3/uL (4.8-10.8)
[2024-07-24 02:11] LABS: Troponin I < 0.012 ng/ml
[2024-07-24] MEDS: NSS 1000 IV ×3 (04:17→20:59)
[2024-07-24 04:42] LABS: Hemoglobin 9.5 g/dL (13.0-18.0); Mean Corp Hgb Conc. 35.2 g/dL (33.0-37.0); Mean Corpuscular Hgb 31.7 pg (27.0-31.0); Mean Platelet Volume 10.7 fL (7.4-10.4); Platelet Count 52 10^3/uL (130-400); Red Cell Dist. Width 18.5 % (11.5-14.5); White Blood Cell Count 17.7 10^3/uL (4.8-10.8)
[2024-07-24 04:53] LABS: Blood Urea Nitrogen 16 mg/dl (9-20); Carbon Dioxide 21 mmol/L (22-30); Chloride 102 mmol/L (98-107); Estimated Creatinine Clearance 92 ml/min; Glucose 101 mg/dl (70-99); Magnesium 1.5 mg/dl (1.6-2.3); Phosphorus 4.4 mg/dl (2.5-4.5); Sodium 132 mmol/L (135-145); eGFR > 60.00
[2024-07-24] MEDS: SYNTHROID PO (05:12)
--- NOTE | 2024-07-24 05:37 | PTCARENOTE ---
Patient assessment unchanged from previous, repositioned. Call peraza within reach.
[2024-07-24] MEDS: MAGNESIUM SULFATE 50 IV (06:39)
--- NOTE | 2024-07-24 06:48 | CON.GS ---
Consultation
-
Performing Provider: Haritha
Reason for Consultation: Portal venous gas/mesenteric venous gas
Medical History
-
Chief Complaint: Abdominal pain, nausea/vomiting/diarrhea
History of Present Illness:
Patient is a 68-year-old male with metastatic non-small cell lung cancer recently on chemoradiation who reports a 2-week history of nausea, diarrhea, anorexia and occasional vomiting. His symptoms did not resolve with supportive care so he
presented to the emergency department and was admitted on 07/22/2024.
He was started on a regular diet yesterday evening and acutely developed abdominal pain prompting CT imaging. CT imaging demonstrated severe emphysematous cystitis as well as portal venous gas within the left lobe of the liver and mesenteric venous
gas. Pulmonary embolism was seen as well.
This a.m. patient states that his abdominal pain has essentially resolved. Nausea resolved as well. He is thirsty and requesting drink. His last bowel movement was 2 days ago and diarrhea. Abdominal pain was generalized but greatest in the
epigastrium and right lower quadrant.
Past Medical History
Past Medical History: Other (Stage IIIb lung cancer, P A-fib, history of GI bleed due to gastric ulcer, DM2, COPD, chronic anemia, RA, hypertension, hyperlipidemia, hypothyroidism)
Past Surgical History: Other (Right AKA, previous right lower extremity peripheral bypass and angioplasties)
Social History
Tobacco: Former Smoker
Family History
Family History: Reviewed & Noncontributory
Allergies / Home Medications
Allergy/AdvReac Type Severity Reaction Status Date / Time
No Known Allergies Allergy Verified 07/22/24 10:05
�Medication �Instructions �Recorded �Confirmed �Type
bupropion HCl 200 mg tablet,12 hr 200 mg PO DAILY Mental Health 09/08/21 07/22/24 History
sustained-release (Wellbutrin SR)
gabapentin 600 mg tablet 600 mg PO HS Pain 09/08/21 07/22/24 History
aspirin 81 mg chewable tablet 81 mg PO DAILY Blood clot 01/16/23 07/22/24 History
prevention/tx
cyanocobalamin (vitamin B-12) 1,000 mcg PO DAILY Supplement 01/16/23 07/22/24 History
1,000 mcg tablet
atorvastatin 20 mg tablet 40 mg PO DAILY High Cholesterol 01/10/24 07/22/24 History
multivitamin 1 tab PO DAILY Supplement 01/10/24 07/22/24 History
metoprolol succinate 25 mg 12.5 mg PO DAILY Blood Pressure 04/18/24 07/22/24 History
tablet,extended release 24 hr
(Toprol XL)
golimumab 12.5 mg/mL intravenous 100 mg IV Q8W rheumatologic 05/14/24 07/22/24 History
solution (Simponi ARIA) condition
levothyroxine 150 mcg tablet 150 mcg PO DAILY Thyroid 05/14/24 07/22/24 History
(Synthroid)
loperamide 2 mg tablet 2 mg PO Q6HPRN PRN diarrhea 05/14/24 07/22/24 History
ondansetron HCl 8 mg tablet 8 mg PO [id number] PRN nausea 05/14/24 07/22/24 History
pantoprazole 40 mg tablet,delayed 40 mg PO DAILY Gastrointestinal 05/14/24 07/22/24 History
release (Protonix) Issue
prednisone 5 mg tablet 5 mg PO DAILYPRN PRN ra 05/14/24 07/22/24 History
inflammation
tramadol 50 mg tablet 50 mg PO TIDPRN PRN moderate pain 05/14/24 07/22/24 History
apixaban 5 mg tablet (Eliquis) 5 mg PO BID 30 days #60 tabs 05/16/24 07/22/24 Rx
lisinopril 2.5 mg tablet 2.5 mg PO DAILY #30 tabs 05/16/24 07/22/24 Rx
olanzapine 5 mg disintegrating 10 mg PO HS Mental Health/Anxiety 07/22/24 07/22/24 History
tablet
Review of Systems
-
History Source: Patient
All other systems: Negative unless noted
A 10 point review of systems was completed, and was negative except as per HPI.
Physical Exam
Vital Signs
Temp Pulse Resp BP Pulse Ox
97.4 F 61 11 100/63 96
07/24/24 03:36 07/24/24 06:30 07/24/24 06:30 07/24/24 06:30 07/24/24 06:30
07/22/24 07/23/24 07/24/24
06:59 06:59 06:59
Actual Weight 56.245 kg 60.2 kg
Body Mass Index (BMI) 16.6
Lab Results
07/24/24 04:21
07/24/24 04:21
WBC 17.7 10^3/uL (4.8-10.8) H 07/24/24 04:21
Hgb 9.5 g/dL (13.0-18.0) L 07/24/24 04:21
Hct 27.0 % (39.0-52.0) L 07/24/24 04:21
Plt Count 52 10^3/uL (130-400) L 07/24/24 04:21
Abs Immat Gran (auto) 0.7 10^3/uL (0-0.05) H 07/22/24 10:31
Neutrophils % 86.5 % (42.2-75.2) H 07/22/24 10:31
Physical Exam
General: Other (Comfortably lying in hospital bed in ICU. Pleasant and participatory with history taking. Cachectic and chronically ill-appearing.)
HEENT: Normocephalic and Anicteric
Respiratory: Non Labored Respirations
Cardiac: Regular Rhythm
GI: Soft, Non Tender, Non Distended and Other (Right femoral surgical scar)
Skin: Warm
Neuro: AO x 3
Psych: Calm
Data Reviewed
-
CT Scan: Image Personally Visualized and interpreted, Report Reviewed by me, Discussed with Physician and Discussed with Patient
Assessment / Plan
-
Assessment/plan: 68-year-old male with stage IIIb NSCLC initially admitted with acute on chronic anemia, thrombocytopenia and failure to thrive.
Severe emphysematous cystitis seen on CT imaging yesterday evening as well as portal venous gas and areas of mesenteric venous gas. Additional findings included pulmonary embolism and a large soft tissue mass within the right inferior pubic rami
likely reflective of metastatic lesion.
With regards to the portal venous gas and mesenteric venous gas there does not appear to be any significant small bowel thickening, mesenteric edema, no pneumatosis intestinalis involving stomach, small bowel or colon. No evidence of bowel
obstruction or significant signs of ileus. No wall significant thickening involving the colon. Imaging of the GI tract is unremarkable otherwise. Pt reports no diarrhea in last 2 days and no melena or hematochezia
Abdominal examination this a.m. is without any tenderness and patient denies abdominal pain that he was experiencing yesterday after dinner. No strong clinical signs to suggest bowel compromise or progressive/irreversible bowel ischemia. Recommend
continued expectant management of the GI viscera. No indications for emergent/urgent surgical intervention.
Suspect portal venous gas and mesenteric venous gas may be reflective of severity of emphysematous cystitis and possible secondary gas producing bacteremia - blood cultures pending.
In further discussions with patient he states that he likely would not pursue surgery even if indicated due to suspected bowel compromise given his overall medical health and comorbidities.
From surgical perspective continue supportive care
Okay for sips of clears/ice chips but would not advance diet until further recovery from acute illness.
Defer to primary service management of emphysematous cystitis
--- NOTE | 2024-07-24 08:00 | PTCARENOTE ---
Patient received, care assumed. Currently on 1mcg/kg/hr of Levophed. BP noted 107/75, Levophed off. RFA #22 site leaking when flushed, dc'd, catheter intact. Patient without c/o pain, no N/V, no CP or SOB. Skin care provided. SR 70s on CM with 1st
degree AVB and BBB, frequent pac's. Hypothermic with temp 93.6F orally. Burton david donned. Rectal thermometer placed, 97F rectal temp. Dr. Cannon made aware. sats 97% on RA.
[2024-07-24] MEDS: NSS (PRESERVATIVE FREE) 10 ML IV ×2 (08:04→20:42)
[2024-07-24] MEDS: PROTONIX IV 40 MG IV ×2 (08:04→20:42)
--- NOTE | 2024-07-24 09:00 | PTCARENOTE ---
Dr Paulino at bedside to assess. Updated with patient clinical status.
--- NOTE | 2024-07-24 09:01 | W.PN.HOSP.TC ---
Today's Communication/Plan
-
see bold
Assessment / Plan
Assessment / Plan
HPI: 68-year-old male with a past medical history of metastatic lung cancer status post chemo and radiation, paroxysmal atrial fibrillation on Eliquis, diabetes, rheumatoid arthritis, anemia, COPD, hypertension, hyperlipidemia, and hypothyroidism
presents with fatigue and shortness of breath for 2-3 weeks. Patient states he finished his chemo and radiation treatments 3 weeks ago. About a week afterwards, he started having nausea, vomiting, diarrhea, and poor oral intake. Last loose stool
was 2-3 days ago. No abdominal pain. No chest pain.
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
Appreciate wind turbine engineer input, status post Levophed
Discussed with general surgery, gallbladder is completely normal
Discussed with radiology, there is no cholecystitis
Urine cultures growing Klebsiella, sensitive to Rocephin
Continue stress dose IV steroids, change IV Merrem to Rocephin, blood cx NTD, repeat blood cx pending
Gentle IV fluids, patient has low albumin and will third space
#Stage III NSCLC, now stage IV with metastasis to the bone
#Cachexia
#Failure to thrive
#Severe protein calorie malnutrition
Oncology/palliative care following
Patient agreeable to hospice consult 07/24
Patient also agreeable to changing CODE STATUS to DNR 07/24
#No pulmonary embolism
Patient has not been taking his Eliquis for several weeks secondary to nausea/vomiting
Appreciate oncology input, started on heparin drip 07/24
#New small-moderate pericardial effusion
Suspicious for malignant pericardial effusion
Appreciate cardiology input, rec repeat echo on Saturday 07/28
#Paroxysmal atrial fibrillation
Currently on IV heparin drip for PE, holding metoprolol secondary to soft blood pressure
#Abdominal pain
#Portal venous gas and mesenteric venous gas
Appreciate general surgery input, suspect portal venous gas and mesenteric venous gas may be reflective of severity of emphysematous cystitis and possible secondary gas producing bacteremia
There is no pneumatosis intestinalis, no evidence of bowel obstruction or ileus. There is no cholecystitis either
Continue medical management as per general surgery, they have signed off
Continue clear liquid diet for now
#Symptomatic anemia
#Thrombocytopenia
Hemoglobin 9.5 today, he has received a total of 3 units of packed red blood cells
No evidence of iron deficiency with ferritin >1000. Oncology started folic acid 07/23
Appreciate oncology input, follow-up flow cytology and BCR/ABL
He may need bone marrow biopsy if cytopenias remain unexplained and don't improve
#Nausea/vomiting
Discontinue Zofran/Compazine secondary to prolonged QTc
Phenergan p.o. as needed, Tigan IM as needed
#Prolonged QTc
Discontinue Zofran/Compazine
Monitor EKG daily
#Loose stools
Last bowel movement 2-3 days ago, loose per patient
#Hypovolemic hyponatremia
Improved with IV fluids, continue
#Hypomagnesemia
Replete as needed
#History of diabetes, no longer diabetic
Hemoglobin A1c 5.3
#Anxiety/depression
Continue olanzapine
Hold Wellbutrin secondary to prolonged QTc
#Hypothyroidism
Continue Synthroid
DVT prophylaxis�IV heparin drip
Full code
Updated family at bedside 07/24
Total time spent to see the patient on the floor, examine the patient, review data and lab results, discuss treatment plan with patient, nursing staff around 60 minutes.
Physical Exam
General: No Apparent Distress and Other (Thin, cachectic, appears chronically ill)
HEENT: NormoCephalic, Anicteric, Moist mucous membranes and Atraumatic
Respiratory: Clear
Cardiac: S1/S2 and regular rate/rhythm
GI: Soft, Non Tender, Non Distended and Normal Bowel Sounds
Musculoskeletal: Edema, Left Lower Extremity and Other (Right AKA noted)
Skin: Warm
Neuro: Awake, Alert and Oriented
Psych: Calm
Anticipated Discharge: > 48 hours
Subjective/Interval History
-
Date of Service: July 24, 2024
Yesterday's event noted. Patient reports feeling better today. Abdominal pain resolved. No chest pain, no shortness of breath. No fever, no vomiting.
Objective Data
-
Labs:
Laboratory Results
07/24/24 07/24/24
01:38 04:21
WBC 15.1 H 17.7 H
Hgb 9.2 L D 9.5 L
Hct 25.8 L 27.0 L
Plt Count 49 L D 52 L
Sodium 132 L
Potassium 4.0
Chloride 102
Carbon Dioxide 21 L
BUN 16
Creatinine 0.6 L
Glucose 101 H
Calcium 7.0 L
Vital Signs:
Vital Signs
Temp Pulse Resp BP Pulse Ox
96.9 F L 61 11 100/63 96
07/24/24 08:25 07/24/24 06:30 07/24/24 06:30 07/24/24 06:30 07/24/24 06:30
I&O
07/23/24 07/24/24 07/25/24
06:59 06:59 06:59
Intake Total 500 / 500 2918.8 / 2918.8
Output Total 575 / 575
Balance 500 / 500 2343.8 / 2343.8
--- NOTE | 2024-07-24 09:20 | W.PN.CARDCBS ---
Today's Communication / Plan
-
Continue antibiotics, IV fluids and pressors as needed
Cultures pending
Rhythm stable
Likely starting IV heparin for pulmonary embolism and known atrial arrhythmias with stroke (04/2024)
Repeat echo on Sunday or if any sudden change.
Pericardial effusion noted to be small to moderate, moderate may be malignant
Impression / Plan
-
PCP: Dr. Castellano
Offline Editor: Dr. Aponte
Impression:
Hypotension
Likely sepsis
Emphysematous cystitis
Moderate pericardial effusion-unknown cause may be malignant
Mass in abdomen possibly metastatic
Pulmonary embolism 07/23/[address] scan (patient had not been taking Eliquis for a few weeks because of GI symptomatology)
Anemia
Thrombocytopenia
Recent acute/subacute R parietal/frontal infarct on MRI of brain 05/14/24
Cardiomyopathy, EF 35-40% by echo 05/14/24
Carotid artery disease
Total occlusion of R ICA, 50% stenosis L ICA by CTA head/neck 05/14/24Stage III NSCLC
Recently started chemo (Carboplatin and paclitaxel) 05/02/24 and radiation 4CAD
STRATEGIC PLANNER of circ by cath 01/06/2022 PVD
s/p angioplasty and stenting of left common iliac artery and left external iliac artery 01/18/2024
s/p R AKA
Paroxysmal atrial fibrillation
Paroxysmal atrial tachycardia
h/o GIB due to gastric ulcer 2020
DM2
COPD
Chronic Anemia
RA
HTN
HLD
Hypothyroidism
LHC 01/06/2022: STRATEGIC PLANNER of distal circumflex. Nonobstructive disease in LAD. EF 40%.
Echo 12/30/2020: EF 50 to 55%, mild concentric LVH, mild basal to mid inferolateral hypokinesis, stage I diastolic dysfunction, trace TR, estimated PAP 40 mmHg
Echo 05/14/2024: EF 35 to 40%, global hypokinesis with regional variability, mild concentric LVH, stage I diastolic dysfunction, aortic sclerosis without stenosis
Echocardiogram preliminary 07/23/2024 Limited study: Ejection fraction 40%. Normal right ventricle. No significant valve disease. Small to moderate, moderate circumferential pericardial effusion with fibrinous stranding which is adherent. No
echocardiographic evidence of tamponade.
Plan:
He presented with GI symptoms, dehydration, nausea vomiting and not taking his medications for few weeks including Eliquis. Rhythm remains sinus. He was transferred to intensive care unit 07/23/2024 with hypotension. Sepsis likely the etiology, CT
scan with emphysematous cystitis. Being seen by surgery. Urine with Klebsiella. Broad-spectrum antibiotics. He is hypotensive and remains on warming blanket. Being treated for infection and possible adrenal insufficiency.
Metastatic cancer status post chemo/radiation.
Blood pressure improved with IV fluids and hydration.
On CT scan pulmonary embolism noted. Last night platelet count 30,000. Now 52,000 after platelets. Currently not on anticoagulation.
He denies chest pain. EKG stable. Echocardiogram with small to moderate, moderate pericardial effusion without echocardiographic evidence of tamponade. We spoke at great length and I spoke with his daughter in addition.
Plan at this time:
-Agree with IV fluids
-Pressor support if needed, was on briefly overnight now discontinued
-Further cultures pending
-Broad-spectrum antibiotics
-Agree with stress dose steroids given history of rheumatoid arthritis and steroid use previous.
-Surgery consulted and abdomen/pelvis abnormality with probable metastatic lesion. In addition to changes consistent with emphysematous cystitis
-Supportive blood products given anemia for which he responded to packed red blood cells. Platelets as needed.
-Continue to hold all antihypertensive/rate control medications given low blood pressure
-Echocardiogram performed 07/23 with heart function stable ejection fraction 40%. Despite pulmonary emboli normal right ventricle. Small to moderate, moderate pericardial effusion with stranding but no echocardiographic evidence of tamponade.
Continue to follow. Continue supportive care. Patient will be starting heparin for pulmonary embolism (previously on Eliquis for atrial arrhythmias in the setting of stroke 04/2024). Would do repeat quick look echo if any hemodynamic changes that
are sudden or on Sunday.
-Thankfully no recurrence of atrial arrhythmias. Continue to monitor telemetry. EKG stable.
-At this time not a candidate for guideline directed medical therapy for heart failure with mildly reduced ejection fraction given hypotension.
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 Likely heparin to start.
-Cancer care per oncology.
I spoke with nursing, oncology, family at the bedside and daughter Arminda on the phone. They are realistic about expectations. Patient has met with palliative care.
He still prefers aggressive management. Continuing discussions regarding end-of-life decisions
40 minutes total critical care time.
Progress Note - Offline Editor
Subjective
Date of Service: July 24, 2024
He is feeling better than yesterday. He is not nauseated. He denies chest pain.
Objective
Labs:
07/24/24 04:21
07/24/24 04:21
Labs
Hgb 9.5 g/dL (13.0-18.0) L 07/24/24 04:21
Hct 27.0 % (39.0-52.0) L 07/24/24 04:21
Plt Count 52 10^3/uL (130-400) L 07/24/24 04:21
PT 19.4 Sec (11.4-14.6) H 07/23/24 18:35
INR 1.59 07/23/24 18:35
APTT Cancelled 07/23/24 18:58
Sodium 132 mmol/L (135-145) L 07/24/24 04:21
Potassium 4.0 mmol/L (3.5-5.1) 07/24/24 04:21
BUN 16 mg/dl (9-20) 07/24/24 04:21
Creatinine 0.6 mg/dL (0.7-1.3) L 07/24/24 04:21
Glucose 101 mg/dl (70-99) H 07/24/24 04:21
Troponins
07/23/24 07/24/24
18:58 01:38
Troponin I 0.013 < 0.012
Vital Signs and I&O:
Vital Signs
Temp Pulse Resp BP Pulse Ox
96.9 F L 61 11 100/63 96
07/24/24 08:25 07/24/24 06:30 07/24/24 06:30 07/24/24 06:30 07/24/24 06:30
Vital Signs
Temp Pulse Resp BP Pulse Ox
96.9 F L 61 11 100/63 96
07/24/24 08:25 07/24/24 06:30 07/24/24 06:30 07/24/24 06:30 07/24/24 06:30
Intake & Output
07/22/24 07/23/24 07/24/24 07/25/24
06:59 06:59 06:59 06:59
Intake Total 500 / 500 2918.8 / 2918.8
Output Total 575 / 575
Balance 500 / 500 2343.8 / 2343.8
Physical Exam
Physical Exam
General: Thin man laying in bed
Heart: Non displaced PMI, RRR, no murmurs, No S3, S4, no rubs.
Lungs: Coarse anterior breath sounds
Extremities: No clubbing, cyanosis or edema bilaterally.
Neuro: Grossly nonfocal, awake, alert and oriented x3..
--- NOTE | 2024-07-24 09:29 | W.PN.ONC2 ---
Today's Communication / Plan
-
daily CBC
Check DIC panel. Cryo prn fibrinogen <150 if bleeding, FFP prn INR >1.7 if bleeding
transfuse platelets prn <20, prn <50 if bleeding
monitor for bleeding
treat acute PE with heparin gtt, no bolus with platelet transfusion prn <50,000 while on anticoagulation
Unclear role of IVC filter with LE US negative for DVT.
PET/CT upon discharge to further evaluate for metastasis. Although PS will need to improve to be eligible for additional systemic antineoplastic options
Sepsis management per primary service
Impression
Impression
stage IIIB lung cancer, s/p chemo/RT which finished 06/20/24, unfortunately his CT CAP 07/23 suspicious for new metastasis to pelvis
symptomatic anemia, thrombocytopenia. s/p 3 unit prbc, last 07/23. s/p 1 platelet transfusion 07/23
Leukocytosis w/ immature granulocytes
N/V (brain MRI 05/14/24 showed no MACHINE STUFFER AUTOMATIC mets)
Plan
Plan
Sepsis on pressors, hydrocortisone, and IV abx
Thrombocytopenia with platelet count 30k is quite atypical based on the patient's recent chemoradiation, however, may be consumptive in setting of infection/sepsis
Awaiting flow cytometry and added BCR/ABL as differential seems to show predominantly granulocytic forms
Prior anemia w/ u was unrevealing.
No evidence of iron deficiency with ferritin >1000. Continue folic acid
emphysematous cystitis
moderate pericardial effusion, cardiomyopathy EF 35-40%
Acute pulmonary emboli, no DVT
>50% of visit was spent on education, counseling, and coordination of care. - 35min
Subjective/Objective
Subjective
Rectal temp 96.9, hypotension overnight improved, no hypoxia
denies bleeding
denies pain/nausea
Vital Signs:
Vital Signs
Temp Pulse Resp BP Pulse Ox
96.9 F L 61 11 100/63 96
07/24/24 08:25 07/24/24 06:30 07/24/24 06:30 07/24/24 06:30 07/24/24 06:30
Lab Results:
Laboratory Data
WBC 17.7 10^3/uL (4.8-10.8) H 07/24/24 04:21
Hgb 9.5 g/dL (13.0-18.0) L 07/24/24 04:21
Plt Count 52 10^3/uL (130-400) L 07/24/24 04:21
PT 19.4 Sec (11.4-14.6) H 07/23/24 18:35
INR 1.59 07/23/24 18:35
APTT Cancelled 07/23/24 18:58
eGFR > 60.00 07/24/24 04:21
Physical Exam
General: Appears Chronically Ill
HEENT: Negative Jaundice
Cardiology: Normal Sinus Rhythm
Pulmonary: Clear
GI: Soft
Musculoskeletal: right BKA
Neurology: Non Focal
Skin: Warm and Dry
Psych: Calm
--- NOTE | 2024-07-24 10:15 | W.PN.PAL2 ---
Today's Communication
-
Met With Mr. Larios. Son onesimo and patient's ex- at bedside.
reviewed recent clinical changes and findings from CT scan : PE, Moderate pericardial effusion, bilateral pleural effusions, Air in liver, Large 7.6 cm mass near the right inferior pubic ramus, suspicious for large metastatic lesion. R
Given the above findings, and likely cancer progression, patient agreeable to meet with hospice team today with goal of home with hospice, will need additional caregivers in the home.
Updated attending physician, order for hospice to be placed
Assessment / Plan
-
Assessment/Plan:
Hospice Referral
Reason for Admission
Illness Course/HPI
Adam is a 68 y/o male with IV lung cancer who completed chemo therapy and radiation to the ribs about one month ago. He is s/p Right BKA approx 3 years ago. Admitted to hospital because of new finding of symptomatic anemia, hgb 5.9 and Low
platelets
He joined the outpatient palliative care program Jun 27, 2024.
Palliative care consult today to discuss goals of care of care.
Functional Status
He lives by himself in an appartment. He has caregivers 16-20 hours per week. At his baseline he is able to transfer out of bed into a chair, and even has a specialized car equiped with hand control brakes.
In the past month due to severe diarrhea, nausea and vomiting, he has become quite weak, but was starting on olanzapine which helped control symptoms (started approx 2 weeks ago), diarrhea is also better at present time.
Goals of Care Discussion
-
Patient able to participate in discussion at time of visit: Yes
Patient's Information Preferences: Fully Involved/Able to Participate
Patient Goals
patient interested in hospice
Objective Data
-
Objective Data:
Vital Signs
Temp Pulse Resp BP Pulse Ox
96.9 F L 84 11 100/65 97
07/24/24 08:25 07/24/24 09:30 07/24/24 09:30 07/24/24 09:30 07/24/24 09:15
Laboratory Results
07/24/24 04:21
PT 19.4 Sec (11.4-14.6) H 07/23/24 18:35
INR 1.59 07/23/24 18:35
APTT Cancelled 07/23/24 18:58
Hemoglobin A1c 5.3 % (4.0-5.6) 07/22/24 10:31
Total Protein 4.5 g/dl (6.3-8.2) L 07/23/24 18:35
Albumin 1.7 g/dl (3.5-5.0) L 07/23/24 18:35
Prealbumin 3.8 mg/dl (17.6-36.0) L 07/23/24 05:35
Urine Color Yellow 07/22/24 18:10
Urine Clarity Clear (Clear) 07/22/24 18:10
Urine pH 6.0 (5.0-9.0) 07/22/24 18:10
Ur Specific [place] 1.020 (<1.030) 07/22/24 18:10
Urine Ketones Negative (Negative) 07/22/24 18:10
Urine Bilirubin 2+ (Negative) A 07/22/24 18:10
Palliative Performance Scale
Palliative Performance Scale:
PPS Level Ambulation Activity & Evidence of Disease Self Care Intake Conscious Level
100% Full Normal Activity & Work; Full Intake Full
No Evidence of Disease
90% Full Normal Activity & Work; Full Normal Full
Some Evidence of Disease
80% Full Normal Activity with Effort Full Normal or Full
Some Evidence of Disease Reduced
70% Reduced Unable Normal Job/Work Full Normal or Full
Significant Disease Reduced
60% Reduced Unable Hobby/Housework Occasional Normal or Full or Confusion
Significant Disease Assistance Reduced
50% Mainly Sit/Lie Unable to do Any Work Considerable Normal or Full or Confusion
Extensive Disease Assistance Req'd Reduced
40% Mainly in Bed Unable to do Most Activity Mainly Assistance Normal or Full or Drowsy;
Extensive Disease Reduced +/- Confusion
30% Totally Bed Unable to do Any Activity Total Care Normal or Full or Drowsy;
Bound Extensive Disease Reduced +/- Confusion
20% Totally Bed Bound Unable to do Any Activity Total Care Minimal to Full or Drowsy;
Extensive Disease Sips +/- Confusion
10% Totally Bed Bound Unable to do Any Activity Total Care Mouth Care Drowsy or Coma;
Extensive Disease Only +/- Confusion
0%
PPS Score Level:
[2024-07-24 11:04] LABS: INR 1.27; PT 16.4 Sec (11.4-14.6)
[2024-07-24 11:05] LABS: Fibrinogen 232 MG/DL (199-459)
[2024-07-24 11:06] LABS: APTT 44.9 Sec (23.4-35.0)
[2024-07-24 11:08] LABS: D-Dimer 1.45 ug/mlFEU (0.00-0.50)
--- NOTE | 2024-07-24 11:13 | HOSPNOTE ---
Spoke with daughter and discussed hospice and the philosophy. The daughter would like to talk with family this weekend and make arrangements and determine if going back to the patient's home on hospice is feasible. I will meet with the family on
Saturday 07/28 to discuss. If home is not an option then placement will be needed with hospice. More information to follow. The daughter does realize patient may move out of ICU to a med/surg floor while awaiting a decision.
--- NOTE | 2024-07-24 11:28 | CON.INTV ---
Addendum entered and electronically signed by Lamin De Jesus MD 07/24/24 18:04:
Correction to my note. 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
Pneumonbilia is present.
-
Original Note:
Consultation
Consultation Request
Date/Time Consultation Requested: 07/24/2024
Date/Time Consultation Performed: 07/24/2024
Requesting Provider: Dr. Quinones
Performing Provider: Dr. Lamin Cannon
Reason for Consultation: Septic shock/pulmonary embolus
Medical History
-
History of Present Illness:
68-year-old man with significant past medical history of metastatic lung cancer status post chemotherapy and radiation, paroxysmal atrial fibrillation on anticoagulation, type 2 diabetes, rheumatoid arthritis, anemia, COPD, hypertension,
hyperlipidemia and hypothyroidism that came to the hospital complaining of shortness of breath for the last 2 to 3 weeks.
Last round of chemotherapy/radiation was 3 weeks ago.
Patient feels tired, weak, decreased p.o. intake. He has been losing weight over time.
Does report some loose stools.
Evaluation including a CT of the chest demonstrated right-sided pulmonary embolism.
Echocardiogram demonstrated pericardial effusion. Cardiology deemed not hemodynamically significant.
Right ventricle was preserved.
There is evidence for possible metastatic disease in the pelvis.
He was found to have emphysematous cholecystitis with pneumobilia.
No indication for surgery per surgery.
Patient required Levophed despite IV fluid resuscitation.
Patient is chronically on low-dose prednisone for rheumatoid arthritis. Stress dose of steroids started as well.
This morning vasopressor requirements improved.
Oxygen has been weaned off.
Anticoagulation was held overnight due to thrombocytopenia, petechia and anemia.
This morning at rest patient denies any shortness of breath or chest pain. Overall he feels slightly better.
Contemplating hospice care
Past Medical History
Past Medical History: Other (See assessment and plan)
Social History
Tobacco: Former Smoker
Alcohol: Occasional
Drug: None
Living: Alone
Family History
Family History: Reviewed & Not Pertinent
Allergies / Home Medications
Allergies
Allergy/AdvReac Type Severity Reaction Status Date / Time
No Known Allergies Allergy Verified 07/22/24 10:05
Home Medications
�Medication �Instructions �Recorded �Confirmed �Last Taken �Type
bupropion HCl 200 mg tablet,12 hr 200 mg PO DAILY Mental Health 09/08/21 07/22/24 2 Weeks Ago History
sustained-release (Wellbutrin SR) ~07/08/24
gabapentin 600 mg tablet 600 mg PO HS Pain 09/08/21 07/22/24 2 Weeks Ago History
~07/08/24
aspirin 81 mg chewable tablet 81 mg PO DAILY Blood clot 01/16/23 07/22/24 2 Weeks Ago History
prevention/tx ~07/08/24
cyanocobalamin (vitamin B-12) 1,000 mcg PO DAILY Supplement 01/16/23 07/22/24 2 Weeks Ago History
1,000 mcg tablet ~07/08/24
atorvastatin 20 mg tablet 40 mg PO DAILY High Cholesterol 01/10/24 07/22/24 2 Weeks Ago History
~07/08/24
multivitamin 1 tab PO DAILY Supplement 01/10/24 07/22/24 2 Weeks Ago History
~07/08/24
metoprolol succinate 25 mg 12.5 mg PO DAILY Blood Pressure 04/18/24 07/22/24 2 Weeks Ago History
tablet,extended release 24 hr ~07/08/24
(Toprol XL)
golimumab 12.5 mg/mL intravenous 100 mg IV Q8W rheumatologic 05/14/24 07/22/24 Unknown History
solution (Simponi ARIA) condition
levothyroxine 150 mcg tablet 150 mcg PO DAILY Thyroid 05/14/24 07/22/24 2 Weeks Ago History
(Synthroid) ~07/08/24
loperamide 2 mg tablet 2 mg PO Q6HPRN PRN diarrhea 05/14/24 07/22/24 2 Weeks Ago History
~07/08/24
ondansetron HCl 8 mg tablet 8 mg PO [id number] PRN nausea 05/14/24 07/22/24 Unknown History
pantoprazole 40 mg tablet,delayed 40 mg PO DAILY Gastrointestinal 05/14/24 07/22/24 2 Weeks Ago History
release (Protonix) Issue ~07/08/24
prednisone 5 mg tablet 5 mg PO DAILYPRN PRN ra 05/14/24 07/22/24 Unknown History
inflammation
tramadol 50 mg tablet 50 mg PO TIDPRN PRN moderate pain 05/14/24 07/22/24 05/14/24 History
apixaban 5 mg tablet (Eliquis) 5 mg PO BID 30 days #60 tabs 05/16/24 07/22/24 2 Weeks Ago Rx
~07/08/24
lisinopril 2.5 mg tablet 2.5 mg PO DAILY #30 tabs 05/16/24 07/22/24 2 Weeks Ago Rx
~07/08/24
olanzapine 5 mg disintegrating 10 mg PO HS Mental Health/Anxiety 07/22/24 07/22/24 2 Weeks Ago History
tablet ~07/08/24
Review of Systems
-
History Source: Patient
All other systems: Negative unless noted
Vitals / Labs / Diagnostic Testing
Vital Signs
Temp Pulse Resp BP Pulse Ox
96.9 F L 84 11 100/65 97
07/24/24 08:25 07/24/24 09:30 07/24/24 09:30 07/24/24 09:30 07/24/24 09:15
Lab Data
07/24/24 04:21
Laboratory Results
07/23/24 07/23/24 07/24/24
18:35 18:58 10:33
PT 19.4 H 16.4 H
INR 1.59 1.27
APTT 51.1 H Cancelled 44.9 H
Microbiology
07/22/24 18:10 Urine Urine Culture - Final
Klebsiella oxytoca
07/22/24 16:37 Blood/Venous Blood Culture - Preliminary
No Growth in 24 hours- Final report to follow
07/22/24 13:57 Nose MRSA Screen - Final
No Methicillin Resistant Staphylococcus aureus isolated.
Diagnostic Testing:
Physical Exam
-
HEENT: Normocephalic
Cardiovascular: S1/S2
Respiratory: Rales and Non-Labored Respirations
GI: Soft and Non Distended
Neurology: Awake, Alert, Oriented and No Motor Deficits
Skin: Warm
General: Comfortable and Other (Cachectic)
Assessment
-
68-year-old man with metastatic lung cancer status post chemoradiation 3 weeks ago. Admitted with shortness of breath. Found to have emphysematous cholecystitis with pneumobilia, septic shock, possible UTI as well. Acute or subacute pulmonary
embolism. Transferred to the critical care unit for vasopressor requirement 07/23/2024 over
Septic shock due to emphysematous cholecystitis with pneumobilia
Possible UTI-Klebsiella oxytocin,
Suspect subacute right sided pulmonary embolism
CT chest: Reviewed showed moderate burden right-sided pulmonary embolism. No evidence for RV dysfunction.
Pericardial effusion: Not hemodynamically significant
Possibly malignant
Right pelvis soft tissue mass possibly metastatic
Anemia/thrombocytopenia-due to underlying cancer
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
Conditions present prior admission:
Metastatic lung cancer status post chemoradiation 3 weeks ago last session.
Paroxysmal atrial fibrillation
Chronically on Eliquis but patient not compliant
Type 2 diabetes
COPD
Chronic anemia
Rheumatoid arthritis on chronic prednisone therapy
Hypertension
Hyperlipidemia
Hypothyroidism
Assessment and plan:
Critically ill, multiple issues going on-require vasopressors/high risk of bleed severe thrombocytopenia.
-
More pressing septic shock likely due to emphysematous cholecystitis.
Surgical correspondence reviewed at this point conservative management
Continue antibiotics-meropenem
Follow culture likely has UTI-Klebsiella oxytoca-07/22/2024
-
Levophed has been discontinued this morning.
Continue stress dose of steroids-patient chronically on prednisone for rheumatoid arthritis
Continue to monitor
Status post IV fluid resuscitation-discontinue IV fluid after this last bag.
Renal function normal.
Will follow urinary output
Initial lactic acid was 2 but at this point patient of vasopressors.
-
Acute/subacute pulmonary embolism-no RV dysfunction on echocardiogram.
Patient does not require oxygen
Not tachycardic.
No longer hypotensive
Discussed with hematology this morning-will start heparin without a bolus. Follow PTT will keep it in the lower range.
Will place IVC filter only if unable to anticoagulate, unclear benefit with negative lower extremity Dopplers at this point.
Monitor for bleeding.
Repeat CBC later. If platelet count lower than 50 then discontinue and consider platelet transfusion.
-
Malignant.Pericardial effusion suspected, not hemodynamically significant
Cardiology following
Currently rhythm is stable
Echo on as-needed basis to follow-up on pericardial effusion
-
Patient contemplating hospice. Consult has been placed. Palliative care following-Case was discussed this morning.
-
Diet as able
Head of the bed elevation for aspiration precaution
-
Poor prognosis
DNR status
-
Critical care statement: A total of 45 minutes of critical care time was provided for this patient today. This includes management of unstable vital signs, evaluation of the patient at bedside, reviewing the patient's pertinent medical records
including ventilator settings, arterial blood gases, radiographs, microbiology, laboratory evaluations and discussion with primary team, critical care nursing, and respiratory therapy.
--- NOTE | 2024-07-24 11:41 | PTCARENOTE ---
Dr Stephens at bedside to assess patient, updated with patient clinical status. DNR was discussed at length with patient and family, questions answered. Family to discuss
--- NOTE | 2024-07-24 12:00 | PTCARENOTE ---
Essentially no change in patient assessment. Occasional loose NPC noted. No change on CM. Patient denies offer of pain med with c/o occasional back discomfort. HNV since start of shift. Patient denies urge.
[2024-07-24] MEDS: HEPARIN 25000 UNITS/250 ML IV (12:13)
--- NOTE | 2024-07-24 12:15 | PTCARENOTE ---
Heparin gtt started per order, 1100units per hour. Next PTT due at 1815. Patient instructed with regards to reason for medication and bleeding risks. Verbalized understanding.
--- NOTE | 2024-07-24 14:26 | CM ---
CM following re: discharge planning.
Reviewed pt's chart, met with pt and pt's daughter Arminda at bedside.
CM consult noted this morning and per pt's choice pt referred to hospice this morning. Per lpn rn hospice, both pt and his daughter will decide on Sunday regarding hospice care at home or at a chcf.
PT and OT evaluations noted - SNF level of care recommended. Both pt and her daughter are aware and they feel that going to a SNF for a short term rehab with a transition to hospice might be the best option. Both pt and his family deciding. Referral
to [facility] SNF and [facility] SNF noted.
D/C plan: most likely preferred SNF for a short term rehab and transitioning for hospice care.
CM will follow with discharge plan updates as hospitalization progresses
--- NOTE | 2024-07-24 15:19 | WOUNDNOTE ---
LEFT SECOND TOE
--- NOTE | 2024-07-24 15:19 | WOUNDNOTE ---
[facility] RN NOTE: Reviewed chart and met with patient. Per chart review a palliative care has seen patient and family and patient are awaiting hospice meeting. Spoke to UDAY Jensen regarding stage 2 PI of spine and sacrum. Upon assessment both spine and
sacrum have small stage 2 PI that were appropriately dressing with border foam. An air cushion was placed behind patients back for additional off-loading. Patient has stage 1 to left heel and silicone border foam maintained. Left heel off-loaded on
pillow. Left second with toe chronic non-healing wound. Patient states the wound occurred due to a traumatic event and patient follows with Dr. Swenson. The wound was cleaned and local wound care provided. Patient requires assistance turning in bed.
Per chart review patient has a poor prognosis and hospice is being discussed. Wounds may worsen and new wounds may develop even with optimal care.
--- NOTE | 2024-07-24 15:29 | CHAP ---
Emotional and spiritual support provided for Mr. Knutsonman. Will follow as able.
--- NOTE | 2024-07-24 16:00 | PTCARENOTE ---
Notified Dr. Stephens and Dr. Cannon that patient HNV since 0200. Bladder scan performed and 52ml noted in bladder. Patient denies urge to void. At 1545, patient voided 125ml of dark eva urine. Otherwise, no significant change in patient assessment.
Pastoral care visited. Wound care nurse assessed patient. Emotional support and encouragement provided to patient as needed.
[2024-07-24 16:18] LABS: Number Of Markers 26 markers; Source Blood
[2024-07-24 16:28] LABS: Hematocrit 26.8 % (39.0-52.0); Hemoglobin 9.2 g/dL (13.0-18.0); Mean Corp Hgb Conc. 34.3 g/dL (33.0-37.0); Mean Corpuscular Hgb 31.3 pg (27.0-31.0); Mean Corpuscular Volume 91.2 fL (80.0-94.0); Mean Platelet Volume 12.3 fL (7.4-10.4); Platelet Count 45 10^3/uL (130-400); Red Blood Cell Count 2.94 10^6/uL (4.70-6.10); Red Cell Dist. Width 18.9 % (11.5-14.5); White Blood Cell Count 19.1 10^3/uL (4.8-10.8)
[2024-07-24 17:06] LABS: % Basophils 0.6 % (0-2); % Immature Granulocytes 2.7 % (0-0.5); % Lymphocytes 1.8 % (20.5-51.1); % Monocytes 3.8 % (1.7-9.3); % Neutrophils 91.1 % (42.2-75.2); Absolute Basophils 0.1 10^3/uL (0-0.2); Absolute Immature Granulocytes 0.5 10^3/uL (0-0.05); Absolute Lymphocytes 0.4 10^3/uL (1.2-3.4); Absolute Monocytes 0.7 10^3/uL (0.1-0.6); Absolute Neutrophils 17.4 10^3/uL (1.4-6.5); Nucleated Red Blood Cells % 0.5 % (-)
[2024-07-24] MEDS: ROCEPHIN 1000 MG IV (18:09)
--- NOTE | 2024-07-24 20:00 | PTCARENOTE ---
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 RA Sat 100%. pt requesting neurontin for phantom limb pain- notified BDoughertyNP- [facility] in to talk to pt. call peraza with pt.
[2024-07-24] MEDS: NEURONTIN 600 MG PO (22:35)
[2024-07-25] VITALS (22 sets, daily range): BP systolic 79–121; BP diastolic 58–76; PULSE 83; O2SAT 97; BMI 17.2
[2024-07-25] MEDS: SOLU-CORTEF 50 MG IV ×3 (06:07→15:55)
[2024-07-25] MEDS: SYNTHROID 150 MCG PO (06:08)
[2024-07-25 06:39] LABS: Hematocrit 24.8 % (39.0-52.0); Hemoglobin 8.7 g/dL (13.0-18.0); Mean Corp Hgb Conc. 35.1 g/dL (33.0-37.0); Mean Corpuscular Hgb 32.6 pg (27.0-31.0); Mean Corpuscular Volume 92.9 fL (80.0-94.0); Mean Platelet Volume 11.7 fL (7.4-10.4); Platelet Count 46 10^3/uL (130-400); Red Blood Cell Count 2.67 10^6/uL (4.70-6.10); Red Cell Dist. Width 18.7 % (11.5-14.5); White Blood Cell Count 16.1 10^3/uL (4.8-10.8)
[2024-07-25 06:40] LABS: Blood Urea Nitrogen 15 mg/dl (9-20); Calcium 6.9 mg/dl (8.4-10.2); Carbon Dioxide 24 mmol/L (22-30); Chloride 104 mmol/L (98-107); Estimated Creatinine Clearance 88 ml/min; Glucose 84 mg/dl (70-99); Magnesium 1.9 mg/dl (1.6-2.3); Phosphorus 3.7 mg/dl (2.5-4.5); Potassium 3.9 mmol/L (3.5-5.1); Sodium 131 mmol/L (135-145); eGFR > 60.00
--- NOTE | 2024-07-25 07:54 | W.PN.HOSP.TC ---
Today's Communication/Plan
-
Stable for [facility]
Assessment / Plan
Assessment / Plan
HPI: 68-year-old male with a past medical history of metastatic lung cancer status post chemo and radiation, paroxysmal atrial fibrillation on Eliquis, diabetes, rheumatoid arthritis, anemia, COPD, hypertension, hyperlipidemia, and hypothyroidism
presents with fatigue and shortness of breath for 2-3 weeks. Patient states he finished his chemo and radiation treatments 3 weeks ago. About a week afterwards, he started having nausea, vomiting, diarrhea, and poor oral intake. Last loose stool
was 2-3 days ago. No abdominal pain. No chest pain.
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
Appreciate staff nurse anesthetist input, status post Levophed
Discussed with general surgery, gallbladder is completely normal
Discussed with radiology, there is no cholecystitis
Urine cultures growing Klebsiella, sensitive to Rocephin
Wean stress dose IV steroids, continue Rocephin D2, s/p IV Merrem, blood cx NTD, repeat blood cx NTD
Gentle IV fluids, patient has low albumin and will third space
#Stage III NSCLC, now stage IV with metastasis to the bone
#Cachexia
#Failure to thrive
#Severe protein calorie malnutrition
Oncology/palliative care following
Patient agreeable to hospice consult 07/24
Patient also agreeable to changing CODE STATUS to DNR 07/24
#No pulmonary embolism
Patient has not been taking his Eliquis for several weeks secondary to nausea/vomiting
Appreciate oncology input, started on heparin drip 07/24
#New small-moderate pericardial effusion
Suspicious for malignant pericardial effusion
Appreciate cardiology input, rec repeat echo on Saturday 07/28
#Paroxysmal atrial fibrillation
Currently on IV heparin drip for PE, holding metoprolol secondary to soft blood pressure
#Abdominal pain
#Portal venous gas and mesenteric venous gas
Appreciate general surgery input, suspect portal venous gas and mesenteric venous gas may be reflective of severity of emphysematous cystitis and possible secondary gas producing bacteremia
There is no pneumatosis intestinalis, no evidence of bowel obstruction or ileus. There is no cholecystitis either
Continue medical management as per general surgery, they have signed off
Advance to full liquids with strawberry Ensure today, for lunch if tolerating may advance to regular
#Symptomatic anemia
#Thrombocytopenia
Hemoglobin 8.7 today, he has received a total of 3 units of packed red blood cells
Status post 1 unit of platelets, plan for another unit of platelets today
No evidence of iron deficiency with ferritin >1000. Oncology started folic acid 07/23
Appreciate oncology input, follow-up flow cytology and BCR/ABL
He may need bone marrow biopsy if cytopenias remain unexplained and don't improve
#Nausea/vomiting
Discontinue Zofran/Compazine secondary to prolonged QTc
Phenergan p.o. as needed, Tigan IM as needed
#Prolonged QTc
Discontinued Zofran/Compazine/welbutrin
Monitor EKG daily
#Loose stools
Last bowel movement 2-3 days ago, loose per patient
#Hypovolemic hyponatremia
Improved with IV fluids, continue
#Hypomagnesemia
Replete as needed
#History of diabetes, no longer diabetic
Hemoglobin A1c 5.3
#Anxiety/depression
Olanzapine discontinued secondary to anemia and thrombocytopenia
Hold Wellbutrin secondary to prolonged QTc
#Hypothyroidism
Continue Synthroid
DVT prophylaxis�IV heparin drip
Full code
Updated family at bedside 07/24
Total time spent to see the patient on the floor, examine the patient, review data and lab results, discuss treatment plan with patient, nursing staff around 50 minutes.
Physical Exam
General: No Apparent Distress and Other (Thin, cachectic, appears chronically ill)
HEENT: NormoCephalic, Anicteric, Moist mucous membranes and Atraumatic
Respiratory: Clear
Cardiac: S1/S2 and regular rate/rhythm
GI: Soft, Non Tender, Non Distended and Normal Bowel Sounds
Musculoskeletal: Edema, Left Lower Extremity and Other (Right AKA noted)
Skin: Warm
Neuro: Awake, Alert and Oriented
Psych: Calm
Anticipated Discharge: > 48 hours
Subjective/Interval History
-
Date of Service: July 25, 2024
Patient reports feeling better. Denies dysuria, no nausea, no vomiting. No black stools. No abdominal pain. No fever. No chest pain.
Objective Data
-
Labs:
Laboratory Results
07/24/24 07/24/24 07/25/24
11:37 18:15 06:08
WBC Cancelled 16.1 H
Hgb Cancelled 8.7 L
Hct Cancelled 24.8 L
Plt Count Cancelled 46 L
APTT Cancelled Cancelled
Sodium 131 L
Potassium 3.9
Chloride 104
Carbon Dioxide 24
BUN 15
Creatinine 0.7
Glucose 84
Calcium 6.9 L*
Vital Signs:
Vital Signs
Temp Pulse Resp BP Pulse Ox
97.4 F 66 10 96/59 99
07/25/24 04:00 07/25/24 06:00 07/25/24 06:00 07/25/24 06:00 07/25/24 06:00
I&O
07/24/24 07/25/24 07/26/24
06:59 06:59 06:59
Intake Total 2918.8 / 3122.6 3428.8 / 3428.8
Output Total 575 / 575 425 / 425
Balance 2343.8 / 2547.6 3003.8 / 3003.8
--- NOTE | 2024-07-25 08:00 | PTCARENOTE ---
Received patient from night coordinator. patient is awake, alert, oriented, speaking with patient, he is aware of his poor prognosis. Planning and discussing hospice care. Patient is on room air, diminished throughout, 98%. He is in a sinus rhythm.
Off any pressor requirements. Patient is written for a clear liquid diet, using urinal as needed. has appetite, assisted patient in ordering. Skin as documented in focused assessment. NSS infusing into port. Will review orders. patient ablet o
make needs known. emotional support given.
[2024-07-25] MEDS: PROTONIX IV 40 MG IV ×2 (08:06→19:59)
[2024-07-25] MEDS: NSS (PRESERVATIVE FREE) 10 ML IV ×2 (08:06→19:58)
--- NOTE | 2024-07-25 08:22 | W.PN.ONC2 ---
Today's Communication / Plan
-
Sepsis, emphysematous cystitis per primary service and ICU team
continue heparin gtt for PE, once pt platelets stable >50,000 then would transition back to DOAC
will need to consider IVC filter if unable to tolerate anticoagulation, however, unclear benefit in absence of LE DVT
transfuse platelets <50,000
Awaiting flow cytometry and added BCR/ABL as differential seems to show predominantly granulocytic form
Impression
Impression
stage IIIB lung cancer, s/p chemo/RT which finished 06/20/24, unfortunately his CT CAP 07/23 suspicious for new metastasis to pelvis
symptomatic anemia, Prior anemia w/ u was unrevealing. No evidence of iron deficiency with ferritin >1000. Continue folic acid. s/p 3 unit prbc
thrombocytopenia likely consumptive in setting of infection
Leukocytosis w/ immature granulocytes
N/V (brain MRI 05/14/24 showed no PAY[employer] DIRECT[employer] mets)
Septic shock
emphysematous cystitis
moderate pericardial effusion, cardiomyopathy EF 35-40%
Acute pulmonary emboli, no DVT -in the setting of DOAC non-compliance
Plan
Plan
>50% of visit was spent on education, counseling, and coordination of care
Subjective/Objective
Subjective
denies chest pain or SOB
denies bleeding
Vital Signs:
Vital Signs
Temp Pulse Resp BP Pulse Ox
97.2 F 66 10 96/59 99
07/25/24 08:09 07/25/24 06:00 07/25/24 06:00 07/25/24 06:00 07/25/24 06:00
Lab Results:
Laboratory Data
WBC 16.1 10^3/uL (4.8-10.8) H 07/25/24 06:08
Hgb 8.7 g/dL (13.0-18.0) L 07/25/24 06:08
Plt Count 46 10^3/uL (130-400) L 07/25/24 06:08
PT 16.4 Sec (11.4-14.6) H 07/24/24 10:33
INR 1.27 07/24/24 10:33
APTT Cancelled 07/24/24 18:15
eGFR > 60.00 07/25/24 06:08
Physical Exam
General: Appears Chronically Ill
HEENT: Negative Jaundice
Cardiology: Normal Sinus Rhythm
Pulmonary: Clear
GI: Soft
Musculoskeletal: right BKA
Neurology: Non Focal
Skin: Warm and Dry
Psych: Calm
Orders
Orders
Orders From Last 24 Hours
07/24/24 10:33
D-Dimer Routine
Fibrinogen Routine
INR [Prothrombin Time] Routine
PTT Routine
--- NOTE | 2024-07-25 08:57 | W.PN.CARDCBS ---
Today's Communication / Plan
-
I had a lengthy discussion with him as he has my outpatient.
I do think he is a reasonable candidate for hospice.
Would continue supportive care and wean off pressors as tolerated.
Okay to continue heparin for now, but if plan is for hospice would stop anticoagulation. Hg at 8.7
If plan is for home hospice would not repeat further echocardiograms to follow effusion.
Will continue to follow for now.
Impression / Plan
-
PCP: Dr. Castellano
Sales Marketing Coordinator: Dr. Aponte
Impression:
Hypotension
Likely sepsis
Emphysematous cystitis
Moderate pericardial effusion-unknown cause may be malignant
Mass in abdomen possibly metastatic
Pulmonary embolism 07/23/[address] scan (patient had not been taking Eliquis for a few weeks because of GI symptomatology)
Anemia
Thrombocytopenia
Recent acute/subacute R parietal/frontal infarct on MRI of brain 05/14/24
Cardiomyopathy, EF 35-40% by echo 05/14/24
Carotid artery disease
Total occlusion of R ICA, 50% stenosis L ICA by CTA head/neck 05/14/24Stage III NSCLC
Recently started chemo (Carboplatin and paclitaxel) 05/02/24 and radiation 4CAD
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
s/p angioplasty and stenting of left common iliac artery and left external iliac artery 01/18/2024
s/p R AKA
Paroxysmal atrial fibrillation
Paroxysmal atrial tachycardia
h/o GIB due to gastric ulcer 2020
DM2
COPD
Chronic Anemia
RA
HTN
HLD
Hypothyroidism
LHC 01/06/2022: [employer] of distal circumflex. Nonobstructive disease in LAD. EF 40%.
Echo 12/30/2020: EF 50 to 55%, mild concentric LVH, mild basal to mid inferolateral hypokinesis, stage I diastolic dysfunction, trace TR, estimated PAP 40 mmHg
Echo 05/14/2024: EF 35 to 40%, global hypokinesis with regional variability, mild concentric LVH, stage I diastolic dysfunction, aortic sclerosis without stenosis
Echocardiogram preliminary 07/23/2024 Limited study: Ejection fraction 40%. Normal right ventricle. No significant valve disease. Small to moderate, moderate circumferential pericardial effusion with fibrinous stranding which is adherent. No
echocardiographic evidence of tamponade.
Plan:
He presented with GI symptoms, dehydration, nausea vomiting and not taking his medications for few weeks including Eliquis. Rhythm remains sinus. He was transferred to intensive care unit 07/23/2024 with hypotension. Sepsis likely the etiology, CT
scan with emphysematous cystitis. Being seen by surgery. Urine with Klebsiella. Broad-spectrum antibiotics. He is hypotensive and remains on warming blanket. Being treated for infection and possible adrenal insufficiency.
Metastatic cancer status post chemo/radiation.
Blood pressure improved with IV fluids and hydration.
On CT scan pulmonary embolism noted. Last night platelet count 30,000. Now 52,000 after platelets. Currently not on anticoagulation.
He denies chest pain. EKG stable. Echocardiogram with small to moderate, moderate pericardial effusion without echocardiographic evidence of tamponade. We spoke at great length and I spoke with his daughter in addition.
Plan at this time:
-Will continue gentle hydration at this point. Continue pressor support as needed with antibiotics.
-Supportive blood products given anemia for which he responded to packed red blood cells. Platelets as needed.
-Continue to hold all antihypertensive/rate control medications given low blood pressure
-Echocardiogram performed 07/23 with heart function stable ejection fraction 40%. Despite pulmonary emboli normal right ventricle. Small to moderate, moderate pericardial effusion with stranding but no echocardiographic evidence of tamponade.
-Thankfully no recurrence of atrial arrhythmias. Continue to monitor telemetry. EKG stable.
-At this time not a candidate for guideline directed medical therapy for heart failure with mildly reduced ejection fraction given hypotension.
-Defer care of pulmonary embolism to hematology/oncology, hospitalist and button breaker service. Now on heparin
-Cancer care per oncology.
-I had a lengthy discussion with him. He did meet with palliative care today. He is likely going to pursue hospice. This is appropriate.
CC time 32 min
Progress Note - Sales Marketing Coordinator
Subjective
Date of Service: July 25, 2024
Resting in bed. Denies chest pains or shortness of breath. Fatigued
Objective
Labs:
07/25/24 06:08
07/25/24 06:08
Labs
Hgb 8.7 g/dL (13.0-18.0) L 07/25/24 06:08
Hct 24.8 % (39.0-52.0) L 07/25/24 06:08
Plt Count 46 10^3/uL (130-400) L 07/25/24 06:08
PT 16.4 Sec (11.4-14.6) H 07/24/24 10:33
INR 1.27 07/24/24 10:33
APTT Cancelled 07/24/24 18:15
Sodium 131 mmol/L (135-145) L 07/25/24 06:08
Potassium 3.9 mmol/L (3.5-5.1) 07/25/24 06:08
BUN 15 mg/dl (9-20) 07/25/24 06:08
Creatinine 0.7 mg/dL (0.7-1.3) 07/25/24 06:08
Glucose 84 mg/dl (70-99) 07/25/24 06:08
Troponins
07/23/24 07/24/24
18:58 01:38
Troponin I 0.013 < 0.012
Vital Signs and I&O:
Vital Signs
Temp Pulse Resp BP Pulse Ox
97.2 F 81 15 98/63 98
07/25/24 08:09 07/25/24 08:00 07/25/24 08:00 07/25/24 08:00 07/25/24 08:00
Vital Signs
Temp Pulse Resp BP Pulse Ox
97.2 F 81 15 98/63 98
07/25/24 08:09 07/25/24 08:00 07/25/24 08:00 07/25/24 08:00 07/25/24 08:00
Intake & Output
07/23/24 07/24/24 07/25/24 07/26/24
06:59 06:59 06:59 06:59
Intake Total 500 / 500 2918.8 / 3122.6 3428.8 / 3503.8 150 / 150
Output Total 575 / 575 425 / 425
Balance 500 / 500 2343.8 / 2547.6 3003.8 / 3078.8 150 / 150
Physical Exam
Physical Exam
GEN: No distress, awake, Ox3
HEENT: supple, anicteric, mmm
LUNGS: dec Bs at bases
CV: Reg, S1/S2, 1/6 syst LSB, no gallop
ABD: soft, BS+, NT/ND
EXT: No edema
NEURO: Gross non-focal
SKIN: No rash
[2024-07-25] MEDS: NSS 1000 IV ×2 (10:04→23:56)
[2024-07-25] MEDS: HEPARIN 25000 UNITS/250 ML IV (10:22)
--- NOTE | 2024-07-25 10:54 | PTCARENOTE ---
Oncology/hematology would like heparin gtt restarted as ordered. Also has order for unit of platelets to be transfused.
--- NOTE | 2024-07-25 11:44 | W.PN.INTV ---
Today's Communication / Plan
Recommendations
Klebsiella continue heparin drip
Continue antibiotics
Supportive care
Contemplating hospice
Transferred to [facility] [place]
Signed off
Assessment
-
68-year-old man with metastatic lung cancer status post chemoradiation 3 weeks ago. Admitted with shortness of breath. Found to have emphysematous cystitis with pneumobilia, septic shock, possible UTI as well. Acute or subacute pulmonary
embolism. Transferred to the critical care unit for vasopressor requirement 07/23/2024 over
Septic shock due to emphysematous cystitis.
Pneumobilia on CAT scan-unclear etiology
Possible UTI-Klebsiella oxytocin,
Suspect subacute right sided pulmonary embolism
CT chest: Reviewed showed moderate burden right-sided pulmonary embolism. No evidence for RV dysfunction.
Pericardial effusion: Not hemodynamically significant
Possibly malignant
Right pelvis soft tissue mass possibly metastatic
Anemia/thrombocytopenia-due to underlying cancer
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
Conditions present prior admission:
Metastatic lung cancer status post chemoradiation 3 weeks ago last session.
Paroxysmal atrial fibrillation
Chronically on Eliquis but patient not compliant
Type 2 diabetes
COPD
Chronic anemia
Rheumatoid arthritis on chronic prednisone therapy
Hypertension
Hyperlipidemia
Hypothyroidism
Assessment and plan:
Critically ill, multiple issues going on-require vasopressors/high risk of bleed severe thrombocytopenia.
-
Septic shock due to emphysematous cystitis.Surgical correspondence reviewed at this point conservative management
-Klebsiella oxytoca-07/22/2024 when urine culture
Continue antibiotics-meropenem.
-
Off vasopressors longer than 24 hours
Patient denies any particular complaints
Abdominal exam is benign
-
Continue stress dose of steroids-patient chronically on prednisone for rheumatoid arthritis-wean off over the next 48 hours back to baseline prednisone.
No further IV fluids necessary
Renal function normal.
-
Acute/subacute pulmonary embolism-no RV dysfunction on echocardiogram.
Patient does not require oxygen
Not tachycardic.
Not requiring vasopressor
High risk of bleeding due to pancytopenia. Hematology following the patient.
Hematology cleared patient for heparin drip without bolus. Follow PTT.
once pt platelets stable >50,000 then would transition back to DOAC
will need to consider IVC filter if unable to tolerate anticoagulation, however, unclear benefit in absence of LE DVT
Transfuse hemoglobin and platelets as necessary.
Continue to monitor for bleeding.
Defer anticoagulation to hematology.
Follow H&H.
-
Malignant.Pericardial effusion suspected, not hemodynamically significant.
Cardiology following
Currently rhythm is stable
Echo on as-needed basis to follow-up on pericardial effusion
-
Patient contemplating hospice. Consult has been placed. Palliative care following-Case was discussed this morning.
-
Diet as able
Head of the bed elevation for aspiration precaution
-
Poor prognosis
DNR status
-
Patient will be transferred to [facility] [place].
Critical care team will sign off.
Please call pulmonary if any respiratory issues arise. Defer anticoagulation to hematology.
Subjective Dataa
Subjective Data
Date of Service:
Date of Service: July 25, 2024
Chief Complaint: Client Reporting Associate Follow Up (Septic shock)
Subjective:
Patient feels tired but otherwise denies nausea, vomiting or abdominal pain.
Denies shortness of breath at rest
Review of Systems
General: Fever (n)
Cardiopulmonary: Dyspnea (n)
GI: Abdominal Pain (n), Nausea (n) and Vomiting (n)
Neuro: Headache (n)
Objective Data
Data Reviewed
Vital Signs / I&O / Oxygen:
Vital Signs
Temp Pulse Resp BP Pulse Ox
97.6 F 81 16 102/66 100
07/25/24 11:33 07/25/24 11:06 07/25/24 11:06 07/25/24 11:06 07/25/24 09:30
Intake and Output
07/24/24 07/25/24 07/26/24
06:59 06:59 06:59
Intake Total 2918.8 / 3122.6 3428.8 / 3503.8 626 / 626
Output Total 575 / 575 425 / 425
Balance 2343.8 / 2547.6 3003.8 / 3078.8 626 / 626
SaO2 100
Physical Exam
General: Comfortable
HEENT: Normocephalic
Cardiovascular: S1-S2
Respiratory: Clear and Non-Labored Respirations
GI: Soft and Non Distended
Neurology: Awake, Alert, AO x 3 and No Motor Deficits
Skin: Warm
Labs/Micro/Reports
Lab Data
07/25/24 06:08
07/25/24 06:08
Laboratory Results
07/24/24 07/24/24
11:37 18:15
APTT Cancelled Cancelled
Microbiology
07/22/24 16:37 Blood/Venous Blood Culture - Preliminary
No Growth in 48 hours- Final report to follow
07/23/24 18:58 Blood/Venous Blood Culture - Preliminary
No Growth in 24 hours- Final report to follow
07/23/24 18:52 Blood/Venous Blood Culture - Preliminary
No Growth in 24 hours- Final report to follow
07/22/24 18:10 Urine Urine Culture - Final
Klebsiella oxytoca
07/22/24 13:57 Nose MRSA Screen - Final
No Methicillin Resistant Staphylococcus aureus isolated.
--- NOTE | 2024-07-25 14:14 | CM ---
CM following re: discharge planning.
Reviewed pt's chart, met with pt.
PT and OT evaluations noted - SNF level of care recommended. Pt stated he is discussing with the family regarding going to a SNF of hospice care. per pt it will be clarified by Sunday. Emotional support offered and provided.
[facility] denied a referral. [facility] SNF will need more information regarding possibility for a prison care.
D/C plan: most likely preferred SNF for a short term rehab and transitioning for hospice care vs home with hospice care.
CM will follow with discharge plan updates as hospitalization progresses
--- NOTE | 2024-07-25 15:17 | W.PN.PAL2 ---
Today's Communication
-
Met with patient. showed him the CT images with the mass on the right. he admits to having increased right leg pain, but he thought it was his phantom leg pain. he was able to do more with PT today.
Meeting with hospice not till sunday per family request. Patient also reports he has meeting with medicaid/wiver program eligibility on sunday. even if approved will take time to get caregivers. his ultimate goal is to return home, and he tells
me he is accepting of hospice, but may need to do rehab first.
Assessment / Plan
-
Assessment/Plan:
Meeting with hospice on sunday
Objective Data
-
Objective Data:
Vital Signs
Temp Pulse Resp BP Pulse Ox
97.5 F 76 16 105/68 98
07/25/24 11:49 07/25/24 12:00 07/25/24 12:00 07/25/24 11:49 07/25/24 12:00
Laboratory Results
07/25/24 06:08
07/25/24 06:08
PT 16.4 Sec (11.4-14.6) H 07/24/24 10:33
INR 1.27 07/24/24 10:33
APTT Cancelled 07/24/24 18:15
Hemoglobin A1c 5.3 % (4.0-5.6) 07/22/24 10:31
Total Protein 4.5 g/dl (6.3-8.2) L 07/23/24 18:35
Albumin 1.7 g/dl (3.5-5.0) L 07/23/24 18:35
Prealbumin 3.8 mg/dl (17.6-36.0) L 07/23/24 05:35
Urine Color Yellow 07/22/24 18:10
Urine Clarity Clear (Clear) 07/22/24 18:10
Urine pH 6.0 (5.0-9.0) 07/22/24 18:10
Ur Specific Universal 1.020 (<1.030) 07/22/24 18:10
Urine Ketones Negative (Negative) 07/22/24 18:10
Urine Bilirubin 2+ (Negative) A 07/22/24 18:10
Palliative Performance Scale
Palliative Performance Scale:
PPS Level Ambulation Activity & Evidence of Disease Self Care Intake Conscious Level
100% Full Normal Activity & Work; Full Intake Full
No Evidence of Disease
90% Full Normal Activity & Work; Full Normal Full
Some Evidence of Disease
80% Full Normal Activity with Effort Full Normal or Full
Some Evidence of Disease Reduced
70% Reduced Unable Normal Job/Work Full Normal or Full
Significant Disease Reduced
60% Reduced Unable Hobby/Housework Occasional Normal or Full or Confusion
Significant Disease Assistance Reduced
50% Mainly Sit/Lie Unable to do Any Work Considerable Normal or Full or Confusion
Extensive Disease Assistance Req'd Reduced
40% Mainly in Bed Unable to do Most Activity Mainly Assistance Normal or Full or Drowsy;
Extensive Disease Reduced +/- Confusion
30% Totally Bed Unable to do Any Activity Total Care Normal or Full or Drowsy;
Bound Extensive Disease Reduced +/- Confusion
20% Totally Bed Bound Unable to do Any Activity Total Care Minimal to Full or Drowsy;
Extensive Disease Sips +/- Confusion
10% Totally Bed Bound Unable to do Any Activity Total Care Mouth Care Drowsy or Coma;
Extensive Disease Only +/- Confusion
0%
PPS Score Level:
Care Reviewed
Data Reviewed
Reviewed with: Physician
--- NOTE | 2024-07-25 15:52 | PN.CDI ---
CDI
- -
CDI:
Physician Documentation Request
Admit Date: 07/22/24 12:26
Dear Doctor Do,
Patient admitted with symptomatic anemia.
07/24 Patient progress note states 'septic shock secondary to emphysematous cystitis'
07/22 Urine grew Klebsiella oxytoca
07/22 WBC 14.7 presenting temp 98.2 , presenting HR 121 , resp rate 15-26
Please clarify the following:
Sepsis was present on admission
Sepsis was not present on admission
Unable to determine
Use of terms such as suspected, likely, concern for, or probable (associated with a specific diagnosis that is being evaluated, monitored, or treated as if it exists) are acceptable and can be coded in the inpatient setting, when documented at the
time of discharge.
Thank you,
Isela Funez RN, BSN
CDI Specialist
tiger text
Please use your independent medical judgment in providing your response.
--- NOTE | 2024-07-25 16:24 | PTCARENOTE ---
transferred patient to room 2136
--- NOTE | 2024-07-25 16:30 | PTCARENOTE ---
Patient transferred from ICU into room 2131. Patient AAOX3, VSS, hep gtt infusing through R FA at 11 ml/hr, NSS infusing through R subq port at 75 ml/hr; PTT due at 1630, to be drawn by Gregory FRYE. Patient oriented to room and call karmen, states no
concerns at this time.
[2024-07-25 17:23] LABS: APTT 119.6 Sec (23.4-35.0)
[2024-07-25] MEDS: ROCEPHIN 1000 MG IV (17:32)
[2024-07-25] MEDS: STERILE WATER FOR INJECTION 10 ML IV (17:33)
[2024-07-25] MEDS: NEURONTIN 600 MG PO (22:28)
[2024-07-25] MEDS: TYLENOL 650 MG PO (23:23)
[2024-07-25 23:58] LABS: APTT 135.5 Sec (23.4-35.0)
[2024-07-26] MEDS: HEPARIN 25000 UNITS/250 ML IV (04:04)
[2024-07-26] MEDS: SOLU-CORTEF 50 MG IV ×2 (04:06→15:46)
[2024-07-26] MEDS: SYNTHROID 150 MCG PO (06:16)
[2024-07-26 06:58] LABS: Hematocrit 26.6 % (39.0-52.0); Hemoglobin 9.2 g/dL (13.0-18.0); Mean Corp Hgb Conc. 34.6 g/dL (33.0-37.0); Mean Corpuscular Hgb 32.5 pg (27.0-31.0); Mean Platelet Volume 10.4 fL (7.4-10.4); Platelet Count 47 10^3/uL (130-400); Red Blood Cell Count 2.83 10^6/uL (4.70-6.10); Red Cell Dist. Width 18.8 % (11.5-14.5); White Blood Cell Count 17.6 10^3/uL (4.8-10.8)
[2024-07-26 07:25] LABS: Blood Urea Nitrogen 14 mg/dl (9-20); Calcium 7.1 mg/dl (8.4-10.2); Carbon Dioxide 23 mmol/L (22-30); Chloride 104 mmol/L (98-107); Estimated Creatinine Clearance 88 ml/min; Glucose 76 mg/dl (70-99); Magnesium 1.8 mg/dl (1.6-2.3); Potassium 3.6 mmol/L (3.5-5.1); Sodium 133 mmol/L (135-145); eGFR > 60.00
[2024-07-26] MEDS: PROTONIX IV 40 MG IV ×2 (07:30→21:19)
[2024-07-26] MEDS: NSS (PRESERVATIVE FREE) 10 ML IV ×2 (07:30→21:20)
[2024-07-26] MEDS: TYLENOL 650 MG PO ×2 (07:36→21:18)
[2024-07-26 07:50] VITALS: BP 122/76
--- NOTE | 2024-07-26 08:24 | W.PN.HOSP.TC ---
Today's Communication/Plan
-
see bold
Assessment / Plan
Assessment / Plan
HPI: 68-year-old male with a past medical history of metastatic lung cancer status post chemo and radiation, paroxysmal atrial fibrillation on Eliquis, diabetes, rheumatoid arthritis, anemia, COPD, hypertension, hyperlipidemia, and hypothyroidism
presents with fatigue and shortness of breath for 2-3 weeks. Patient states he finished his chemo and radiation treatments 3 weeks ago. About a week afterwards, he started having nausea, vomiting, diarrhea, and poor oral intake. Last loose stool
was 2-3 days ago. No abdominal pain. No chest pain.
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
Appreciate manhole stripper input, status post Levophed
Discussed with general surgery, gallbladder is completely normal. Discussed with radiology, there is no cholecystitis
Urine cultures growing Klebsiella, sensitive to Rocephin
Wean stress dose IV steroids, continue Rocephin D3, s/p IV Merrem, blood cx NTD, repeat blood cx NTD
Gentle IV fluids, patient has low albumin and will third space
#Stage III NSCLC, now stage IV with metastasis to the bone/pelvis
#New 7.6 mm lesion at the pelvis suspicious for metastasis
#Cachexia
#Failure to thrive
#Severe protein calorie malnutrition
Oncology/palliative care following
Patient agreeable to hospice consult 07/24
Patient also agreeable to changing CODE STATUS to DNR 07/24
For hospice meeting with family on 07/28
Patient interested in hospice, but wants to do rehab first, and asked me what his treatment plan for his cancer is 07/26
#No pulmonary embolism
Patient has not been taking his Eliquis for several weeks secondary to nausea/vomiting
Appreciate oncology input, started on heparin drip 07/24
#New small-moderate pericardial effusion
Suspicious for malignant pericardial effusion
Appreciate cardiology input, rec repeat echo on Saturday 07/28
#Paroxysmal atrial fibrillation
Currently on IV heparin drip for PE, holding metoprolol secondary to soft blood pressure
#Abdominal pain
#Portal venous gas and mesenteric venous gas
Appreciate general surgery input, suspect portal venous gas and mesenteric venous gas may be reflective of severity of emphysematous cystitis and possible secondary gas producing bacteremia
There is no pneumatosis intestinalis, no evidence of bowel obstruction or ileus. There is no cholecystitis either
Continue medical management as per general surgery, they have signed off
Tolerating regular diet with strawberry Ensure
#Symptomatic anemia
#Thrombocytopenia
Hemoglobin 9.2 today, he has received a total of 3 units of packed red blood cells
Status post 2 unit of platelets, plan for another unit of platelets today
No evidence of iron deficiency with ferritin >1000. Oncology started folic acid 07/23
Appreciate oncology input, follow-up flow cytology and BCR/ABL
He may need bone marrow biopsy if cytopenias remain unexplained and don't improve
#Nausea/vomiting
Discontinue Zofran/Compazine secondary to prolonged QTc
Phenergan p.o. as needed, Tigan IM as needed
#Prolonged QTc
Discontinued Zofran/Compazine/welbutrin
Monitor EKG daily
#Pseudohypocalcemia
Secondary to hypoalbuminemia, corrected calcium is normal
#Loose stools
Last bowel movement 2-3 days ago, loose per patient
#Hypovolemic hyponatremia
Improved with IV fluids, continue
#Hypomagnesemia
Replete as needed
#History of diabetes, no longer diabetic
Hemoglobin A1c 5.3
#Anxiety/depression
Olanzapine discontinued secondary to anemia and thrombocytopenia
Hold Wellbutrin secondary to prolonged QTc
#Hypothyroidism
Continue Synthroid
DVT prophylaxis�IV heparin drip
Full code
Updated family at bedside 07/24
Total time spent to see the patient on the floor, examine the patient, review data and lab results, discuss treatment plan with patient, nursing staff around 51 minutes.
Physical Exam
General: No Apparent Distress and Other (Thin, cachectic, appears chronically ill)
HEENT: NormoCephalic, Anicteric, Moist mucous membranes and Atraumatic
Respiratory: Clear
Cardiac: S1/S2 and regular rate/rhythm
GI: Soft, Non Tender, Non Distended and Normal Bowel Sounds
Musculoskeletal: Edema, Left Lower Extremity and Other (Right AKA noted)
Skin: Warm
Neuro: Awake, Alert and Oriented
Psych: Calm
Anticipated Discharge: > 48 hours
Subjective/Interval History
-
Date of Service: July 25, 2024
Patient feels better. His appetite has improved. He was able to tolerate solids without any abdominal pain. No nausea, no vomiting. No fever. No chest pain, no shortness of breath.
Objective Data
-
Labs:
Laboratory Results
07/25/24 07/25/24
06:08 16:30
WBC 16.1 H
Hgb 8.7 L
Hct 24.8 L
Plt Count 46 L
APTT Pending
Sodium 131 L
Potassium 3.9
Chloride 104
Carbon Dioxide 24
BUN 15
Creatinine 0.7
Glucose 84
Calcium 6.9 L*
Vital Signs:
Vital Signs
Temp Pulse Resp BP Pulse Ox
97.6 F 76 16 105/68 98
07/25/24 15:52 07/25/24 12:00 07/25/24 12:00 07/25/24 11:49 07/25/24 12:00
I&O
07/24/24 07/25/24 07/26/24
06:59 06:59 06:59
Intake Total 2918.8 / 3122.6 3428.8 / 3503.8 1079 / 1079
Output Total 575 / 575 425 / 425
Balance 2343.8 / 2547.6 3003.8 / 3078.8 1079 / 1079
[2024-07-26] MEDS: NSS 1000 IV (09:17)
[2024-07-26 15:56] VITALS: BP 114/85
[2024-07-26] MEDS: ROCEPHIN 1000 MG IV (17:30)
[2024-07-26] MEDS: STERILE WATER FOR INJECTION 10 ML IV (17:30)
[2024-07-26] MEDS: NEURONTIN 600 MG PO (21:19)
[2024-07-26 23:00] VITALS: BP 112/62
[2024-07-27] MEDS: SOLU-CORTEF 50 MG IV (05:00)
[2024-07-27] MEDS: SYNTHROID 150 MCG PO (05:06)
[2024-07-27] MEDS: ATIVAN 0.25 MG PO (05:19)
[2024-07-27 05:44] LABS: Hematocrit 27.2 % (39.0-52.0); Hemoglobin 9.4 g/dL (13.0-18.0); Mean Corp Hgb Conc. 34.6 g/dL (33.0-37.0); Mean Corpuscular Hgb 31.9 pg (27.0-31.0); Mean Corpuscular Volume 92.2 fL (80.0-94.0); Platelet Count 43 10^3/uL (130-400); Red Blood Cell Count 2.95 10^6/uL (4.70-6.10); Red Cell Dist. Width 18.6 % (11.5-14.5); White Blood Cell Count 12.4 10^3/uL (4.8-10.8)
[2024-07-27 05:53] LABS: Blood Urea Nitrogen 13 mg/dl (9-20); Calcium 6.8 mg/dl (8.4-10.2); Carbon Dioxide 21 mmol/L (22-30); Chloride 108 mmol/L (98-107); Estimated Creatinine Clearance 103 ml/min; Glucose 69 mg/dl (70-99); Magnesium 1.7 mg/dl (1.6-2.3); Potassium 2.9 mmol/L (3.5-5.1); Sodium 137 mmol/L (135-145); eGFR > 60.00
[2024-07-27 06:46] LABS: APTT 90.6 Sec (23.4-35.0)
[2024-07-27 07:25] VITALS: BP 111/71
--- NOTE | 2024-07-27 08:20 | W.PN.HOSP.TC ---
Today's Communication/Plan
-
see bold
Assessment / Plan
Assessment / Plan
HPI: 68-year-old male with a past medical history of metastatic lung cancer status post chemo and radiation, paroxysmal atrial fibrillation on Eliquis, diabetes, rheumatoid arthritis, anemia, COPD, hypertension, hyperlipidemia, and hypothyroidism
presents with fatigue and shortness of breath for 2-3 weeks. Patient states he finished his chemo and radiation treatments 3 weeks ago. About a week afterwards, he started having nausea, vomiting, diarrhea, and poor oral intake. Last loose stool
was 2-3 days ago. No abdominal pain. No chest pain.
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
Appreciate librarian head input, status post Levophed
Discussed with general surgery, gallbladder is completely normal. Discussed with radiology, there is no cholecystitis
Urine cultures growing Klebsiella, sensitive to Rocephin
Discontinue stress dose IV steroids, continue Rocephin D4, s/p IV Merrem, blood cx NTD, repeat blood cx NTD
Discontinue IV fluids from edema due to hypoalbuminemia
#Stage III NSCLC, now stage IV with metastasis to the bone/pelvis
#New 7.6 mm lesion at the pelvis suspicious for metastasis
#Cachexia
#Failure to thrive
#Severe protein calorie malnutrition
Oncology/palliative care following
Patient agreeable to hospice consult 07/24
Patient also agreeable to changing CODE STATUS to DNR 07/24
For hospice meeting with family on 07/28
Patient interested in hospice, but wants to do rehab first
#No pulmonary embolism
Patient has not been taking his Eliquis for several weeks secondary to nausea/vomiting
Appreciate oncology input, started on heparin drip 07/[address] Patel, recommend changing heparin drip to Eliquis 07/27
#New small-moderate pericardial effusion
Suspicious for malignant pericardial effusion
Appreciate cardiology input, rec repeat echo on Saturday 07/28 if patient does not agree to hospice
#Paroxysmal atrial fibrillation
Discussed with Dr. Patel, recommend changing heparin drip to Eliquis 07/27
Resume Toprol XL 12.5 mg daily 07/27
#Abdominal pain
#Portal venous gas and mesenteric venous gas
Appreciate general surgery input, suspect portal venous gas and mesenteric venous gas may be reflective of severity of emphysematous cystitis and possible secondary gas producing bacteremia
There is no pneumatosis intestinalis, no evidence of bowel obstruction or ileus. There is no cholecystitis either
Continue medical management as per general surgery, they have signed off
Tolerating regular diet with strawberry Ensure
#Symptomatic anemia
#Thrombocytopenia
Hemoglobin 9.4 today, he has received a total of 3 units of packed red blood cells
Status post 3 unit of platelets
No evidence of iron deficiency with ferritin >1000. Oncology started folic acid 07/23
Appreciate oncology input, follow-up flow cytology and BCR/ABL
He may need bone marrow biopsy if cytopenias remain unexplained and don't improve
Transfuse for platelets less than 30,[address] Patel
#Nausea/vomiting
Discontinue Zofran/Compazine secondary to prolonged QTc
Phenergan p.o. as needed, Tigan IM as needed
#Prolonged QTc
Discontinued Zofran/Compazine/welbutrin
Monitor EKG daily
#Pseudohypocalcemia
Secondary to hypoalbuminemia, corrected calcium is normal
#Loose stools
Monitor
#Epistaxis
Start Bactroban ointment to the nares 07/27
#Hypovolemic hyponatremia
Improved with IV fluids, continue
#Hypomagnesemia
Replete as needed
#History of diabetes, no longer diabetic
Hemoglobin A1c 5.3
#Anxiety/depression
Olanzapine discontinued secondary to anemia and thrombocytopenia
Hold Wellbutrin secondary to prolonged QTc
#Hypothyroidism
Continue Synthroid
DVT prophylaxis�transition IV heparin drip to Eliquis 07/27
Full code
Updated family at bedside 07/24
Total time spent to see the patient on the floor, examine the patient, review data and lab results, discuss treatment plan with patient, nursing staff around 50 minutes.
Physical Exam
General: No Apparent Distress and Other (Thin, cachectic, appears chronically ill)
HEENT: NormoCephalic, Anicteric, Moist mucous membranes and Atraumatic
Respiratory: Right basilar crackles
Cardiac: S1/S2 and regular rate/rhythm
GI: Soft, Non Tender, Non Distended and Normal Bowel Sounds
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
Skin: Warm
Neuro: Awake, Alert and Oriented
Psych: Calm
Anticipated Discharge: > 48 hours
Subjective/Interval History
-
Date of Service: July 26, 2024
Feels better, has appetite. Tolerating diet. No abd pain, no n/v. Had some epistaxis yesterday, resolved spontaneously. No fever, no CP/SOB.
Objective Data
-
Labs:
Laboratory Results
07/26/24 07/26/24
06:45 13:29
WBC 17.6 H
Hgb 9.2 L
Hct 26.6 L
Plt Count 47 L
APTT 86.0 H Pending
Sodium 133 L
Potassium 3.6
Chloride 104
Carbon Dioxide 23
BUN 14
Creatinine 0.7
Glucose 76
Calcium 7.1 L
Vital Signs:
Vital Signs
Temp Pulse Resp BP Pulse Ox
97.3 F 84 18 122/76 98
07/26/24 07:50 07/26/24 07:50 07/26/24 07:50 07/26/24 07:50 07/26/24 11:02
I&O
11/08/24 11/09/24 11/10/24
06:59 06:59 06:59
Intake Total 3428.8 / 3503.8 3189 / 3189
Output Total 425 / 425 750 / 750
Balance 3003.8 / 3078.8 2439 / 2439
[2024-07-27] MEDS: TOPROL XL 12.5 MG PO (08:57)
[2024-07-27] MEDS: PROTONIX IV 40 MG IV (08:57)
[2024-07-27] MEDS: KCL 40 MEQ PO ×3 (08:57→21:19)
[2024-07-27] MEDS: NSS (PRESERVATIVE FREE) 10 ML IV (08:57)
[2024-07-27] MEDS: BACTROBAN 2% OINTMENT 1 APPLIC NASAL ×2 (11:27→19:56)
[2024-07-27] MEDS: HEPARIN 25000 UNITS/250 ML IV (12:41)
[2024-07-27] MEDS: TYLENOL 650 MG PO (14:35)
[2024-07-27 15:25] VITALS: BP 115/71
--- NOTE | 2024-07-27 16:02 | W.PN.ONC ---
Today's Communication / Plan
-
awaiting hospice evaluation tomorrow
Impression
Impression
stage IIIB lung cancer, s/p chemo/RT which finished 06/20/24, unfortunately his CT CAP 07/23 suspicious for new metastasis to pelvis
symptomatic anemia, Prior anemia w/ u was unrevealing. No evidence of iron deficiency with ferritin >1000. Continue folic acid. s/p 3 unit prbc
thrombocytopenia likely consumptive in setting of infection
Leukocytosis w/ immature granulocytes
N/V (brain MRI 05/14/24 showed no SOLUTION STRATEGIST mets)
Septic shock
emphysematous cystitis
moderate pericardial effusion, cardiomyopathy EF 35-40%
Acute pulmonary emboli, no DVT -in the setting of DOAC non-compliance
Plan
Plan
eating well--safe to change to apixaban and off IV heparin-- platelet transfusion if <30k
Subjective/Objective
Subjective/Objective
Pain better controlled.
Vital Signs:
Vital Signs
Temp Pulse Resp BP Pulse Ox
97.7 F 99 16 115/71 99
07/27/24 15:25 07/27/24 15:25 07/27/24 15:25 07/27/24 15:25 07/27/24 15:25
Lab Results:
Laboratory Data
WBC 12.4 10^3/uL (4.8-10.8) H 07/27/24 05:09
Hgb 9.4 g/dL (13.0-18.0) L 07/27/24 05:09
Plt Count 43 10^3/uL (130-400) L 07/27/24 05:09
PT 16.4 Sec (11.4-14.6) H 07/24/24 10:33
INR 1.27 07/24/24 10:33
APTT 90.6 Sec (23.4-35.0) H 07/27/24 06:15
eGFR > 60.00 07/27/24 05:09
[2024-07-27] MEDS: ROXICODONE 5 MG PO (16:16)
[2024-07-27] MEDS: ROCEPHIN 1000 MG IV (17:40)
[2024-07-27] MEDS: STERILE WATER FOR INJECTION 10 ML IV (17:40)
--- NOTE | 2024-07-27 18:24 | W.PN.ONC2 ---
Today's Communication / Plan
-
Appetite improved over the last 48 hours; given lack of bleeding on current IV heparin drip can safely transition back to apixaban; platelet transfusions prophylactically for counts less than 30K
Impression
Impression
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
Plan
Plan
Await hospice discussion for disposition
Subjective/Objective
Chief Complaint
Fatigue predominates; Tearful when speaking of end of life issues;
Subjective
No issues related to epistaxis easy bruising hematuria or bright red blood per rectum on current IV heparin drip
Vital Signs:
Vital Signs
Temp Pulse Resp BP Pulse Ox
97.7 F 99 16 115/71 99
07/27/24 15:25 07/27/24 15:25 07/27/24 15:25 07/27/24 15:25 07/27/24 15:25
Lab Results:
Laboratory Data
WBC 12.4 10^3/uL (4.8-10.8) H 07/27/24 05:09
Hgb 9.4 g/dL (13.0-18.0) L 07/27/24 05:09
Plt Count 43 10^3/uL (130-400) L 07/27/24 05:09
PT 16.4 Sec (11.4-14.6) H 07/24/24 10:33
INR 1.27 07/24/24 10:33
APTT 90.6 Sec (23.4-35.0) H 07/27/24 06:15
eGFR > 60.00 07/27/24 05:09
Physical Exam
Unchanged
Review of Systems
Review of Systems
As per HPI
[2024-07-27] MEDS: ELIQUIS 5 MG PO (19:56)
[2024-07-27] MEDS: PROTONIX 40 MG PO (19:56)
[2024-07-27] MEDS: ROXICODONE 10 MG PO (20:02)
[2024-07-27] MEDS: NEURONTIN 600 MG PO (21:19)
[2024-07-27 23:25] VITALS: BP 138/69
[2024-07-28] MEDS: TYLENOL 650 MG PO ×2 (04:24→13:11)
[2024-07-28] MEDS: SYNTHROID 150 MCG PO (04:24)
[2024-07-28 05:55] VITALS: BMI 19.7
[2024-07-28 06:02] VITALS: BMI 19.1
[2024-07-28 06:42] LABS: Hematocrit 25.4 % (39.0-52.0); Hemoglobin 8.6 g/dL (13.0-18.0); Mean Corp Hgb Conc. 33.9 g/dL (33.0-37.0); Mean Corpuscular Hgb 32.1 pg (27.0-31.0); Mean Corpuscular Volume 94.8 fL (80.0-94.0); Mean Platelet Volume 12.5 fL (7.4-10.4); Platelet Count 38 10^3/uL (130-400); Red Blood Cell Count 2.68 10^6/uL (4.70-6.10); Red Cell Dist. Width 18.6 % (11.5-14.5); White Blood Cell Count 9.3 10^3/uL (4.8-10.8)
[2024-07-28 07:03] LABS: Blood Urea Nitrogen 15 mg/dl (9-20); Calcium 7.4 mg/dl (8.4-10.2); Carbon Dioxide 24 mmol/L (22-30); Chloride 106 mmol/L (98-107); Estimated Creatinine Clearance 114 ml/min; Glucose 72 mg/dl (70-99); Magnesium 1.7 mg/dl (1.6-2.3); Phosphorus 2.8 mg/dl (2.5-4.5); Potassium 4.1 mmol/L (3.5-5.1); Sodium 136 mmol/L (135-145); eGFR > 60.00
[2024-07-28 07:15] VITALS: BP 100/73
[2024-07-28] MEDS: PROTONIX 40 MG PO ×2 (08:25→20:54)
[2024-07-28] MEDS: ELIQUIS 5 MG PO ×2 (08:25→20:54)
[2024-07-28] MEDS: TOPROL XL 12.5 MG PO (08:25)
[2024-07-28] MEDS: BACTROBAN 2% OINTMENT 1 APPLIC NASAL ×2 (08:25→20:54)
--- NOTE | 2024-07-28 08:58 | W.PN.HOSP.TC ---
Today's Communication/Plan
-
Pt has a lot of questions for the oncologist
I have informed the oncologist about pt's desire to address his issues
Family meeting today with regard to hospice
Assessment / Plan
Assessment / Plan
HPI: 68-year-old male with past medical history of metastatic lung cancer status post chemo and radiation, paroxysmal atrial fibrillation on Eliquis, diabetes, rheumatoid arthritis, anemia, COPD, hypertension, hyperlipidemia, and hypothyroidism
presented with fatigue and shortness of breath for 2-3 weeks. 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 About a week afterwards, he started having nausea, vomiting, diarrhea, and poor oral intake. Last loose
stool was 2-3 days ago. No abdominal pain. No chest pain.
A/P:
# Septic shock secondary to emphysematous cystitis, unable to determine if sepsis was present upon admission
Appreciate media technician input, status post Levophed
Discussed with general surgery, gallbladder is completely normal. Discussed with radiology, there is no cholecystitis
Urine cultures growing Klebsiella, sensitive to Rocephin
Discontinued stress dose IV steroids, continue Rocephin, s/p IV Merrem, blood cx NTD, repeat blood cx NTD
Discontinue IV fluids from edema due to hypoalbuminemia
# Stage III NSCLC, now stage IV with metastasis to the bone/pelvis
# New 7.6 mm lesion at the pelvis suspicious for metastasis
# Cachexia
# Failure to thrive
# Severe protein calorie malnutrition
Oncology/palliative care following
Patient agreeable to hospice consult 07/24
Patient also agreeable to changing CODE STATUS to DNR 07/24
For hospice meeting with family on 07/28
Patient interested in hospice, but wants to do rehab first
# No pulmonary embolism
Patient has not been taking his Eliquis for several weeks secondary to nausea/vomiting
Appreciate oncology input, started on heparin drip 07/[address] Patel, recommend changing heparin drip to Eliquis 07/27
# New small-moderate pericardial effusion
Suspicious for malignant pericardial effusion
Appreciate cardiology input, rec repeat echo on Saturday 07/28 if patient does not agree to hospice
# Paroxysmal atrial fibrillation
Discussed with Dr. Patel, recommend changing heparin drip to Eliquis 07/27
Resumed Toprol XL 12.5 mg daily 07/27
# Abdominal pain
# Portal venous gas and mesenteric venous gas
Appreciate general surgery input, suspect portal venous gas and mesenteric venous gas may be reflective of severity of emphysematous cystitis and possible secondary gas producing bacteremia
There is no pneumatosis intestinalis, no evidence of bowel obstruction or ileus. There is no cholecystitis either
Continue medical management as per general surgery, they have signed off
Tolerating regular diet with strawberry Ensure
# Symptomatic anemia
# Thrombocytopenia
Hemoglobin 8.6 today, he has received a total of 3 units of packed red blood cells
Status post 3 unit of platelets
No evidence of iron deficiency with ferritin >1000. Oncology started folic acid 07/23
Appreciate oncology input, follow-up flow cytology and BCR/ABL
He may need bone marrow biopsy if cytopenias remain unexplained and don't improve
Transfuse for platelets less than 30,[address] Patel
# Nausea/vomiting
Discontinue Zofran/Compazine secondary to prolonged QTc
Phenergan p.o. as needed, Tigan IM as needed
# Prolonged QTc
Discontinued Zofran/Compazine/welbutrin
Monitor EKG daily
# Pseudohypocalcemia
Secondary to hypoalbuminemia, corrected calcium is normal
# Loose stools
Monitor
# Epistaxis
Start Bactroban ointment to the nares 07/27
# Hypovolemic hyponatremia
Improved with IV fluids, continue
# Hypomagnesemia
Replete as needed
# History of diabetes, no longer diabetic
Hemoglobin A1c 5.3
# Anxiety/depression
Olanzapine discontinued secondary to anemia and thrombocytopenia
Hold Wellbutrin secondary to prolonged QTc
# Hypothyroidism
Continue Synthroid
DVT prophylaxis�IV heparin drip to Kaylynnis 07/27
DNR DNI
DW Onc
DW daughter on the phone
DW CM
Total time spent 51 min
Anticipated Discharge: 24 - 48 hours
Subjective/Interval History
-
Date of Service: July 28, 2024
Objective Data
-
Labs:
Laboratory Results
07/28/24
06:05
WBC 9.3
Hgb 8.6 L
Hct 25.4 L
Plt Count 38 L
Sodium 136
Potassium 4.1 D
Chloride 106
Carbon Dioxide 24
BUN 15
Creatinine 0.6 L
Glucose 72
Calcium 7.4 L
Vital Signs:
Vital Signs
Temp Pulse Resp BP Pulse Ox
36.7 C 110 17 100/73 99
07/28/24 07:15 07/28/24 07:15 07/28/24 07:15 07/28/24 07:15 07/28/24 07:15
I&O
07/27/24 07/28/24 07/29/24
06:59 06:59 06:59
Intake Total 1776 / 1776 1056 / 1056
Output Total 1525 / 1525 625 / 625
Balance 251 / 251 431 / 431
Review of Systems
-
All other systems: Reviewed and negative
Physical Exam
-
General: Well Developed, Well Nourished, No Apparent Distress, Comfortable and Appears Chronically Ill
HEENT: Normocephalic and Atraumatic
Respiratory: Clear to Auscultation and Non Labored Respirations; Negative Accessory Resp Muscle Use
Cardiac: Regular Rhythm and S1/S2
Musculoskeletal: No Edema and Other (R AKA )
Neuro: Awake and Alert; Negative Slurred Speech or Facial Droop
Psych: Calm and Intact Judgement/Insight
Data Reviewed
-
Labs: Labs Reviewed by me
--- NOTE | 2024-07-28 10:42 | HOSPNOTE ---
Met with patient and daughter to discuss hospice. The plan is for patient to go to rehab and then transition to hospice in the facility. The patient and daughter are all in agreement with the plan. CM aware and will send referrals to several
facilities. Depending on placement we will continue to follow and admit onto hospice when the time is appropriate after rehab. The patient understands that home is really not an option with hospice since he would need 24 hour care. Will continue to
follow.
--- NOTE | 2024-07-28 13:56 | W.PN.ONC ---
Today's Communication / Plan
-
I personally reviewed multiple radiographic studies. The rapidity with which the pelvic mass seemingly grew is not true. It was certainly present on the PET scan back in March of this year. The weekly low-dose chemotherapy that he had in
conjunction with radiation therapy to the chest was not terribly meaningful treatment in general. As such, I would not term him refractory. He is having quite a bit of pain there.
I outlined several options. Certainly his current performance status makes systemic therapy a challenge. However, he might tolerate immunotherapy if he improves in the next 2 to 3 weeks at rehab. We also did discuss possible radiation therapy to
the pelvis, which is giving him quite a bit of pain. He would have the least like to discuss this option with radiation therapy. Obviously, just proceeding with hospice would not be an unreasonable decision either.
Impression
Impression
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
Subjective/Objective
Subjective/Objective
He says he seems to be getting weaker every day. His right hip is causing him quite a bit of pain. Examination is otherwise unchanged.
Vital Signs:
Vital Signs
Temp Pulse Resp BP Pulse Ox
98.1 F 110 17 100/73 99
07/28/24 07:15 07/28/24 07:15 07/28/24 07:15 07/28/24 07:15 07/28/24 07:15
Lab Results:
Laboratory Data
WBC 9.3 10^3/uL (4.8-10.8) 07/28/24 06:05
Hgb 8.6 g/dL (13.0-18.0) L 07/28/24 06:05
Plt Count 38 10^3/uL (130-400) L 07/28/24 06:05
PT 16.4 Sec (11.4-14.6) H 07/24/24 10:33
INR 1.27 07/24/24 10:33
APTT 90.6 Sec (23.4-35.0) H 07/27/24 06:15
eGFR > 60.00 07/28/24 06:05
Orders
Orders
Orders From Last 24 Hours
07/28/24 13:54
Radiation Oncology Consult Routine
[2024-07-28 14:36] VITALS: BP 106/70; PULSE 112
[2024-07-28 15:35] VITALS: BP 91/61
[2024-07-28] MEDS: ROXICODONE 10 MG PO ×2 (15:58→22:54)
[2024-07-28 16:00] VITALS: BP 134/80; PULSE 87
--- NOTE | 2024-07-28 16:31 | CM ---
Reviewed the chart notes. Liaison Nivia with Hospice was in to speak with the patient and daughter at the bedside. Patient wanting SNF/rehab at [facility]. Referral sent with updated PT/OT notes. CM continues to be available to patient/family and
is monitoring medical plan for needs at discharge.
Plan: SNF/rehab, hoping [facility] has a bed.
[2024-07-28] MEDS: STERILE WATER FOR INJECTION 10 ML IV (17:16)
[2024-07-28] MEDS: ROCEPHIN 1000 MG IV (17:16)
[2024-07-28 18:10] VITALS: BP 102/72
[2024-07-28] MEDS: NEURONTIN 600 MG PO (20:58)
[2024-07-28 23:12] VITALS: BP 131/73
[2024-07-29 05:04] LABS: Hematocrit 22.5 % (39.0-52.0); Hemoglobin 7.7 g/dL (13.0-18.0); Mean Corp Hgb Conc. 34.2 g/dL (33.0-37.0); Mean Corpuscular Hgb 32.4 pg (27.0-31.0); Mean Corpuscular Volume 94.5 fL (80.0-94.0); Mean Platelet Volume 12.6 fL (7.4-10.4); Platelet Count 31 10^3/uL (130-400); Red Blood Cell Count 2.38 10^6/uL (4.70-6.10); Red Cell Dist. Width 18.8 % (11.5-14.5); White Blood Cell Count 8.2 10^3/uL (4.8-10.8)
[2024-07-29 05:24] LABS: Blood Urea Nitrogen 14 mg/dl (9-20); Calcium 7.1 mg/dl (8.4-10.2); Carbon Dioxide 26 mmol/L (22-30); Chloride 102 mmol/L (98-107); Estimated Creatinine Clearance 114 ml/min; Glucose 68 mg/dl (70-99); Magnesium 1.5 mg/dl (1.6-2.3); Potassium 3.9 mmol/L (3.5-5.1); Sodium 133 mmol/L (135-145); eGFR > 60.00
[2024-07-29] MEDS: SYNTHROID 150 MCG PO (05:26)
[2024-07-29 06:00] VITALS: BMI 19.0
[2024-07-29 08:00] VITALS: BP 108/64
[2024-07-29] MEDS: MAGNESIUM SULFATE 100 IV (08:44)
[2024-07-29] MEDS: TOPROL XL 12.5 MG PO (08:45)
[2024-07-29] MEDS: PROTONIX 40 MG PO ×2 (08:46→20:13)
[2024-07-29] MEDS: BACTROBAN 2% OINTMENT 1 APPLIC NASAL ×2 (08:46→20:14)
[2024-07-29] MEDS: ELIQUIS 5 MG PO ×2 (08:46→20:14)
--- NOTE | 2024-07-29 09:24 | W.PN.HOSP.TC ---
Today's Communication/Plan
-
see A/P
Assessment / Plan
Assessment / Plan
HPI: 68-year-old male with past medical history of metastatic lung cancer status post chemo and radiation, paroxysmal atrial fibrillation on Eliquis, diabetes, rheumatoid arthritis, anemia, COPD, hypertension, hyperlipidemia, and hypothyroidism
presented with fatigue and shortness of breath for 2-3 weeks. 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 About a week afterwards, he started having nausea, vomiting, diarrhea, and poor oral intake. Last loose
stool was 2-3 days ago. No abdominal pain. No chest pain.
A/P:
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
Appreciate pulper tender input, status post Levophed
Urine cultures growing Klebsiella, sensitive to Rocephin
Discontinued stress dose IV steroids, continue Rocephin, s/p IV Merrem, blood cx NTD, repeat blood cx NTD
Discontinue IV fluids from edema due to hypoalbuminemia
# Stage III NSCLC, now stage IV with metastasis to the bone/pelvis
# New 7.6 mm lesion at the pelvis suspicious for metastasis
# Cachexia
# Failure to thrive
# Severe protein calorie malnutrition
Oncology/palliative care following
Patient agreeable to hospice consult 07/24
Patient agreeable to changing CODE STATUS to DNR 07/24
Pt wants to discuss prognosis with oncologist prior to making hospice decision which is reasonable
# New right pulmonary embolism without right heart strain
Patient has not been taking his Eliquis for several weeks secondary to nausea/vomiting
Appreciate oncology input, started on heparin drip 07/[address] Patel, recommend changing heparin drip to Eliquis 07/27
# New small-moderate pericardial effusion
Suspicious for malignant pericardial effusion
Appreciate cardiology input, rec repeat echo on Sunday unless initiation of hospice
# Paroxysmal atrial fibrillation
Discussed with Dr. Magdalinski, heparin drip changed to Eliquis 07/27
Resumed Toprol XL 12.5 mg daily 07/27
# Abdominal pain
# Portal venous gas and mesenteric venous gas
Appreciate general surgery input, suspect portal venous gas and mesenteric venous gas may be reflective of severity of emphysematous cystitis and possible secondary gas producing bacteremia
There is no pneumatosis intestinalis, no evidence of bowel obstruction or ileus. There is no cholecystitis either
Continue medical management as per general surgery, they have signed off
Tolerating regular diet with strawberry Ensure
# Symptomatic anemia
# Thrombocytopenia
Hemoglobin downtrended to 7.7 today, he has received a total of 3 units of packed red blood cells
Status post 3 unit of platelets
No evidence of iron deficiency with ferritin >1000. Oncology started folic acid 07/23
Appreciate oncology input, follow-up flow cytology and BCR/ABL
He may need bone marrow biopsy if cytopenias remain unexplained and don't improve
Transfuse for platelets less than 30,000 per Onc
# Nausea/vomiting
Discontinue Zofran/Compazine secondary to prolonged QTc
Phenergan p.o. as needed, Tigan IM as needed
# Prolonged QTc
Discontinued Zofran/Compazine/welbutrin
Monitor EKG daily
# Pseudohypocalcemia
Secondary to hypoalbuminemia, corrected calcium is normal
# Loose stools
Monitor
# Epistaxis
Bactroban ointment to the nares 07/27
# Hypovolemic hyponatremia
Improved with IV fluids, continue
# Hypomagnesemia
Replete as needed
# History of diabetes, no longer diabetic
Hemoglobin A1c 5.3
# Anxiety/depression
Olanzapine discontinued secondary to anemia and thrombocytopenia
Hold Wellbutrin secondary to prolonged QTc
# Hypothyroidism
Continue Synthroid
DVT prophylaxis� Eliquis
DNR DNI
DW Onc
DW daughter on the phone
DW CM
Total time spent 51 min
Anticipated Discharge: 24 - 48 hours
Subjective/Interval History
-
Date of Service: July 29, 2024
Objective Data
-
Labs:
Laboratory Results
07/29/24
04:20
WBC 8.2
Hgb 7.7 L
Hct 22.5 L
Plt Count 31 L
Sodium 133 L
Potassium 3.9
Chloride 102
Carbon Dioxide 26
BUN 14
Creatinine 0.5 L
Glucose 68 L
Calcium 7.1 L
Vital Signs:
Vital Signs
Temp Pulse Resp BP Pulse Ox
36.7 C 131 20 108/64 96
07/29/24 08:00 07/29/24 08:00 07/29/24 08:00 07/29/24 08:00 07/29/24 08:00
I&O
07/28/24 07/29/24 07/30/24
06:59 06:59 06:59
Intake Total 1056 / 1056 1140 / 1140
Output Total 625 / 625 1150 / 1150
Balance 431 / 431 -10 / -10
Review of Systems
-
All other systems: Reviewed and negative
Physical Exam
-
General: Well Developed, Well Nourished, No Apparent Distress, Comfortable and Appears Chronically Ill
HEENT: Normocephalic and Atraumatic
Respiratory: Clear to Auscultation and Non Labored Respirations; Negative Accessory Resp Muscle Use
Cardiac: Regular Rhythm and S1/S2
Musculoskeletal: No Edema and Other (R AKA )
Neuro: Awake and Alert; Negative Slurred Speech or Facial Droop
Psych: Calm and Intact Judgement/Insight
Data Reviewed
-
CT Scan: Report Reviewed by me
Labs: Labs Reviewed by me
--- NOTE | 2024-07-29 09:48 | W.PN.ONC ---
Today's Communication / Plan
-
Discussed goals of care - patient agreeable to rehab short-term in hopes of some improvement in performance status, then transition to hospice (likely will need placement, unable to manage at home alone)
Case mgmt involvement
Pain mgmt, considering palliative RT
Monitor CBC, would hold Eliquis is signs of bleeding or continued drop in hgb/platelets. Transfuse for hgb < 8, platelets < 30 or bleeding
Impression
Impression
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
chest/back/pelvic pain
PE
anemia
thrombocytopenia
Plan
Plan
Discussed goals of care - patient agreeable to rehab short-term in hopes of some improvement in performance status, then transition to hospice (likely will need placement, unable to manage at home alone)
Pain mgmt, considering palliative RT
Case mgmt involvement
Monitor CBC, would hold Eliquis is signs of bleeding or continued drop in hgb/platelets. Transfuse for hgb < 8, platelets < 30 or bleeding
Subjective/Objective
Subjective/Objective
c/o ongoing pain, he wishes he could have a glass of wine to help manage symptoms
Met w/ rad onc yesterday, palliative RT to pelvic mass was discussed as an option, being considered. Daughter is considering if for pain mgmt alone
Daughter states patient will be unable to function/manage at home
Vital Signs:
Vital Signs
Temp Pulse Resp BP Pulse Ox
98.0 F 131 20 108/64 96
07/29/24 08:00 07/29/24 08:00 07/29/24 08:00 07/29/24 08:00 07/29/24 08:00
Lab Results:
Laboratory Data
WBC 8.2 10^3/uL (4.8-10.8) 07/29/24 04:20
Hgb 7.7 g/dL (13.0-18.0) L 07/29/24 04:20
Plt Count 31 10^3/uL (130-400) L 07/29/24 04:20
PT 16.4 Sec (11.4-14.6) H 07/24/24 10:33
INR 1.27 07/24/24 10:33
APTT 90.6 Sec (23.4-35.0) H 07/27/24 06:15
eGFR > 60.00 07/29/24 04:20
--- NOTE | 2024-07-29 11:06 | CM ---
Reviewed the chart notes and spoke with the patient at the bedside. IMM reviewed, signed and placed on the chart. Patient agreeable to [facility] for SNF. Patient's mother is currently at [facility]. CM continues to be available to patient/family and is
monitoring medical plan for needs at discharge.
Plan: Discharge to [facility] SNF. No precert required.
[2024-07-29] MEDS: ULTRAM 25 MG PO ×2 (12:56→20:20)
[2024-07-29 16:00] VITALS: BP 91/59
[2024-07-29] MEDS: ROCEPHIN 1000 MG IV (16:54)
[2024-07-29] MEDS: STERILE WATER FOR INJECTION 10 ML IV (16:54)
[2024-07-29] MEDS: ROXICODONE 5 MG PO (17:42)
[2024-07-29 20:10] VITALS: BP 93/55
[2024-07-29] MEDS: NEURONTIN 600 MG PO (21:15)
[2024-07-29 23:18] VITALS: BP 98/59
[2024-07-30] VITALS (11 sets, daily range): BP systolic 80–115; BP diastolic 56–67; BMI 19.3
[2024-07-30] MEDS: SYNTHROID 150 MCG PO (05:09)
[2024-07-30] MEDS: ROXICODONE 10 MG PO ×3 (05:12→20:43)
[2024-07-30 05:27] LABS: Hematocrit 18.1 % (39.0-52.0); Hemoglobin 6.3 g/dL (13.0-18.0); Mean Corp Hgb Conc. 34.8 g/dL (33.0-37.0); Mean Corpuscular Hgb 33.2 pg (27.0-31.0); Mean Corpuscular Volume 95.3 fL (80.0-94.0); Mean Platelet Volume 10.6 fL (7.4-10.4); Platelet Count 26 10^3/uL (130-400); Red Cell Dist. Width 18.3 % (11.5-14.5); White Blood Cell Count 8.3 10^3/uL (4.8-10.8)
--- NOTE | 2024-07-30 05:36 | W.PN.UPDATE ---
Update Note
Progress Note Update
This am, hgb level is 6.3, platelets 26. No sign of bleeding. BP is soft during the night. One unit of blood, one unit of plts ordered, and will place Eliquis on hold as recommended by oncology.
[2024-07-30 05:41] LABS: Blood Urea Nitrogen 17 mg/dl (9-20); Carbon Dioxide 29 mmol/L (22-30); Chloride 101 mmol/L (98-107); Estimated Creatinine Clearance 113 ml/min; Glucose 73 mg/dl (70-99); Magnesium 1.9 mg/dl (1.6-2.3); Potassium 3.9 mmol/L (3.5-5.1); Sodium 133 mmol/L (135-145); eGFR > 60.00
--- NOTE | 2024-07-30 05:57 | PTCARENOTE ---
Blood bank notified this RN that our bank is out of platelets. House GRINDER TENDER notified.
--- NOTE | 2024-07-30 07:15 | W.PN.ONC2 ---
Today's Communication / Plan
-
Eliquis on hold.
Agree with transfusion for Hgb <8 and PLT <30. 1 unit of both PRBCs and platelets have been ordered by hospitalist.
Doppler negative for DVT. Patient has PE.
Spoke to patient's daughter a second time. Recommending IVC filter as he has active PE and is now off of Eliquis for thrombocytopenia. She is agreeable. Ultimately she wishes him to be comfortable but agrees to this minor procedure as goals of
care are potentially restorative.. I will place IVC filter order
Impression
Impression
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
chest/back/pelvic pain
PE
anemia
thrombocytopenia
Plan
Plan
Patient agreeable to rehab short-term in hopes of some improvement in performance status, then transition to hospice (likely will need placement, unable to manage at home alone)
Pain mgmt.
Case mgmt involvement
Monitor CBC, would hold Eliquis is signs of bleeding or continued drop in hgb/platelets. Transfuse for hgb < 8, platelets < 30 or bleeding.
Eliquis intermittently held for thrombocytopenia. Will order IVC filter. Spoke with patient's daughter Franci.
Subjective/Objective
Chief Complaint
ACS Heme Onc
Subjective
Feeling weak. Concerned about having adequate pain control upon discharge. Daughter Franci on cell phone during visit.
Vital Signs:
Vital Signs
Temp Pulse Resp BP Pulse Ox
98 F 104 16 98/59 96
07/29/24 23:18 07/29/24 23:18 07/29/24 23:18 07/29/24 23:18 07/29/24 23:18
Lab Results:
Laboratory Data
WBC 8.3 10^3/uL (4.8-10.8) 07/30/24 04:31
Hgb 6.3 g/dL (13.0-18.0) L* 07/30/24 04:31
Plt Count 26 10^3/uL (130-400) L* 07/30/24 04:31
PT 16.4 Sec (11.4-14.6) H 07/24/24 10:33
INR 1.27 07/24/24 10:33
APTT 90.6 Sec (23.4-35.0) H 07/27/24 06:15
eGFR > 60.00 07/30/24 04:31
Physical Exam
cachetic
Cardiology: S1 and S2
Pulmonary: Clear
GI: Soft
Extremities: No Edema
[2024-07-30] MEDS: TOPROL XL PO (09:09)
[2024-07-30] MEDS: PROTONIX 40 MG PO ×2 (09:09→20:44)
[2024-07-30] MEDS: BACTROBAN 2% OINTMENT 1 APPLIC NASAL ×2 (09:10→20:44)
--- NOTE | 2024-07-30 09:56 | W.PN.HOSP.TC ---
Today's Communication/Plan
-
see A/P
Assessment / Plan
Assessment / Plan
HPI: 68-year-old male with past medical history of metastatic lung cancer status post chemo and radiation, paroxysmal atrial fibrillation on Eliquis, diabetes, rheumatoid arthritis, anemia, COPD, hypertension, hyperlipidemia, and hypothyroidism
presented with fatigue and shortness of breath for 2-3 weeks. 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 About a week afterwards, he started having nausea, vomiting, diarrhea, and poor oral intake. Last loose
stool was 2-3 days ago. No abdominal pain. No chest pain.
A/P:
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
Appreciate greenskeeper supervisor input, status post Levophed
Urine cultures grew Klebsiella, sensitive to Rocephin
Discontinued stress dose IV steroids, continue Rocephin, s/p IV Merrem, blood cx NTD, repeat blood cx NTD
Discontinue IV fluids from edema due to hypoalbuminemia
# Stage III NSCLC, now stage IV with metastasis to the bone/pelvis
# New 7.6 mm lesion at the pelvis suspicious for metastasis
# Cachexia
# Failure to thrive
# Severe protein calorie malnutrition
Oncology/palliative care following
Patient agreeable to hospice consult 07/24
Patient agreeable to changing CODE STATUS to DNR 07/24
Pending hospice decision. Current dispo plan is for SNF with likely transition to hospice at facility.
# New right pulmonary embolism without right heart strain
Patient has not been taking his Eliquis for several weeks secondary to nausea/vomiting
Appreciate oncology input
started heparin drip 07/24, changed to Eliquis 07/27
Due to drop in Hgb and platelet 07/30, stopped Eliquis
for IVC filter placement on 07/30 by IR
# New small-moderate pericardial effusion
Suspicious for malignant pericardial effusion
Appreciate cardiology input, rec repeat echo on Sunday unless initiation of hospice
# Paroxysmal atrial fibrillation
Cannot continue Eliquis with drop in Hgb and platelet
Resumed Toprol XL 12.5 mg daily 07/27
# Abdominal pain
# Portal venous gas and mesenteric venous gas
Appreciate general surgery input, suspect portal venous gas and mesenteric venous gas may be reflective of severity of emphysematous cystitis and possible secondary gas producing bacteremia
There is no pneumatosis intestinalis, no evidence of bowel obstruction or ileus. There is no cholecystitis either
Continue medical management as per general surgery, they have signed off
Tolerating regular diet with strawberry Ensure
# Symptomatic anemia
# Thrombocytopenia
Hemoglobin downtrended to 6.3 today, transfuse additional PRBC (of note, he has received 3 units PRBC)
Platelet 26k today, transfuse additional platelet (of note, status post 3 units platelets). Transfuse for platelets less than 30,000 per Onc
No evidence of iron deficiency with ferritin >1000.
Oncology started folic acid 07/23
Appreciate oncology input, follow-up flow cytology and BCR/ABL
He may need bone marrow biopsy if cytopenias remain unexplained and don't improve
# Nausea/vomiting
Discontinue Zofran/Compazine secondary to prolonged QTc
Phenergan p.o. as needed, Tigan IM as needed
# Prolonged QTc
Discontinued Zofran/Compazine/welbutrin
Monitor EKG daily
# Pseudohypocalcemia
Secondary to hypoalbuminemia, corrected calcium is normal
# Loose stools
Monitor
# Epistaxis, resolved
Bactroban ointment to the nares 07/27
# Hypovolemic hyponatremia
Improved with IV fluids, continue
# Hypomagnesemia
Replete as needed
# History of diabetes, no longer diabetic
Hemoglobin A1c 5.3
# Anxiety/depression
Olanzapine discontinued secondary to anemia and thrombocytopenia
Hold Wellbutrin secondary to prolonged QTc
# Hypothyroidism
Continue Synthroid
# Generalized pain
Adjust Tylenol to ATC, cont oxycodone and tramadol PRN
cont gabapentin 600 mg HS, add 100 mg daily
# Insomnia
Melatonin added
DVT prophylaxis� SCD
DNR DNI
DW Onc
DW daughter on the phone
Total time spent 51 min
Anticipated Discharge: 24 - 48 hours
Subjective/Interval History
-
Date of Service: July 30, 2024
Objective Data
-
Labs:
Laboratory Results
07/30/24
04:31
WBC 8.3
Hgb 6.3 L*
Hct 18.1 L*
Plt Count 26 L*
Sodium 133 L
Potassium 3.9
Chloride 101
Carbon Dioxide 29
BUN 17
Creatinine 0.5 L
Glucose 73
Calcium 7.0 L
Vital Signs:
Vital Signs
Temp Pulse Resp BP Pulse Ox
36.8 C 72 20 99/58 94
07/30/24 08:00 07/30/24 09:09 07/30/24 08:00 07/30/24 09:09 07/30/24 08:00
I&O
07/29/24 07/30/24 07/31/24
06:59 06:59 06:59
Intake Total 1140 / 1140 660 / 660
Output Total 1150 / 1150 725 / 725
Balance -10 / -10 -65 / -65
Review of Systems
-
All other systems: Reviewed and negative
Physical Exam
-
General: Well Developed, Well Nourished, No Apparent Distress, Comfortable, Appears Chronically Ill and Other (frail)
HEENT: Normocephalic and Atraumatic
Respiratory: Clear to Auscultation and Non Labored Respirations; Negative Accessory Resp Muscle Use
Cardiac: Regular Rhythm and S1/S2
Musculoskeletal: No Edema and Other (R AKA )
Neuro: Awake and Alert; Negative Slurred Speech or Facial Droop
Psych: Calm and Intact Judgement/Insight
Data Reviewed
-
CT Scan: Report Reviewed by me
Labs: Labs Reviewed by me
[2024-07-30] MEDS: TYLENOL 650 MG PO ×3 (10:30→22:30)
[2024-07-30] MEDS: NEURONTIN 100 MG PO (10:30)
--- NOTE | 2024-07-30 12:40 | CM ---
Reviewed the chart notes. Per notes, IVC filter to be placed today. Patient receiving 1 unit PRBC and 1 unit platelets for hgb 6.3. CM continues to be available to patient/family and is monitoring medical plan for needs at discharge.
Plan: Discharge hopefully to SNF/rehab ([facility]) when medically stable.
--- NOTE | 2024-07-30 14:58 | W.PN.UPDATE ---
Update Note
Progress Note Update
Procedure: IVC venogram and filter placement
- indication: PE with severe anemia and thrombocytopenia
- IVC venogram: patent without anomaly
- ALN retrievable filter placed at L2/3
- Given patient prognosis and comorbidities - filter is likely permanent
--- NOTE | 2024-07-30 16:37 | WOUNDNOTE ---
[facility] RN NOTE: Patient visited for ongoing skin concerns as comes to terms with poor prognosis. Patient describes that skin feels sore and it hurts to be touched. Abdomen with areas of ecchymosis and dry skin. Patient did not want to be turned during
assessment. Patient expressed 'I know I am dying.' We discussed his pain with care and turning. Pain medication has been ordered and Dr. Gallardo aware of assessment.
--- NOTE | 2024-07-30 16:44 | WOUNDNOTE ---
LEFT SECOND TOE
--- NOTE | 2024-07-30 16:45 | WOUNDNOTE ---
[facility] RN NOTE: Patient visited for ongoing skin concerns as comes to terms with poor prognosis. Patient describes that skin feels sore and it hurts to be touched. Abdomen with areas of ecchymosis and dry skin. Patient did not want to be turned during
assessment. Left second toe appears stable since last week. Patient expressed 'I know I am dying.' We discussed his pain with care and turning. Pain medication has been ordered and Dr. Gallardo aware of assessment.
[2024-07-30] MEDS: STERILE WATER FOR INJECTION 10 ML IV (17:18)
[2024-07-30] MEDS: ROCEPHIN 1000 MG IV (17:18)
[2024-07-30] MEDS: MELATONIN 5 MG PO (22:29)
[2024-07-30] MEDS: NEURONTIN 600 MG PO (22:29)
[2024-07-31] VITALS (7 sets, daily range): BP systolic 90–129; BP diastolic 56–74
[2024-07-31] MEDS: SYNTHROID 150 MCG PO (04:15)
[2024-07-31] MEDS: TYLENOL 650 MG PO ×4 (04:15→21:23)
[2024-07-31] MEDS: ROXICODONE 10 MG PO ×3 (04:15→21:22)
[2024-07-31 05:31] LABS: Hematocrit 20.1 % (39.0-52.0); Mean Corp Hgb Conc. 34.8 g/dL (33.0-37.0); Mean Corpuscular Hgb 31.1 pg (27.0-31.0); Mean Corpuscular Volume 89.3 fL (80.0-94.0); Mean Platelet Volume 10.8 fL (7.4-10.4); Platelet Count 41 10^3/uL (130-400); Red Blood Cell Count 2.25 10^6/uL (4.70-6.10); Red Cell Dist. Width 19.9 % (11.5-14.5); White Blood Cell Count 7.8 10^3/uL (4.8-10.8)
[2024-07-31 05:34] LABS: Blood Urea Nitrogen 21 mg/dl (9-20); Calcium 6.8 mg/dl (8.4-10.2); Carbon Dioxide 28 mmol/L (22-30); Chloride 101 mmol/L (98-107); Estimated Creatinine Clearance 115 ml/min; Glucose 68 mg/dl (70-99); Magnesium 1.7 mg/dl (1.6-2.3); Potassium 3.9 mmol/L (3.5-5.1); Sodium 133 mmol/L (135-145); eGFR > 60.00
[2024-07-31] MEDS: BACTROBAN 2% OINTMENT 1 APPLIC NASAL ×2 (07:44→20:07)
[2024-07-31] MEDS: NEURONTIN 100 MG PO (07:44)
[2024-07-31] MEDS: PROTONIX 40 MG PO ×2 (07:44→20:07)
[2024-07-31] MEDS: TOPROL XL PO (07:48)
[2024-07-31] MEDS: ULTRAM 25 MG PO ×2 (10:27→23:06)
--- NOTE | 2024-07-31 11:01 | W.PN.HOSP.TC ---
Today's Communication/Plan
-
see A/P
Assessment / Plan
Assessment / Plan
HPI: 68-year-old male with past medical history of metastatic lung cancer status post chemo and radiation, paroxysmal atrial fibrillation on Eliquis, diabetes, rheumatoid arthritis, anemia, COPD, hypertension, hyperlipidemia, and hypothyroidism
presented with fatigue and shortness of breath for 2-3 weeks. 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 About a week afterwards, he started having nausea, vomiting, diarrhea, and poor oral intake. Last loose
stool was 2-3 days ago. No abdominal pain. No chest pain.
A/P:
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
Appreciate piercer operator input, status post Levophed
Urine cultures grew Klebsiella, sensitive to Rocephin
Discontinued stress dose IV steroids, continue Rocephin, s/p IV Merrem, blood cx NTD, repeat blood cx NTD
Discontinue IV fluids from edema due to hypoalbuminemia
# Stage III NSCLC, now stage IV with metastasis to the bone/pelvis
# New 7.6 mm lesion at the pelvis suspicious for metastasis
# Cachexia
# Failure to thrive
# Severe protein calorie malnutrition
Oncology/palliative care following
Patient agreeable to hospice consult 07/24
Patient agreeable to changing CODE STATUS to DNR 07/24
Pending hospice decision. Current dispo plan is for SNF with likely transition to hospice at facility.
# New right pulmonary embolism without right heart strain
Patient has not been taking his Eliquis for several weeks secondary to nausea/vomiting
Appreciate oncology input
started heparin drip 07/24, changed to Eliquis 07/27
Due to drop in Hgb and platelet 07/30, stopped Eliquis
s/p IVC filter placement on 07/30 by IR
# New small-moderate pericardial effusion
Suspicious for malignant pericardial effusion
Appreciate cardiology input
# Paroxysmal atrial fibrillation
Cannot continue Eliquis with drop in Hgb and platelet
Resumed Toprol XL 12.5 mg daily 07/27
# Abdominal pain
# Portal venous gas and mesenteric venous gas
Appreciate general surgery input, suspect portal venous gas and mesenteric venous gas may be reflective of severity of emphysematous cystitis and possible secondary gas producing bacteremia
There is no pneumatosis intestinalis, no evidence of bowel obstruction or ileus. There is no cholecystitis either
Continue medical management as per general surgery, they have signed off
Tolerating regular diet with strawberry Ensure
# Symptomatic anemia
# Thrombocytopenia
Hemoglobin at 7.0 today, transfuse additional PRBC (of note, he has received 4 units PRBC)
Platelet 41k today (of note, he has received 3 units platelets). Transfuse for platelets less than 30,000 per Onc
No evidence of iron deficiency with ferritin >1000.
Oncology started folic acid 07/23
Appreciate oncology input, follow-up flow cytology and BCR/ABL
He may need bone marrow biopsy if cytopenias remain unexplained and don't improve
# Nausea/vomiting
Discontinue Zofran/Compazine secondary to prolonged QTc
Phenergan p.o. as needed, Tigan IM as needed
# Prolonged QTc
Discontinued Zofran/Compazine/welbutrin
Monitor EKG daily
# Pseudohypocalcemia
Secondary to hypoalbuminemia, corrected calcium is normal
# Loose stools
Monitor
# Epistaxis, resolved
Bactroban ointment to the nares 07/27
# Hypovolemic hyponatremia
Improved with IV fluids, continue
# Hypomagnesemia
Replete as needed
# History of diabetes, no longer diabetic
Hemoglobin A1c 5.3
# Anxiety/depression
Olanzapine discontinued secondary to anemia and thrombocytopenia
Hold Wellbutrin secondary to prolonged QTc
# Hypothyroidism
Continue Synthroid
# Generalized pain
Cont Tylenol 650 mg Q6H ATC, tramadol 25 mg Q12H ATC and Q4H PRN, oxycodone PRN
Start Senokot-S with standing dose opiate
cont RELATIONS DIRECTOR gabapentin 600 mg HS, added 100 mg daily
# Insomnia
Melatonin added
DVT prophylaxis� SCD
DNR DNI
Dispo: SNF
DW daughter on the phone
Total time spent 51 min
Anticipated Discharge: Within 24 hours
Subjective/Interval History
-
Date of Service: July 31, 2024
Objective Data
-
Labs:
Laboratory Results
07/31/24
04:50
WBC 7.8
Hgb 7.0 L
Hct 20.1 L*
Plt Count 41 L D
Sodium 133 L
Potassium 3.9
Chloride 101
Carbon Dioxide 28
BUN 21 H
Creatinine 0.5 L
Glucose 68 L
Calcium 6.8 L*
Vital Signs:
Vital Signs
Temp Pulse Resp BP Pulse Ox
36.7 C 120 16 101/58 96
07/31/24 08:59 07/31/24 08:59 07/31/24 08:59 07/31/24 08:59 07/31/24 08:59
I&O
07/30/24 07/31/24 08/01/24
06:59 06:59 06:59
Intake Total 660 / 660 1352 / 1352 0 / 0
Output Total 725 / 725 350 / 350
Balance -65 / -65 1002 / 1002 0 / 0
Review of Systems
-
All other systems: Reviewed and negative
Physical Exam
-
General: Well Developed, Well Nourished, No Apparent Distress, Comfortable, Appears Chronically Ill and Other (frail)
HEENT: Normocephalic and Atraumatic
Respiratory: Clear to Auscultation and Non Labored Respirations; Negative Accessory Resp Muscle Use
Cardiac: Regular Rhythm and S1/S2
Musculoskeletal: No Edema and Other (R AKA )
Neuro: Awake and Alert; Negative Slurred Speech or Facial Droop
Psych: Calm and Intact Judgement/Insight
Data Reviewed
-
CT Scan: Report Reviewed by me
Labs: Labs Reviewed by me
[2024-07-31] MEDS: ULTRAM PO (11:17)
--- NOTE | 2024-07-31 11:21 | W.PN.ONC ---
Today's Communication / Plan
-
Patient receiving an additional unit of blood
Palliative care
He intends no additional therapy to address his advanced malignancy
Impression
Impression
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
chest/back/pelvic pain
PE
anemia
thrombocytopenia
Plan
Plan
Patient agreeable to rehab short-term in hopes of some improvement in performance status, then transition to hospice (likely will need placement, unable to manage at home alone)
Pain mgmt
Case mgmt involvement
Monitor CBC, would hold Eliquis is signs of bleeding or continued drop in hgb/platelets. Transfuse for hgb < 8, platelets < 30 or bleeding.
Eliquis intermittently held for thrombocytopenia. Will order IVC filter. Spoke with patient's daughter Franci.
Subjective/Objective
Subjective/Objective
Patient slowly improving. Still with severe deconditioning
Vital Signs:
Vital Signs
Temp Pulse Resp BP Pulse Ox
98.0 F 120 16 101/58 96
07/31/24 08:59 07/31/24 08:59 07/31/24 08:59 07/31/24 08:59 07/31/24 08:59
PE: Unchanged
Lab Results:
Laboratory Data
WBC 7.8 10^3/uL (4.8-10.8) 07/31/24 04:50
Hgb 7.0 g/dL (13.0-18.0) L 07/31/24 04:50
Plt Count 41 10^3/uL (130-400) L D 07/31/24 04:50
PT 16.4 Sec (11.4-14.6) H 07/24/24 10:33
INR 1.27 07/24/24 10:33
APTT 90.6 Sec (23.4-35.0) H 07/27/24 06:15
eGFR > 60.00 07/31/24 04:50
[2024-07-31] MEDS: SENOKOT-S 1 TABLET PO ×2 (11:22→20:07)
--- NOTE | 2024-07-31 12:06 | CM ---
Patient for possible transfer tomorrow. [facility] is planning on admission per liaison. Please call report to [phone]/fax [phone]. CM will update patient re plan. CM will continue to follow for discharge planning needs.
Plan;transfer to [place] when medically appropriate. pending physician assessment
--- NOTE | 2024-07-31 12:15 | HOSPNOTE ---
The patient still feels rehab is an option. The patient is being transfused with blood and is not medically stable to go to rehab. I will call the daughter tomorrow and discuss with patient goals of care. More information will follow.
[2024-07-31] MEDS: ROCEPHIN 1000 MG IV (17:04)
[2024-07-31] MEDS: STERILE WATER FOR INJECTION 10 ML IV (17:04)
[2024-07-31] MEDS: MELATONIN 5 MG PO (21:23)
[2024-07-31] MEDS: NEURONTIN 600 MG PO (21:23)
[2024-08-01] MEDS: ROXICODONE 10 MG PO ×3 (02:43→14:12)
[2024-08-01] MEDS: TYLENOL 650 MG PO (03:00)
[2024-08-01] MEDS: SYNTHROID 150 MCG PO (03:00)
[2024-08-01 04:45] LABS: Hematocrit 24.2 % (39.0-52.0); Hemoglobin 8.2 g/dL (13.0-18.0); Mean Corp Hgb Conc. 33.9 g/dL (33.0-37.0); Mean Corpuscular Hgb 31.2 pg (27.0-31.0); Mean Platelet Volume 11.9 fL (7.4-10.4); Platelet Count 37 10^3/uL (130-400); Red Blood Cell Count 2.63 10^6/uL (4.70-6.10); Red Cell Dist. Width 18.1 % (11.5-14.5); White Blood Cell Count 7.2 10^3/uL (4.8-10.8)
[2024-08-01 04:59] LABS: Blood Urea Nitrogen 20 mg/dl (9-20); Calcium 6.9 mg/dl (8.4-10.2); Carbon Dioxide 28 mmol/L (22-30); Chloride 101 mmol/L (98-107); Estimated Creatinine Clearance 115 ml/min; Glucose 63 mg/dl (70-99); Potassium 3.8 mmol/L (3.5-5.1); Sodium 133 mmol/L (135-145); eGFR > 60.00
[2024-08-01 07:47] VITALS: BP 134/81
[2024-08-01] MEDS: NEURONTIN 100 MG PO (08:14)
[2024-08-01] MEDS: TOPROL XL 12.5 MG PO (08:14)
[2024-08-01] MEDS: SENOKOT-S 1 TABLET PO (08:14)
[2024-08-01] MEDS: BACTROBAN 2% OINTMENT 1 APPLIC NASAL (08:14)
[2024-08-01] MEDS: PROTONIX 40 MG PO (08:14)
--- NOTE | 2024-08-01 08:22 | W.PN.ONC2 ---
Addendum entered and electronically signed by SANTANA Shepherd 08/15/24 11:45:
anemia is multifactorial including chronic disease, malignancy, folate deficiency, and infection
Original Note:
Today's Communication / Plan
-
monitor for bleeding, transfuse prn
pain management
discharge planning
Impression
Impression
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
chest/back/pelvic pain
PE, IVC 07/30 d/t c/f bleeding anticoagulation on hold
anemia
thrombocytopenia
Plan
Plan
Patient agreeable to rehab short-term in hopes of some improvement in performance status -Case mgmt involvement
Pain mgmt
Monitor CBC, would hold Eliquis is signs of bleeding or continued drop in hgb/platelets. Transfuse for hgb < 8, platelets < 30 or bleeding.
IVC filter placed 07/30
Has follow up with primary oncologist 08/06 to continue discussion re GOC
Subjective/Objective
Subjective
no new complaints
Vital Signs:
Vital Signs
Temp Pulse Resp BP Pulse Ox
97.8 F 126 18 134/81 98
08/01/24 07:47 08/01/24 08:14 08/01/24 07:47 08/01/24 08:14 08/01/24 07:47
Lab Results:
Laboratory Data
WBC 7.2 10^3/uL (4.8-10.8) 08/01/24 04:09
Hgb 8.2 g/dL (13.0-18.0) L 08/01/24 04:09
Plt Count 37 10^3/uL (130-400) L 08/01/24 04:09
PT 16.4 Sec (11.4-14.6) H 07/24/24 10:33
INR 1.27 07/24/24 10:33
APTT 90.6 Sec (23.4-35.0) H 07/27/24 06:15
eGFR > 60.00 08/01/24 04:09
--- NOTE | 2024-08-01 09:14 | CM ---
Patient for transfer to SNF; [facility] today. Please call report to [phone]/fax [phone]. CM completed transfer forms and placed on chart. CM will talk to patient about IMM and update regarding plan for transfer. Pending physician assessment.
CM will continue to follow for discharge planning needs.
Plan; SNF
--- NOTE | 2024-08-01 10:10 | W.PN.HOSP.TC ---
Addendum entered and electronically signed by Olga Gallardo MD 08/01/24 14:28:
total DC time 40 min
Original Note:
Today's Communication/Plan
-
see A/P
Assessment / Plan
Assessment / Plan
HPI: 68-year-old male with past medical history of metastatic lung cancer status post chemo and radiation, paroxysmal atrial fibrillation on Eliquis, diabetes, rheumatoid arthritis, anemia, COPD, hypertension, hyperlipidemia, and hypothyroidism
presented with fatigue and shortness of breath for 2-3 weeks. 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 About a week afterwards, he started having nausea, vomiting, diarrhea, and poor oral intake. Last loose
stool was 2-3 days ago. No abdominal pain. No chest pain.
A/P:
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
Appreciate corsetier input, status post Levophed
Urine cultures grew Klebsiella, sensitive to Rocephin
Discontinued stress dose IV steroids, continue Rocephin, s/p IV Merrem, blood cx NTD, repeat blood cx NTD
Discontinue IV fluids from edema due to hypoalbuminemia
# Stage III NSCLC, now stage IV with metastasis to the bone/pelvis
# New 7.6 mm lesion at the pelvis suspicious for metastasis
# Cachexia
# Failure to thrive
# Severe protein calorie malnutrition
Oncology/palliative care following
Patient agreeable to hospice consult 07/24
Patient agreeable to changing CODE STATUS to DNR 07/24
Pending hospice decision. Current dispo plan is for SNF with likely transition to hospice at facility.
# New right pulmonary embolism without right heart strain
Patient has not been taking his Eliquis for several weeks secondary to nausea/vomiting
Appreciate oncology input
started heparin drip 07/24, changed to Eliquis 07/27
Due to drop in Hgb and platelet 07/30, stopped Eliquis
s/p IVC filter placement on 07/30 by IR
# New small-moderate pericardial effusion
Suspicious for malignant pericardial effusion
Appreciate cardiology input
# Paroxysmal atrial fibrillation
Cannot continue Eliquis with drop in Hgb and platelet
Resumed Toprol XL 12.5 mg daily 07/27
# Abdominal pain
# Portal venous gas and mesenteric venous gas
Appreciate general surgery input, suspect portal venous gas and mesenteric venous gas may be reflective of severity of emphysematous cystitis and possible secondary gas producing bacteremia
There is no pneumatosis intestinalis, no evidence of bowel obstruction or ileus. There is no cholecystitis either
Continue medical management as per general surgery, they have signed off
Tolerating regular diet with strawberry Ensure
# Symptomatic anemia
# Thrombocytopenia
Hemoglobin at 7.0 today, transfuse additional PRBC (of note, he has received 4 units PRBC)
Platelet 41k today (of note, he has received 3 units platelets). Transfuse for platelets less than 30,000 per Onc
No evidence of iron deficiency with ferritin >1000.
Oncology started folic acid 07/23
Appreciate oncology input, follow-up flow cytology and BCR/ABL
He may need bone marrow biopsy if cytopenias remain unexplained and don't improve
# Nausea/vomiting
Discontinue Zofran/Compazine secondary to prolonged QTc
Phenergan p.o. as needed, Tigan IM as needed
# Prolonged QTc
Discontinued Zofran/Compazine/welbutrin
Monitor EKG daily
# Pseudohypocalcemia
Secondary to hypoalbuminemia, corrected calcium is normal
# Loose stools
Monitor
# Epistaxis, resolved
Bactroban ointment to the nares 07/27
# Hypovolemic hyponatremia
Improved with IV fluids, continue
# Hypomagnesemia
Replete as needed
# History of diabetes, no longer diabetic
Hemoglobin A1c 5.3
# Anxiety/depression
Olanzapine discontinued secondary to anemia and thrombocytopenia
Hold Wellbutrin secondary to prolonged QTc
# Hypothyroidism
Continue Synthroid
# Generalized pain
Cont Tylenol 650 mg Q6H ATC, tramadol 25 mg Q12H ATC and Q4H PRN, oxycodone PRN
Started Senokot-S with standing dose opiate
cont SECURITY RESEARCHER gabapentin 600 mg HS, added 100 mg daily
# Insomnia
Melatonin added
DVT prophylaxis� SCD
DNR DNI
Dispo: SNF
DW daughter on the phone
Anticipated Discharge: Today
Subjective/Interval History
-
Date of Service: August 01, 2024
Objective Data
-
Labs:
Laboratory Results
08/01/24
04:09
WBC 7.2
Hgb 8.2 L
Hct 24.2 L
Plt Count 37 L
Sodium 133 L
Potassium 3.8
Chloride 101
Carbon Dioxide 28
BUN 20
Creatinine 0.5 L
Glucose 63 L
Calcium 6.9 L*
Vital Signs:
Vital Signs
Temp Pulse Resp BP Pulse Ox
36.6 C 126 18 134/81 98
08/01/24 07:47 08/01/24 08:14 08/01/24 07:47 08/01/24 08:14 08/01/24 07:47
I&O
07/31/24 08/01/24 08/02/24
06:59 06:59 06:59
Intake Total 1352 / 1352 1150 / 1150
Output Total 350 / 350 750 / 750
Balance 1002 / 1002 400 / 400
Review of Systems
-
All other systems: Reviewed and negative
Physical Exam
-
General: Well Developed, Well Nourished, No Apparent Distress, Comfortable, Appears Chronically Ill and Other (frail)
HEENT: Normocephalic and Atraumatic
Respiratory: Clear to Auscultation and Non Labored Respirations; Negative Accessory Resp Muscle Use
Cardiac: Regular Rhythm and S1/S2
Musculoskeletal: No Edema and Other (R AKA )
Neuro: Awake and Alert; Negative Slurred Speech or Facial Droop
Psych: Calm and Intact Judgement/Insight
Data Reviewed
-
CT Scan: Report Reviewed by me
Labs: Labs Reviewed by me
[2024-08-01] MEDS: TYLENOL PO (10:47)
[2024-08-01] MEDS: FLUAD (65 yr+) 2024-2025 FORMULA 0.5 ML IM (10:47)
[2024-08-01] MEDS: ULTRAM 25 MG PO (10:55)
--- NOTE | 2024-08-01 14:03 | W.DCSUMMARY ---
Addendum entered and electronically signed by Olga Gallardo MD 08/11/24 15:26:
# Septic shock unable to determine if present on admission or not, secondary to emphysematous cystitis/complicated UTI.
Original Note:
Discharge Summary
Discharge Data
Date of Admission: 07/22/24
Date of Discharge: 08/01/24
-
Pending Results: No
Hospital Course
Principal Diagnosis:
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
New right pulmonary embolism without right heart strain
New small-moderate pericardial effusion
Generalized pain
Symptomatic anemia
Thrombocytopenia
Hypomagnesemia
Pseudohypocalcemia, secondary to hypoalbuminemia, corrected calcium is normal
Chronic Diagnoses:�
Non-small cell lung cancer now stage IV with metastasis to the bone/pelvis, with cachexia/failure to thrive/severe protein calorie malnutrition
History of diabetes, no longer diabetic. Hemoglobin A1c 5.3
Anxiety/depression
Hypothyroidism on Synthroid
Paroxysmal atrial fibrillation
Rheumatoid arthritis,
COPD
Hypertension
Hyperlipidemia
Consultations:�
Oncology
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
Cardiology
Palliative care
Procedures:�
IVC filter placement 07/30 by IR
Clinical course:�
This is a 68-year-old male with past medical history as stated above, who presented with fatigue and shortness of breath ongoing for 2 to 3 weeks.
Problem 1:
Septic shock on admission secondary to emphysematous cystitis/complicated UTI.
He received Levophed which was subsequently discontinued.
His urine cultures grew Klebsiella, sensitive to Rocephin.
He received Rocephin while in the hospital, and was discharged with cefdinir for 6 more days to complete a total of 14 days course of antibiotic.
Problem 2:
Now metastatic non-small cell lung cancer, metastases to bone/pelvis.
The patient is cachectic with failure to thrive/severe protein caloric malnutrition likely due to ongoing metastatic cancer.
Following extensive family meetings with goals of care discussion, the plan wass to discharge the patient to SNF with likely transition to hospice at the facility.
Problem 3:
New right pulmonary embolism without right heart strain.
This was treated with heparin drip which was changed to Eliquis.
Unfortunately he did not tolerate Eliquis due to drop in hemoglobin and worsening thrombocytopenia, hence the patient underwent IVC filter placement by IR on 07/30/2024.
Problem 4:
New small-moderate pericardial effusion, suspicious for malignant pericardial effusion.
Since the plan is to transition to hospice care outpatient, this pericardial effusion does not need to be further investigated.
Problem 5:
Symptomatic anemia with worsening thrombocytopenia.
Of note, the patient received a total of 5 unit PRBC and 3 units of platelets during this admission.
Eliquis was discontinued due to continued drop in hemoglobin and platelet.
Problem 6:
Worsening generalized pain.
The patient can continue with tramadol 25 mg every 12 hours with 50 mg as needed, oxycodone 5 mg as needed, gabapentin 600 mg at bedtime and 100 mg daily for pain control.
As for the rest of his medical problems, they were stable during his hospital stay.
Discharge Plan
-
Patient Disposition: Custodial/SNF
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
Now stage 4 NSCLC with metastasis to the bone/pelvis;
New right pulmonary embolism without right heart strain (status post IVC filter placement);
Acute on chronic anemia with thrombocytopenia status post multiple transfusion;
Severe clinical deconditioning with frailty;
Condition: Fair
Diet: As tolerated
Activity: As tolerated
Driving Restrictions: No driving
Other Services: Hospice
Wound Care: Wound Care Instructions
Sacrum and Spine- Keep covered with silicone border foam.
Left second toe- Clean with normal saline or soap and water. Apply small amount of Vaseline and cover with silicone border foam. Change Q48 hours and PRN if loose or soiled.
Activity Restrictions/Additional Instructions:
Referrals:
Marga Galindo CRNP [Family Provider] - in less than 1 week
Additional Discharge Medication Instructions: Take gabapentin 600 mg at night and 100 mg during the day;
Take tramadol as needed and around the clock for pain control.
Take senokot S to prevent constipation.
Take cefdinir for 6 more days to complete the antibiotic course for your UTI
Prescriptions:
New
gabapentin 100 mg Capsule
100 mg PO DAILY Qty: 30 0RF
sennosides-docusate sodium 8.6-50 mg Tablet
1 tab PO BID Qty: 60 0RF
tramadol 50 mg Tablet
25 mg PO Q12H Qty: 60 0RF
oxycodone 5 mg Tablet
5 mg PO Q4HPRN PRN (Reason: moderate pain) Qty: 10 0RF
cefdinir 300 mg capsule
300 mg PO Q12H 6 Days Qty: 12 0RF
Continued
gabapentin 600 MG tablet
600 mg PO HS
bupropion HCl [Wellbutrin SR] 200 MG tablet sustained-release 12 hr
200 mg PO DAILY
multivitamin Tablet
1 tab PO DAILY
metoprolol succinate [Toprol XL] 25 mg Tablet Extended Release 24 Hr
12.5 mg PO DAILY
ondansetron HCl 8 mg Tablet
8 mg PO [id number] PRN (Reason: nausea)
levothyroxine [Synthroid] 150 mcg Tablet
150 mcg PO DAILY
Simponi ARIA 12.5 mg/mL Solution
100 mg IV Q8W
tramadol 50 mg Tablet
50 mg PO TIDPRN PRN (Reason: moderate pain) Qty: 7 0RF
Discontinued
cyanocobalamin (vitamin B-12) 1,000 MCG tablet
1,000 mcg PO DAILY
aspirin 81 MG tablet,chewable
81 mg PO DAILY
atorvastatin 20 mg Tablet
40 mg PO DAILY
prednisone 5 mg Tablet
5 mg PO DAILYPRN PRN (Reason: ra inflammation)
loperamide 2 mg Tablet
2 mg PO Q6HPRN PRN (Reason: diarrhea)
pantoprazole [Protonix] 40 mg Tablet,Delayed Release (Dr/Ec)
40 mg PO DAILY
lisinopril 2.5 mg Tablet
2.5 mg PO DAILY Qty: 30 0RF
Eliquis 5 mg tablet
5 mg PO BID 30 Days Qty: 60 0RF
Rx Instructions:
Take one tablet starting from tomorrow 05/17/24.
olanzapine 5 mg Tablet,Disintegrating
10 mg PO HS
Discharge Orders:
Discharge Patient (As Directed); Ordered 08/01/24
Ordered By: Olga Gallardo
Discharge Date and Time
Print Language: SLOVENIAN
[2024-08-01 14:10] VITALS: BP 105/68
[2024-08-03 15:59] LABS: BCR-ABL1 Source Whole Blood; BCR-ABL1, Diagnostic Qual Not Detected
--- NOTE | 2024-08-11 15:37 | PN.CDI ---
CDI
- -
CDI:
Physician Documentation Request
Admit Date: 07/22/24 12:26
Dear Doctor Mignon Cifuentes,
07/25 oncology note states 'symptomatic anemia, Prior anemia w/ u was unrevealing'
07/25 Support Director note states 'Anemia/thrombocytopenia-due to underlying cancer '
Please clarify if a relationship exist between these conditions:
Yes, anemia is related to/associated with/due to patient's cancer.
No, anemia is not related to/associated with/due to patient's cancer
Unable to determine
Use of terms such as suspected, likely, concern for, or probable (associated with a specific diagnosis that is being evaluated, monitored, or treated as if it exists) are acceptable and can be coded in the inpatient setting, when documented at the
time of discharge.
Thank you,
Isela Funez
CDI Specialist
Please use your independent medical judgment in providing your response.
--- NOTE | 2024-08-12 09:11 | PN.CDI ---
CDI
- -
CDI:
Physician Documentation Request
Admit Date: 07/22/24 12:26
Dear Mignon Cifuentes,
07/25 oncology note states 'symptomatic anemia, Prior anemia w/ u was unrevealing'
07/25 [employer]r [employer] note states 'Anemia/thrombocytopenia-due to underlying cancer '
Please clarify if a relationship exist between these conditions:
Yes, anemia is related to/associated with/due to patient's cancer.
No, anemia is not related to/associated with/due to patient's cancer
Unable to determine
Use of terms such as suspected, likely, concern for, or probable (associated with a specific diagnosis that is being evaluated, monitored, or treated as if it exists) are acceptable and can be coded in the inpatient setting, when documented at the
time of discharge.
Thank you,
Isela Funez RN, BSN
CDI Specialist
tiger text
Please use your independent medical judgment in providing your response.
== END 2024-08-01 15:41 | DRG 180 ==
LOC: 2 NORTH 12:26
PROVIDERS: Hospitalist; Nurse Practitioner Acute Care; Nurse Practitioner Family; Physician Assistant; Radiology Diagnostic Radiology; ADMITTING PHYSICIAN Family Medicine; ATTENDING PHYSICIAN Internal Medicine; CONSULT PHYSICIAN Internal Medicine Cardiovascular Disease; CONSULT PHYSICIAN Internal Medicine Critical Care Medicine; CONSULT PHYSICIAN Internal Medicine Hematology & Oncology; CONSULT PHYSICIAN Internal Medicine Hospice and Palliative Medicine; CONSULT PHYSICIAN Physician Assistant; CONSULT PHYSICIAN Radiology Radiation Oncology; CONSULT PHYSICIAN Surgery; EMERGENCY PHYSICIAN Emergency Medicine; FAMILY PHYSICIAN Registered Nurse Case Management
PROC: 30243N1 Transfusion of Nonautologous Red Blood Cells into Central Vein, Percutaneous Approach (ICD-10-PCS; 2024-07-22)
PROC: 30243R1 Transfusion of Nonautologous Platelets into Central Vein, Percutaneous Approach (ICD-10-PCS; 2024-07-23)
PROC: 06H03DZ Insertion of Intraluminal Device into Inferior Vena Cava, Percutaneous Approach (ICD-10-PCS; 2024-07-30)
PROC: 3E02340 Introduction of Influenza Vaccine into Muscle, Percutaneous Approach (ICD-10-PCS; 2024-08-01)
DX: C34.90 Malignant neoplasm of unspecified part of unspecified bronchus or lung (principal); A41.9 Sepsis, unspecified organism; I26.99 Other pulmonary embolism without acute cor pulmonale; E43 Unspecified severe protein-calorie malnutrition; R65.21 Severe sepsis with septic shock; C79.51 Secondary malignant neoplasm of bone; I50.22 Chronic systolic (congestive) heart failure; E87.1 Hypo-osmolality and hyponatremia; R64 Cachexia; Z68.1 Body mass index [BMI] 19.9 or less, adult; I42.9 Cardiomyopathy, unspecified; I31.31 Malignant pericardial effusion in diseases classified elsewhere; D63.0 Anemia in neoplastic disease; N30.80 Other cystitis without hematuria; Z51.5 Encounter for palliative care; I48.0 Paroxysmal atrial fibrillation; I11.0 Hypertensive heart disease with heart failure; I65.21 Occlusion and stenosis of right carotid artery; R11.2 Nausea with vomiting, unspecified; R19.7 Diarrhea, unspecified; G89.29 Other chronic pain; M54.50 Low back pain, unspecified; E86.0 Dehydration; J44.9 Chronic obstructive pulmonary disease, unspecified; E86.1 Hypovolemia; E83.42 Hypomagnesemia; R62.7 Adult failure to thrive; F32.A Depression, unspecified; E03.9 Hypothyroidism, unspecified; R04.0 Epistaxis; E78.00 Pure hypercholesterolemia, unspecified; F41.9 Anxiety disorder, unspecified; I25.10 Atherosclerotic heart disease of native coronary artery without angina pectoris; B96.1 Klebsiella pneumoniae [K. pneumoniae] as the cause of diseases classified elsewhere; D69.59 Other secondary thrombocytopenia; I08.0 Rheumatic disorders of both mitral and aortic valves; E88.09 Other disorders of plasma-protein metabolism, not elsewhere classified; R94.31 Abnormal electrocardiogram [ECG] [EKG]; E11.51 Type 2 diabetes mellitus with diabetic peripheral angiopathy without gangrene; G47.00 Insomnia, unspecified; M06.9 Rheumatoid arthritis, unspecified; Z66 Do not resuscitate; Z89.611 Acquired absence of right leg above knee; Z79.01 Long term (current) use of anticoagulants; Z87.891 Personal history of nicotine dependence; Z92.21 Personal history of antineoplastic chemotherapy; Z92.3 Personal history of irradiation; Z86.711 Personal history of pulmonary embolism; Z23 Encounter for immunization; Z79.82 Long term (current) use of aspirin; Z79.890 Hormone replacement therapy; Z98.62 Peripheral vascular angioplasty status; Z86.73 Personal history of transient ischemic attack (TIA), and cerebral infarction without residual deficits; Z91.148 Patient's other noncompliance with medication regimen for other reason; Z79.52 Long term (current) use of systemic steroids
CPT/HCPCS: 93308; 37191; 71046; 71260; 74177; 80048; 80053; 81003; 81015; 81206; 81207; 81208; 82607; 82728; 82746; 82962; 83036; 83540; 83550; 83605; 83690; 83735; 83880; 84100; 84134; 84145; 84484; 85025; 85027; 85379; 85384; 85610; 85730; 86850; 86900; 86901; 86920; 86922; 87040; 87070; 87077; 87086; 87186; 90662; 93005; 93321; 93325; 93970; 96361; 96374; 97163; 97167; 97530; 99285; C1880; G0008; P9016; P9073; Q9967

== ENCOUNTER → 2024-08-05 09:23 | Outpatient (REF) | payer OTHER, MEDICARE, SELFPAY ==
[2024-08-05 11:28] LABS: Hematocrit 24.4 % (39.0-52.0); Hemoglobin 8.4 g/dL (13.0-18.0); Mean Corp Hgb Conc. 34.4 g/dL (33.0-37.0); Mean Corpuscular Hgb 31.3 pg (27.0-31.0); Mean Platelet Volume 12.6 fL (7.4-10.4); Platelet Count 35 10^3/uL (130-400); Red Blood Cell Count 2.68 10^6/uL (4.70-6.10); Red Cell Dist. Width 17.7 % (11.5-14.5); White Blood Cell Count 5.8 10^3/uL (4.8-10.8)
[2024-08-05 11:54] LABS: ALT (SGPT) < 10 U/L (0-50); AST (SGOT) 28 U/L (17-59); Albumin 1.7 g/dl (3.5-5.0); Alkaline Phosphatase 98 U/L (38-126); Blood Urea Nitrogen 17 mg/dl (9-20); Calcium 7.1 mg/dl (8.4-10.2); Carbon Dioxide 28 mmol/L (22-30); Chloride 101 mmol/L (98-107); Glucose 56 mg/dl (70-99); Magnesium 1.8 mg/dl (1.6-2.3); Potassium 4.1 mmol/L (3.5-5.1); Sodium 134 mmol/L (135-145); Total Bilirubin 0.8 mg/dl (0.2-1.3); Total Protein 4.5 g/dl (6.3-8.2); eGFR > 60.00
== END ==
LOC: OLABWHC 09:23
PROVIDERS: ATTENDING PHYSICIAN Family Medicine
DX: I10 Essential (primary) hypertension (principal); N39.0 Urinary tract infection, site not specified; M06.9 Rheumatoid arthritis, unspecified
CPT/HCPCS: 36415; 80053; 83735; 85027